=== PATIENT | male | born 1950 | race American Indian/Alaskan Native ===

== ENCOUNTER 2017-06-01 10:25 | Inpatient (IN) | payer MEDICARE ==
[2017-06-01 10:36] VITALS: BMI 24.3
--- NOTE | 2017-06-01 11:04 | ED PDOC ---
Arrival/HPI - General Chief Complaint: Abnormal Labs Time Seen by Provider: 06/01/17 10:57 Historian: Patient - History of Present Illness Narrative History of Present Illness (Text): 06/01/17 10:50 Shashank Michelle is a 67 year old male, whose past medical history includes CAD, stents, hypertension, and high cholesterol, who was sent in by Dr. Michelle, PMD, for evaluation of low WBC from routine blood work yesterday. Patient states that this has never happened to him before. Patient denies any urinary symptoms , hematuria, hematochezia. He does report dyspnea on exertion for 2 weeks. PMD: Dr. Michelle Time/Duration: 24 hours Symptom Onset: Gradual Symptom Course: Unchanged Activities at Onset: Rest Past Medical History - Provider Review Nursing Documentation Reviewed: Yes - Cardiac Hx Cardiac Disorders: Yes Hx Hypertension: Yes - Pulmonary Hx Respiratory Disorders: No - Neurological Hx Neurological Disorder: No - HEENT Hx HEENT Disorder: No - Renal Hx Renal Disorder: No - Endocrine/Metabolic Hx Endocrine Disorders: No - Hematological/Oncological Hx Blood Transfusions: No Hx Blood Transfusion Reaction: No - Integumentary Hx Dermatological Disorder: No - Musculoskeletal/Rheumatological Hx Falls: No - Gastrointestinal Hx Gastrointestinal Disorders: No - Genitourinary/Gynecological Hx Prostate Problems: Yes (enlarged) - Psychiatric Hx Psychophysiologic Disorder: No Hx Substance Use: No - Surgical History Hx Cardiac Catheterization: Yes Hx Coronary Stent: Yes (x2 04/2014, x2 2011) Hx Inguinal Hernia Repair: Yes (right) - Anesthesia Hx Anesthesia Reactions: No Hx Malignant Hyperthermia: No - Suicidal Assessment Feels Threatened In Home Enviroment: No Family/Social History - Physician Review Nursing Documentation Reviewed: Yes Family/Social History: No Known Family HX Smoking Status: Heavy Smoker > 10 Cigarettes Daily Hx Alcohol Use: No Hx Substance Use: No Hx Substance Use Treatment: No Allergies/Home Meds Allergies/Adverse Reactions: Allergies No Known Allergies Allergy (Verified 02/09/15 11:13) Home Medications: Home Meds Medication Instructions Recorded Confirmed Clopidogrel [Plavix] 75 mg PO DAILY 02/09/15 06/01/17 Enalapril Maleate [Enalapril] 10 mg PO DAILY 02/09/15 06/01/17 Simvastatin 40 mg PO DAILY 02/09/15 06/01/17 Tamsulosin [Flomax] 0.4 mg PO DAILY 02/09/15 06/01/17 amLODIPine [Norvasc] 10 mg PO DAILY 02/09/15 06/01/17 Review of Systems - Physician Review All systems were reviewed & negative as marked: Yes - Review of Systems Constitutional: Other (Low WBC). absent: Fevers, Night Sweats Eyes: absent: Vision Changes ENT: absent: Hearing Changes Respiratory: SOB (on exertion). absent: Cough Cardiovascular: absent: Chest Pain Gastrointestinal: absent: Abdominal Pain Genitourinary Male: absent: Dysuria Musculoskeletal: absent: Arthralgias Skin: absent: Rash, Pruritis Neurological: absent: Headache Endocrine: absent: Diaphoresis Hemo/Lymphatic: absent: Adenopathy Psychiatric: absent: Anxiety Physical Exam - Physical Exam Narrative Physical Exam (Text): Constitutional: No acute distress. Head: Normocephalic. Atraumatic. Eyes: PERRL. Conjunctival pallor. ENT: Moist mucous membranes. Neck: Supple. Cardiovascular: Regular rate. Cap refill < 2 seconds. Chest: No tenderness. Respiratory: Clear to auscultation bilaterally. GI: Soft. Nontender. Nondistended. Back: No CVA tenderness. Musculoskeletal: No tenderness or swelling of extremities. Skin: No rash. Neurologic: Alert, no focal deficit. Vital Signs Reviewed: Yes Vital Signs Temp Pulse Resp BP Pulse Ox 06/01/17 13:36 98.1 F 87 18 137/86 06/01/17 13:15 98.3 F 90 18 115/75 06/01/17 12:51 98.3 F 82 18 132/75 94 L 06/01/17 10:35 99 F 94 H 20 133/77 96 Temperature: Afebrile Blood Pressure: Normal Pulse: Regular Respiratory Rate: Tachypneic Appearance: Positive for: Well-Appearing, Non-Toxic, Comfortable Pain Distress: None Mental Status: Positive for: Alert and Oriented X 3 Medical Decision Making ED Course and Treatment: 06/01/17 10:57 Impression: 67 year old male complaining of low WBC, sent in by PMD after routine blood work yesterday. Plan: -- Type and Screen -- Labs -- Reassess and disposition Prior Visits: Notes and results from previous visits were reviewed. Patient last seen in the ED on 02/09/15 for RLQ abdominal pain for one day. Patient was admitted to hospitalist care for further evaluation. Progress Notes: 06/01/17 12:17 Chest X-ray: Dictator : Roland Harvey MD FINDINGS: LUNGS:No active pulmonary disease. PLEURA:No significant pleural effusion identified, no pneumothorax apparent. CARDIOVASCULAR:Mild cardiomegaly OSSEOUS STRUCTURES:No significant abnormalities. VISUALIZED UPPER ABDOMEN:Normal. OTHER FINDINGS:None. IMPRESSION: No active disease. Labs show pancytopenia, which confirms outpatient labs. Dr. Michelle recommends blood transfusion and will require further admission for evaluation of new pancytopenia and symptomatic anemia. - Lab Interpretations Lab Results: 06/01/17 11:18 06/01/17 11:18 Lab Results 06/01/17 11:18: Blood Type A POSITIVE, Antibody Screen Negative, Crossmatch See Detail, BBK History Checked Patient has bt 06/01/17 11:18: Sodium 141, Potassium 3.9, Chloride 107, Carbon Dioxide 25, Anion Gap 13, BUN 20, Creatinine 1.2, Est GFR ( Amer) > 60, Est GFR (Non- Af Amer) > 60, Random Glucose 106, Calcium 8.8, Total Bilirubin 0.6, AST 16, ALT 24, Alkaline Phosphatase 43, Total Protein 6.4, Albumin 4.0, Globulin 2.4, Albumin/Globulin Ratio 1.7 06/01/17 11:18: PT 16.8 H, INR 1.56 H, APTT 38.3 H 06/01/17 11:18: WBC 1.0 L* D, RBC 1.67 L, Hgb 5.4 L* D, Hct 17.3 L*, MCV 103.6, MCH 32.3, MCHC 31.2, RDW 17.4 H, Plt Count 124, MPV 9.3, Neutrophils % (Manual) 65, Band Neutrophils % 1, Lymphocytes % (Manual) 32, Monocytes % (Manual) 1, Eosinophils % (Manual) 1, Nucleated RBC % 1, Platelet Evaluation Low, Hypochromasia Slight, Poikilocytosis (manual Slight, Anisocytosis (manual) Slight, Ovalocytes Slight I have reviewed the lab results: Yes - RAD Interpretation Radiology Orders: 06/01/17 11:47 CHEST PORTABLE [RAD] Stat - Medication Orders Current Medication Orders: Amlodipine Besylate (Norvasc) 10 mg PO DAILY [facility] Atorvastatin Calcium (Lipitor) 40 mg PO DAILY [facility] Clopidogrel Bisulfate (Plavix) 75 mg PO DAILY [facility] Lisinopril (Zestril) 10 mg PO DAILY [facility] Nicotine (Nicoderm Cq) 1 patch TD DAILY [facility] Last Admin: 06/01/17 16:50 Dose: 1 patch Tamsulosin HCl (Flomax) 0.4 mg PO DAILY [facility] - Scribe Statement The provider has reviewed the documentation as recorded by the Michelle Westbrook Provider Scribe Attestation: All medical record entries made by the Michelle were at my direction and personally dictated by me. I have reviewed the chart and agree that the record accurately reflects my personal performance of the history, physical exam, medical decision making, and the department course for this patient. I have also personally directed, reviewed, and agree with the discharge instructions and disposition. Disposition/Present on Arrival - Present on Arrival Any Indicators Present on Arrival: No History of DVT/PE: No History of Uncontrolled Diabetes: No Urinary Catheter: No History of Decub. Ulcer: No History Surgical Site Infection Following: None - Disposition Have Diagnosis and Disposition been Completed?: Yes Diagnosis: Symptomatic anemia, Pancytopenia Disposition: HOSPITALIZED Disposition Time: 12:30 Patient Plan: Admission Condition: FAIR
[2017-06-01 11:30] LABS: MEAN CELL VOLUME 103.6 fL (80.0-105.0); MEAN CORPUSCULAR HEMOGLOBIN 32.3 pg (25.0-35.0); MEAN CORPUSCULAR HGB CONC 31.2 g/dl (31.0-37.0); MEAN PLATELET VOLUME 9.3 fl (7.0-11.0); PLATELET COUNT 124 10^3/uL (120.0-450.0); RBC 1.67 10^6/uL (3.5-6.1); RED CELL DISTRIBUTION WIDTH 17.4 % (11.5-14.5)
[2017-06-01 11:32] LABS: INR 1.56 (0.93-1.08); PARTIAL THROMBOPLASTIN TIME 38.3 Seconds (23.7-30.8); PROTHROMBIN TIME 16.8 Seconds (9.9-11.8)
[2017-06-01 11:33] LABS: ALB/GLOB RATIO 1.7 (1.1-1.8); ALT/SGPT 24 U/L (7-56); AST/SGOT 16 U/L (15-59); BLOOD UREA NITROGEN 20 mg/dL (7-21); CALCIUM 8.8 mg/dL (8.4-10.5); GFR AFRICAN-AMERICAN > 60; GFR NON-AFRICAN AMERICAN > 60
[2017-06-01 11:42] LABS: HEMOGLOBIN 5.4 gm/dL (14.0-18.0)
[2017-06-01 11:53] LABS: BAND 1 % (0-2); EOSINOPHIL 1 % (0.0-3.0); HYPOCHROMIA SLIGHT; LYMPHOCYTE 32 % (22.0-35.0); MONOCYTE 1 % (1.0-6.0); NEUTROPHIL 65 % (50.0-70.0); NUCLEATED RED BLOOD CELL 1 %; PLATELET ESTIMATE LOW (NORMAL); POIKILOCYTOSIS SLIGHT
[2017-06-01 11:54] LABS: ANISOCYTOSIS SLIGHT; OVALOCYTES SLIGHT
--- NOTE | 2017-06-01 12:08 | RAD ---
HISTORY: anemia COMPARISON: 02/09/2015 FINDINGS: LUNGS: No active pulmonary disease. PLEURA: No significant pleural effusion identified, no pneumothorax apparent. CARDIOVASCULAR: Mild cardiomegaly OSSEOUS STRUCTURES: No significant abnormalities. VISUALIZED UPPER ABDOMEN: Normal. OTHER FINDINGS: None. IMPRESSION: No active disease.
[2017-06-01] MEDS ORDERED: Barium Sulfate Susp 2.1% w/v, 2.0% w/w 450 mL Bottle PO ONE (19:22)
[2017-06-02 07:48] LABS: GRAN # 0.51 (1.4-6.5); LYMPH # 0.5 (1.2-3.4); LYMPH % 45.1 % (22.0-35.0); MEAN CORPUSCULAR HEMOGLOBIN 31.2 pg (25.0-35.0); MEAN CORPUSCULAR HGB CONC 32.1 g/dl (31.0-37.0); MEAN PLATELET VOLUME 9.9 fl (7.0-11.0); MONO % 2.9 % (1.0-6.0); PLATELET COUNT 119 10^3/uL (120.0-450.0); RBC 2.31 10^6/uL (3.5-6.1); RED CELL DISTRIBUTION WIDTH 19.9 % (11.5-14.5)
[2017-06-02 07:51] LABS: HEMOGLOBIN 7.2 gm/dL (14.0-18.0)
--- NOTE | 2017-06-02 09:27 | CARD ---
APPROVED REPORT EKG Measurement Heart [id number] <Conclusion> Sinus rhythm with occasional premature ventricular complexes and premature atrial complexes Possible Left atrial enlargement Borderline ECG
--- NOTE | 2017-06-02 10:19 | CP.PCM.CON ---
History of Present Illness - History of Present Illness History of Present Illness: this patient was seen and evaluated earlier . Discussed with nursing staff. This 67-year-old patient with a past medical history of coronary artery disease status post PCI on aspirin and Plavix hypertension dyslipidemia was found to have a very low blood count on routine examination was sent to the emergency room for further evaluation. Patient has been complaining of some shortness of breath on exertion. Denies any history of bleeding per rectum melena and abdominal pain. Past medical history Coronary artery disease Hypertension Status post appendicectomy Social history positive for smoking more than 10 per day denies alcohol Family history is noncontributory Allergies no known drug allergy Past Patient History - Past Social History Smoking Status: Heavy Smoker > 10 Cigarettes Daily - CARDIAC Hx Cardiac Disorders: Yes Hx Hypertension: Yes - PULMONARY Hx Respiratory Disorders: No - NEUROLOGICAL Hx Neurological Disorder: No - HEENT Hx HEENT Problems: No - RENAL Hx Chronic Kidney Disease: No - ENDOCRINE/METABOLIC Hx Endocrine Disorders: No - HEMATOLOGICAL/ONCOLOGICAL Hx Blood Transfusions: No Hx Blood Transfusion Reaction: No - INTEGUMENTARY Hx Dermatological Problems: No - MUSCULOSKELETAL/RHEUMATOLOGICAL Hx Falls: No - GASTROINTESTINAL Hx Gastrointestinal Disorders: No - GENITOURINARY/GYNECOLOGICAL Hx Prostate Problems: Yes (enlarged) - PSYCHIATRIC Hx Psychophysiologic Disorder: No Hx Substance Use: No - SURGICAL HISTORY Hx Cardiac Catheterization: Yes Hx Coronary Stent: Yes (x2 04/2014, x2 2011) - ANESTHESIA Hx Anesthesia Reactions: No Hx Malignant Hyperthermia: No Meds Allergies/Adverse Reactions: Allergies Allergy/AdvReac Type Severity Reaction Status Date / Time No Known Allergies Allergy Verified 02/09/15 11:13 - Medications Medications: Current Medications Amlodipine Besylate (Norvasc) 10 mg PO DAILY [facility] Atorvastatin Calcium (Lipitor) 40 mg PO DAILY [facility] Clopidogrel Bisulfate (Plavix) 75 mg PO DAILY [facility] Lisinopril (Zestril) 10 mg PO DAILY [facility] Nicotine (Nicoderm Cq) 1 patch TD DAILY [facility] Last Admin: 06/01/17 16:50 Dose: 1 patch Tamsulosin HCl (Flomax) 0.4 mg PO DAILY [facility] Physical Exam - Constitutional Appears: Well, No Acute Distress - Head Exam Head Exam: absent: ATRAUMATIC, NORMOCEPHALIC - Eye Exam Eye Exam: EOMI, PERRL - ENT Exam ENT Exam: Mucous Membranes Moist, Normal Exam - Neck Exam Neck exam: Negative for: Full Rom, Thyromegaly - Respiratory Exam Respiratory Exam: Clear to Auscultation Bilateral, NORMAL BREATHING PATTERN - Cardiovascular Exam Cardiovascular Exam: +S1, +S2. absent: JVD - GI/Abdominal Exam GI & Abdominal Exam: Normal Bowel Sounds. absent: Guarding, Mass, Tenderness - Extremities Exam Extremities exam: Negative for: pedal edema, tenderness - Neurological Exam Neurological exam: Alert, Oriented x3 - Psychiatric Exam Psychiatric exam: Normal Affect, Normal Mood Results - Vital Signs Recent Vital Signs: Last Vital Signs Temp 98.7 F 06/01/17 19:11 Pulse 87 06/01/17 19:11 Resp 16 06/01/17 19:11 BP 138/81 06/01/17 19:11 Pulse Ox 97 06/01/17 16:00 - Labs Result Diagrams: 06/02/17 07:00 06/01/17 11:18 Assessment & Plan - Assessment and Plan (Free Text) Assessment: 1. Pancytopenia rule out bone marrow etiology 2. Neutropenia ANC was 650 3. Coronary artery disease status post PCI on Plavix 4. Other comorbidities include dyslipidemia hypertension 5. Severe anemia hemoglobin 5.4. No obvious GI source of blood loss Plan: 1. Stool for occult blood 2. Iron studies serum B12 folate and close account 3. CT scan of the abdomen and pelvis with only by mouth contrast to rule out any mass lesion rule out retroperitoneal lymphadenopathy 4. Hematology evaluation 5. Neutropenic precautions Thank you very much for allowing us to participate in the care of the patient. [facility] will continue to closely follow up his care and suggest further recommendations based on the clinical course - Date & Time Date: 06/01/17 Time: 17:30
--- NOTE | 2017-06-02 10:32 | CP.PCM.HP ---
History of Present Illness - History of Present Illness History of Present Illness: 67 yo male with pancytopenia admitted for transfx and further eval Present on Admission - Present on Admission Any Indicators Present on Admission: No Past Patient History - Past Social History Smoking Status: Heavy Smoker > 10 Cigarettes Daily - CARDIAC Hx Cardiac Disorders: Yes Hx Hypertension: Yes - PULMONARY Hx Respiratory Disorders: No - NEUROLOGICAL Hx Neurological Disorder: No - HEENT Hx HEENT Problems: No - RENAL Hx Chronic Kidney Disease: No - ENDOCRINE/METABOLIC Hx Endocrine Disorders: No - HEMATOLOGICAL/ONCOLOGICAL Hx Anemia: Yes Hx Blood Transfusions: No Hx Blood Transfusion Reaction: No - INTEGUMENTARY Hx Dermatological Problems: No - MUSCULOSKELETAL/RHEUMATOLOGICAL Hx Falls: No - GASTROINTESTINAL Hx Gastrointestinal Disorders: No - GENITOURINARY/GYNECOLOGICAL Hx Prostate Problems: Yes (enlarged) - PSYCHIATRIC Hx Psychophysiologic Disorder: No Hx Substance Use: No - SURGICAL HISTORY Hx Cardiac Catheterization: Yes Hx Coronary Stent: Yes (x2 04/2014, x2 2011) - ANESTHESIA Hx Anesthesia Reactions: No Hx Malignant Hyperthermia: No Meds Allergies/Adverse Reactions: Allergies Allergy/AdvReac Type Severity Reaction Status Date / Time No Known Allergies Allergy Verified 02/09/15 11:13 Physical Exam - Head Exam Head Exam: ATRAUMATIC, NORMAL INSPECTION, NORMOCEPHALIC - Eye Exam Eye Exam: EOMI, Normal appearance, PERRL Pupil Exam: PERRL - ENT Exam ENT Exam: Mucous Membranes Moist - Neck Exam Neck exam: Positive for: Normal Inspection - Respiratory Exam Respiratory Exam: Clear to Auscultation Bilateral, NORMAL BREATHING PATTERN - Cardiovascular Exam Cardiovascular Exam: REGULAR RHYTHM - GI/Abdominal Exam GI & Abdominal Exam: Normal Bowel Sounds, Soft - Extremities Exam Extremities exam: Positive for: normal inspection - Back Exam Back exam: NORMAL INSPECTION - Neurological Exam Neurological exam: Alert, CN II-XII Intact, Normal Gait, Oriented x3, Reflexes Normal - Psychiatric Exam Psychiatric exam: Normal Affect, Normal Mood - Skin Skin Exam: Normal Color, Warm Results - Vital Signs Recent Vital Signs: Last Vital Signs Temp 98.8 F 06/02/17 08:24 Pulse 79 06/02/17 08:24 Resp 18 06/02/17 08:24 BP 148/91 H 06/02/17 09:36 Pulse Ox 95 06/02/17 08:24 - Labs Result Diagrams: 06/02/17 07:00 06/01/17 11:18 Labs: Laboratory Results - last 24 hr 06/02/17 07:00 WBC 1.0 L* RBC 2.31 L Hgb 7.2 L D Hct 22.4 L MCV 97.0 MCH 31.2 MCHC 32.1 RDW 19.9 H Plt Count 119 L MPV 9.9 Gran % 50.0 Lymph % (Auto) 45.1 H Lyon % (Auto) 2.9 Eos % (Auto) 2.0 Baso % (Auto) 0.0 Gran # 0.51 L Lymph # 0.5 L Lyon # 0.0 L Eos # 0.0 Baso # 0.00 Assessment & Plan (1) Pancytopenia Status: Acute (2) Symptomatic anemia Status: Acute (3) Hypertension Status: Acute - Assessment and Plan (Free Text) Plan: monitor Hb/Hct, GI consult, heme-onc consult, transfuse prbcs - Date & Time Date: 06/02/17 Time: 09:30
[2017-06-02 10:56] LABS: % IRON SATURATION 59 % (20-55); IRON 163 ug/dL (45-180); TOTAL IRON BINDING CAPACITY 276 ug/dL (261-462)
--- NOTE | 2017-06-02 14:02 | CT ---
PROCEDURE: CT abdomen and pelvis dated Leo seen note made. HISTORY: Low hemoglobin and hematocrit COMPARISON: Comparison made with CT scan abdomen pelvis 02/09/2015 TECHNIQUE: Contiguous helical/transaxial images of the abdomen and pelvis performed following oral contrast administration. Intravenous contrast not injected per request. Additional 2 dimensional sagittal and coronal reformats provided. Radiation dose: Total exam DLP = 419.08 mGy-cm. This CT exam was performed using one or more of the following dose reduction techniques: Automated exposure control, adjustment of the mA and/or kV according to patient size, and/or use of iterative reconstruction technique. FINDINGS: LOWER THORAX: Heart is enlarged. In addition, the the cardiac chambers exhibit low attenuation suggesting anemia however clinical correlation recommended. No significant pericardial effusion. Mild atelectasis/scarring changes present within both lung bases including the lingular and middle lobe regions. No evidence of effusion or basilar pneumothorax. Small hiatal hernia. The go LIVER: The liver exhibits normal size measuring approximately 16.2 cm in CC in dimension. . There are several low-attenuation foci within the left left lobe liver under a cm in size in exhibiting Hounsfield units in the single digits likely representing cysts. Additionally, there is and 12.4 mm elliptical shaped low-attenuation focus inferior aspect right lobe liver also likely representing cyst. Followup interval could be performed to assess stability. Note that there appears to be additional very tiny foci scattered throughout the left and right lobes too small to characterize. GALLBLADDER AND BILE DUCTS: The gallbladder is physiologically distended. No evidence of intraluminal gallbladder calculi. PANCREAS: Visualized portions of the pancreas appear unremarkable without mass collection or calcification. No gross intrahepatic biliary ductal dilatation. Move to the SPLEEN: The spleen exhibits normal size and attenuation pattern without mass collection or calcification. ADRENALS: No adrenal lesions seen. KIDNEYS AND URETERS: There are multiple low-attenuation foci left kidney the largest of which are located in the upper and midpole region consistent with renal cysts. The largest in the anteromedial upper pole measures approximately 5.1 cm and the 2nd largest in the upper/ midpole posteriorly measures approximately 4.3 cm. There are also a few smaller low-attenuation foci lower pole right kidney. Mild infiltration changes seen in the perinephric fat bilaterally nonspecific. No evidence of nephrolithiasis or hydronephrosis BLADDER: Urinary bladder is incompletely distended which may in part account for thick-walled appearance. Muscular hypertrophy may contribute. Note that the possibility of an intrinsic/ invasive wall lesion not excluded. As there is markedly enlarged prostate gland which encroaches into the floor of the urinary bladder and as such may be indistinguishable from a bladder wall lesion arising from the floor. REPRODUCTIVE: As mentioned above, the prostate gland is enlarged. Prostate gland measures approximately 6.7 cm trans by 7.65 cm cc by 7.0 cm in AP. Findings likely due to BPH however correlation with PSA recommended to exclude prostate carcinoma. Prostatic calcification noted. APPENDIX: Normal-appearing appendix of best seen on coronal image number [id number]. No periappendiceal inflammatory changes. BOWEL: Evaluation of the bowel is limited due to incomplete opacification. Stomach is incompletely distended which may account for thick-walled appearance. Gastritis or other intrinsic/invasive wall lesion not excluded. Visualized. There is AP somewhat ill-defined soft tissue density in the right lower quadrant of the abdomen anteriorly abutting the anterolateral abdominal wall. This could represent a conglomeration of under opacified small bowel however an concomitant inflammatory process or other soft tissue lesion not completely excluded. Clinical correlation recommended. Repeat CT scan with oral and intravenous contrast material to assess small bowel in this area recommended. No evidence of acute mechanical small bowel obstruction. Oral contrast material has extended into the colon to the level of the rectum. PERITONEUM: No gross free intraperitoneal air. No definitive free or loculated fluid collections. LYMPH NODES: Ill-defined soft tissue in the right aspect of the retroperitoneum adjacent to the anterior aspect of the IVC. The possibility of adenopathy this location not excluded. Additionally, there also appears to be multiple smaller retroperitoneal and probably some mesenteric lymph nodes. VASCULATURE: Unremarkable. No aortic aneurysm. BONES: Mild multilevel degenerative spondylosis of the lower thoracic and lumbar spine. There are no acute compression fractures no retropulsed fragments. Small bone island within the right femoral neck. No other suspicious sclerotic or lytic lesions identified. OTHER FINDINGS: None. IMPRESSION: There is a soft tissue density within the right lower quadrant of the abdomen of bordering the anterolateral aspect of the abdominal wall which may represent under opacified loops of small bowel however the possibility of an inflammatory process or other soft tissue lesion cannot be completely excluded. Recommend repeat CT scan with oral and intravenous contrast material to assess small bowel in this area. Suspect adenopathy in the right aspect of the retroperitoneum anterior to the IVC. There also appear to be small nonspecific retroperitoneal lymph nodes and possibly some mesenteric lymph nodes nonspecific. Multiple low-attenuation foci scattered throughout the hepatic parenchyma likely representing cysts however followup at interval could be performed to assess stability. Multiple bilateral renal cysts are present. Nonspecific infiltration changes seen within the perinephric fat bilaterally right greater than left. Markedly enlarged prostate gland which encroaches into the floor of the urinary bladder. Findings may be secondary to BPH however correlation with PSA recommended to exclude prostatic carcinoma. Wall thickening of the urinary bladder in part due to incomplete distention and muscular hypertrophy however given the encroachment of prostate gland into the floor of the urinary bladder, the possibility of a intrinsic invasive/lesion of the of the wall of the urinary bladder along the floor cannot be excluded. Clinical correlation recommended. No evidence of acute appendicitis. Findings consistent with thumb anemia as detailed above
[2017-06-02 18:07] LABS: FOLATE 8.1 ng/mL
[2017-06-03 09:07] LABS: HEMOGLOBIN 8.5 gm/dL (14.0-18.0); MEAN CELL VOLUME 92.6 fL (80.0-105.0); MEAN CORPUSCULAR HEMOGLOBIN 29.8 pg (25.0-35.0); MEAN CORPUSCULAR HGB CONC 32.2 g/dl (31.0-37.0); MEAN PLATELET VOLUME 9.1 fl (7.0-11.0); RBC 2.85 10^6/uL (3.5-6.1); RED CELL DISTRIBUTION WIDTH 20.2 % (11.5-14.5)
[2017-06-03 09:11] LABS: WHITE BLOOD COUNT 1.5 10^3/ul (4.5-11.0)
--- NOTE | 2017-06-03 12:36 | CP.PCM.PN ---
Subjective - Date & Time of Evaluation Date of Evaluation: 06/03/17 Time of Evaluation: 11:00 - Subjective Subjective: nad, no melena, no brbpr Objective - Vital Signs/Intake and Output Vital Signs (last 24 hours): Temp Pulse Resp BP Pulse Ox 98.4 F 76 20 139/88 95 06/03/17 08:17 06/03/17 08:17 06/03/17 08:17 06/03/17 10:39 06/03/17 08:17 Intake and Output: 06/03/17 06/03/17 06:59 18:59 Intake Total 825 240 Balance 825 240 - Medications Medications: Current Medications Amlodipine Besylate (Norvasc) 10 mg PO DAILY [facility] Last Admin: 06/03/17 10:39 Dose: 10 mg Atorvastatin Calcium (Lipitor) 40 mg PO DAILY [facility] Last Admin: 06/03/17 10:39 Dose: 40 mg Clopidogrel Bisulfate (Plavix) 75 mg PO DAILY [facility] Last Admin: 06/03/17 10:39 Dose: 75 mg Lisinopril (Zestril) 10 mg PO DAILY [facility] Last Admin: 06/03/17 10:39 Dose: 10 mg Nicotine (Nicoderm Cq) 1 patch TD DAILY [facility] Last Admin: 06/03/17 10:39 Dose: 1 patch Tamsulosin HCl (Flomax) 0.4 mg PO DAILY [facility] Last Admin: 06/03/17 10:39 Dose: 0.4 mg - Labs Labs: 06/03/17 08:30 PT 16.8 Seconds (9.9-11.8) H 06/01/17 11:18 INR 1.56 (0.93-1.08) H 06/01/17 11:18 APTT 38.3 Seconds (23.7-30.8) H 06/01/17 11:18 - Neck Exam Neck Exam: Full ROM - Respiratory Exam Respiratory Exam: Clear to Ausculation Bilateral, NORMAL BREATHING PATTERN - GI/Abdominal Exam GI & Abdominal Exam: Soft, Normal Bowel Sounds - Extremities Exam Extremities Exam: Full ROM, Normal Inspection - Neurological Exam Neurological Exam: Alert, Oriented x3 - Skin Skin Exam: Dry, Warm Assessment and Plan (1) Pancytopenia Status: Acute (2) Symptomatic anemia Status: Acute (3) Hypertension Status: Acute - Assessment and Plan (Free Text) Plan: monitor wbc, hb/hct, heme-on and GI w/u pending
[2017-06-03 16:31] VITALS: BP 126/84; PULSE 70; RESP 18; TEMP 98; O2SAT 96
[2017-06-03] MEDS ORDERED: Phytonadione 10 mg/ml Inj (Adult) SC ONE (22:35)
--- NOTE | 2017-06-03 22:45 | CP.PCM.CON ---
History of Present Illness - History of Present Illness History of Present Illness: 67 yo man sent to the ER by PMD because of low blood counts for transfusion and work up. 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 Patient denies night sweats, weight loss, bleeding, easy bruising, melena, BRBPR. PMHx- HTN, hyperlipidemia, ? history of pancytopenia with peripheral smear review done at for pancytopenia showing no increase in blasts or spherocytes. SocHX- H/O smoking 10 cigarettes daily for several years, lives alone, no ETOH use. Past Patient History - Past Social History Smoking Status: Heavy Smoker > 10 Cigarettes Daily - CARDIAC Hx Cardiac Disorders: Yes Hx Hypertension: Yes - PULMONARY Hx Respiratory Disorders: No - NEUROLOGICAL Hx Neurological Disorder: No - HEENT Hx HEENT Problems: No - RENAL Hx Chronic Kidney Disease: No - ENDOCRINE/METABOLIC Hx Endocrine Disorders: No - HEMATOLOGICAL/ONCOLOGICAL Hx Anemia: Yes Hx Blood Transfusions: No Hx Blood Transfusion Reaction: No - INTEGUMENTARY Hx Dermatological Problems: No - MUSCULOSKELETAL/RHEUMATOLOGICAL Hx Falls: No - GASTROINTESTINAL Hx Gastrointestinal Disorders: No - GENITOURINARY/GYNECOLOGICAL Hx Prostate Problems: Yes (enlarged) - PSYCHIATRIC Hx Psychophysiologic Disorder: No Hx Substance Use: No - SURGICAL HISTORY Hx Cardiac Catheterization: Yes Hx Coronary Stent: Yes (x2 04/2014, x2 2011) - ANESTHESIA Hx Anesthesia Reactions: No Hx Malignant Hyperthermia: No Meds Allergies/Adverse Reactions: Allergies Allergy/AdvReac Type Severity Reaction Status Date / Time No Known Allergies Allergy Verified 02/09/15 11:13 - Medications Medications: Current Medications Amlodipine Besylate (Norvasc) 10 mg PO DAILY [facility] Last Admin: 06/03/17 10:39 Dose: 10 mg Atorvastatin Calcium (Lipitor) 40 mg PO DAILY [facility] Last Admin: 06/03/17 10:39 Dose: 40 mg Clopidogrel Bisulfate (Plavix) 75 mg PO DAILY [facility] Last Admin: 06/03/17 10:39 Dose: 75 mg Cyanocobalamin (Vitamin B12 1000 Mcg/Ml Inj) 1,000 mcg SC DAILY [facility] Folic Acid (Folic Acid) 1 mg PO DAILY [facility] Lisinopril (Zestril) 10 mg PO DAILY [facility] Last Admin: 06/03/17 10:39 Dose: 10 mg Nicotine (Nicoderm Cq) 1 patch TD DAILY [facility] Last Admin: 06/03/17 10:39 Dose: 1 patch Phytonadione (Vitamin K Inj) 10 mg SC ONCE ONE Stop: 06/03/17 22:36 Tamsulosin HCl (Flomax) 0.4 mg PO DAILY [facility] Last Admin: 06/03/17 10:39 Dose: 0.4 mg Results - Vital Signs Recent Vital Signs: Last Vital Signs Temp 98.0 F 06/03/17 16:31 Pulse 70 06/03/17 16:31 Resp 18 06/03/17 16:31 BP 126/84 06/03/17 16:31 Pulse Ox 96 06/03/17 16:31 - Labs Result Diagrams: 06/03/17 08:30 06/01/17 11:18 Labs: Laboratory Results - last 24 hr 06/03/17 06/03/17 08:30 10:04 WBC 1.5 L* D RBC 2.85 L Hgb 8.5 L Hct 26.4 L MCV 92.6 MCH 29.8 MCHC 32.2 RDW 20.2 H Plt Count 114 L MPV 9.1 Stool Occult Blood Negative Assessment & Plan (1) Pancytopenia Assessment and Plan: Pancytopenia , neutropenia, progressive, ( for at least one year) with macrocytosis, without any history of liver disease, hypersplenism, evidence of hemolysis or immature cells in peripheral blood. DD- .Myelodysplastic syndrome .Megaloblastic anemia. Will replace B12, folic acid. Will need bone marrow exam, have discussed with patient about this and he is agreeable. Have discussed neutropenia and risks with patient( he has done fairly well despite this, as an outpatient). Status: Acute
[2017-06-04] MEDS ORDERED: Phytonadione 10 mg/ml Inj (Adult) SC ONE (05:00)
--- NOTE | 2017-06-04 14:05 | CP.PCM.DIS ---
Provider - Provider Date of Admission: 06/01/17 12:30 Attending physician: Ruben Michelle JD, MD Primary care physician: Ruben Michelle JD, MD Time Spent in preparation of Discharge (in minutes): 30 Diagnosis - Discharge Diagnosis (1) Pancytopenia Status: Acute (2) Symptomatic anemia Status: Acute (3) Hypertension Status: Acute Hospital Course - Lab Results Lab Results: Most Recent Lab Values WBC 1.5 10^3/ul (4.5-11.0) L* D 06/03/17 08:30 RBC 2.85 10^6/uL (3.5-6.1) L 06/03/17 08:30 Hgb 8.5 gm/dL (14.0-18.0) L 06/03/17 08:30 Hct 26.4 % (42.0-52.0) L 06/03/17 08:30 MCV 92.6 fL (80.0-105.0) 06/03/17 08:30 MCH 29.8 pg (25.0-35.0) 06/03/17 08:30 MCHC 32.2 g/dl (31.0-37.0) 06/03/17 08:30 RDW 20.2 % (11.5-14.5) H 06/03/17 08:30 Plt Count 114 10^3/uL (120.0-450.0) L 06/03/17 08:30 MPV 9.1 fl (7.0-11.0) 06/03/17 08:30 Gran % 50.0 % (50.0-68.0) 06/02/17 07:00 Lymph % (Auto) 45.1 % (22.0-35.0) H 06/02/17 07:00 Maury % (Auto) 2.9 % (1.0-6.0) 06/02/17 07:00 Eos % (Auto) 2.0 % (1.5-5.0) 06/02/17 07:00 Baso % (Auto) 0.0 % (0.0-3.0) 06/02/17 07:00 Gran # 0.51 (1.4-6.5) L 06/02/17 07:00 Lymph # 0.5 (1.2-3.4) L 06/02/17 07:00 Maury # 0.0 (0.1-0.6) L 06/02/17 07:00 Eos # 0.0 (0.0-0.7) 06/02/17 07:00 Baso # 0.00 K/mm3 (0.0-2.0) 06/02/17 07:00 Neutrophils % (Manual) 65 % (50.0-70.0) 06/01/17 11:18 Band Neutrophils % 1 % (0-2) 06/01/17 11:18 Lymphocytes % (Manual) 32 % (22.0-35.0) 06/01/17 11:18 Monocytes % (Manual) 1 % (1.0-6.0) 06/01/17 11:18 Eosinophils % (Manual) 1 % (0.0-3.0) 06/01/17 11:18 Nucleated RBC % 1 % 06/01/17 11:18 Platelet Evaluation Low (NORMAL) 06/01/17 11:18 Hypochromasia Slight 06/01/17 11:18 Poikilocytosis (manual Slight 06/01/17 11:18 Anisocytosis (manual) Slight 06/01/17 11:18 Ovalocytes Slight 06/01/17 11:18 Retic Count 0.97 % (0.5-1.5) 06/02/17 10:30 PT 16.8 Seconds (9.9-11.8) H 06/01/17 11:18 INR 1.56 (0.93-1.08) H 06/01/17 11:18 APTT 38.3 Seconds (23.7-30.8) H 06/01/17 11:18 Sodium 141 mmol/L (132-148) 06/01/17 11:18 Potassium 3.9 mmol/L (3.6-5.0) 06/01/17 11:18 Chloride 107 mmol/L (98-107) 06/01/17 11:18 Carbon Dioxide 25 mmol/L (21-33) 06/01/17 11:18 Anion Gap 13 (10-20) 06/01/17 11:18 BUN 20 mg/dL (7-21) 06/01/17 11:18 Creatinine 1.2 mg/dL (0.5-1.4) 06/01/17 11:18 Est GFR ( Amer) > 60 06/01/17 11:18 Est GFR (Non-Af Amer) > 60 06/01/17 11:18 Random Glucose 106 mg/dL (70-110) 06/01/17 11:18 Calcium 8.8 mg/dL (8.4-10.5) 06/01/17 11:18 Iron 163 ug/dL (45-180) 06/02/17 10:30 TIBC 276 ug/dL (261-462) 06/02/17 10:30 % Saturation 59 % (20-55) H 06/02/17 10:30 Ferritin 109.0 ng/mL 06/02/17 10:30 Total Bilirubin 0.6 mg/dL (0.2-1.3) 06/01/17 11:18 AST 16 U/L (15-59) 06/01/17 11:18 ALT 24 U/L (7-56) 06/01/17 11:18 Alkaline Phosphatase 43 U/L (38-133) 06/01/17 11:18 Lactate Dehydrogenase 469 U/L (333-699) 06/04/17 06:00 Total Protein 6.4 g/dL (5.8-8.3) 06/01/17 11:18 Albumin 4.0 g/dL (3.0-4.8) 06/01/17 11:18 Globulin 2.4 gm/dL 06/01/17 11:18 Albumin/Globulin Ratio 1.7 (1.1-1.8) 06/01/17 11:18 Vitamin B12 246 pg/mL (239-931) 06/02/17 10:30 Folate 8.1 ng/mL 06/02/17 10:30 Stool Occult Blood Negative (NEGATIVE) 06/03/17 10:04 Blood Type A POSITIVE 06/01/17 11:18 Antibody Screen Negative 06/01/17 11:18 Crossmatch See Detail 06/01/17 11:18 BBK History Checked Patient has bt 06/01/17 11:18 - Hospital Course Hospital Course: recieved 4 units prbcs, seen in consult by june rousseau for GI, no complications, outpatient w/u including BMBx recommended Discharge Exam - Head Exam Head Exam: ATRAUMATIC, NORMAL INSPECTION, NORMOCEPHALIC - Respiratory Exam Respiratory Exam: Clear to PA & Lateral, NORMAL BREATHING PATTERN - Cardiovascular Exam Cardiovascular Exam: REGULAR RHYTHM - GI/Abdominal Exam GI & Abdominal Exam: Normal Bowel Sounds Discharge Plan - Follow Up Plan Condition: FAIR Disposition: HOME/ ROUTINE Instructions: Anemia (DC), Vitamin B12 Deficiency (GEN) Additional Instructions: PT instructed to follow up with Dr. Forbes this week. PT instructed to follow up with Dr. Michelle for repeat labs next week. Referrals: Pedro Forbes MD [Medical Doctor] - Kojo Martins MD [Medical Doctor] -
--- NOTE | 2017-06-05 00:28 | PN ---
DATE: 06/04/2017 SUBJECTIVE: Seen and examined at the bedside earlier today. The patient denies any nausea, vomiting, or abdominal pain. No reports of any overt GI bleed. The patient with no new complaints. PHYSICAL EXAMINATION: VITAL SIGNS: Temperature 98, blood pressure 126/84, respirations 18, pulse 72, 97% on room air. HEENT: Sclerae are anicteric. NECK: Supple. CARDIAC: S1 and S2. LUNGS: Sound clear. ABDOMEN: With bowel sounds, soft, nontender. EXTREMITIES: No edema. NEURO: Awake, alert, and oriented. LABORATORY DATA: No new labs are noted for today. He did have stool for guaiac that was negative. Labs from yesterday were reviewed. The WBC is 1.5, H and H is 8.5 and 26.4. His CMP was within normal limits. The percent saturation is 59, iron 163, TIBC 276. ASSESSMENT AND PLAN: This is a 67-year-old male with a history of hypertension came with symptomatic anemia and pancytopenia. The patient is status post 4 units of packed RBC, history of coronary artery disease status post percutaneous coronary intervention was on aspirin and Plavix was found to have low blood count, presented to Emergency Room for further evaluation. The patient did have CT scan of abdomen and pelvis. It showed some soft tissue density in the right lower quadrant of the abdomen, could be *------* loops of small bowel, however, the possibility of an inflammatory process or soft tissue lesion cannot be completely excluded. There was also some small nonspecific retroperitoneal lymph nodes and possibly some mesenteric lymph nodes, nonspecific. Recommend IV contrast, this was done with oral contrast. Spoke to the patient, he is getting discharged today. He would benefit from GI workup at some point when his leukopenia has improved. He is right now undergoing workup with Hematology. He is to see Dr. Forbes later on this week as outpatient and for repeat labs next week. The patient was seen and case discussed with Dr. Martins. GHAZALA Leal
== END 2017-06-04 11:40 | disposition home or self-care (01) | DRG 810 ==
LOC: ED 10:25 → ERH 12:30 → 3RSO 13:53
PROVIDERS: ADMIT Internal Medicine; ATTEND Internal Medicine
DX: D61.818 Other pancytopenia (principal); D70.9 Neutropenia, unspecified; I10 Essential (primary) hypertension; D53.1 Other megaloblastic anemias, not elsewhere classified; D46.9 Myelodysplastic syndrome, unspecified; D75.89 Other specified diseases of blood and blood-forming organs; E78.00 Pure hypercholesterolemia, unspecified; E78.5 Hyperlipidemia, unspecified; I25.10 Atherosclerotic heart disease of native coronary artery without angina pectoris; Z79.02 Long term (current) use of antithrombotics/antiplatelets; Z79.899 Other long term (current) drug therapy; F17.210 Nicotine dependence, cigarettes, uncomplicated; Z95.5 Presence of coronary angioplasty implant and graft

== ENCOUNTER 2018-01-04 13:49 | Inpatient (IN) | payer MEDICARE, SELFPAY ==
[2018-01-04 14:41] VITALS: BMI 29.0
[2018-01-04] MEDS ORDERED: Promethazine/Cod 6.25mg-10mg/5ml Syr UD PO STA (14:42)
[2018-01-04] MEDS ORDERED: Albuterol 0.083% Inhal Sol (2.5 mg/3 mL) UD INH STA ×2 (14:43→18:21)
[2018-01-04] MEDS ORDERED: Sodium Chloride 0.9% 1,000 ML IV STA (14:43)
[2018-01-04 15:28] LABS: GRAN # 0.78 (1.4-6.5); GRAN % 81.2 % (50.0-68.0); HEMOGLOBIN 8.3 g/dL (14.0-18.0); LYMPH # 0.2 (1.2-3.4); LYMPH % 18.8 % (22.0-35.0); MEAN CELL VOLUME 99.6 fl (80.0-105.0); MEAN CORPUSCULAR HEMOGLOBIN 32.3 pg (25.0-35.0); MEAN CORPUSCULAR HGB CONC 32.4 g/dl (31.0-37.0); MEAN PLATELET VOLUME 10.4 fl (7.0-11.0); RBC 2.57 10^6/uL (3.5-6.1); RED CELL DISTRIBUTION WIDTH 17.9 % (11.5-14.5)
[2018-01-04 15:42] LABS: INR 1.45 (0.93-1.08); PARTIAL THROMBOPLASTIN TIME 29.8 Seconds (25.1-36.5); PROTHROMBIN TIME 16.6 SECONDS (9.4-12.5)
[2018-01-04 15:44] LABS: ALB/GLOB RATIO 1.8 (1.1-1.8); ALBUMIN 3.9 g/dL (3.0-4.8); ALT/SGPT 23 U/L (7-56); AST/SGOT 20 U/L (17-59); BLOOD UREA NITROGEN 22 mg/dL (7-21); CALCIUM 8.6 mg/dL (8.4-10.5); GFR AFRICAN-AMERICAN > 60; GFR NON-AFRICAN AMERICAN > 60
--- NOTE | 2018-01-04 15:54 | RAD ---
HISTORY: cough COMPARISON: 06/01/2017 FINDINGS: LUNGS: The lungs are well inflated. There is mild pulmonary venous congestion and mild interstitial pulmonary edema. There is ill-defined haziness in the right lower lobe. PLEURA: No significant pleural effusion identified, no pneumothorax apparent. CARDIOVASCULAR: The heart remains enlarged. OSSEOUS STRUCTURES: No significant abnormalities. VISUALIZED UPPER ABDOMEN: Normal. OTHER FINDINGS: None. IMPRESSION: Ill-defined haziness in the right lower lobe may represent developing pneumonia or pulmonary edema. Persistent mild cardiomegaly and pulmonary venous congestion.
[2018-01-04 16:25] LABS: VENOUS BLOOD GAS BASE EXCESS 0.5 mmol/L (0.0-2.0); VENOUS BLOOD GAS PO2 81 mm/Hg (30-55); VENOUS BLOOD PH 7.43 (7.32-7.43)
[2018-01-04] MEDS ORDERED: Amoxicillin-Clav 875-125 mg Tab PO STA (16:50)
--- NOTE | 2018-01-04 18:21 | ED PDOC ---
Arrival/HPI - General Chief Complaint: Weakness/Neurological Deficit Time Seen by Provider: 01/04/18 14:37 Historian: Patient - History of Present Illness Narrative History of Present Illness (Text): 01/04/18 18:18 67yo male with PMhx of myelodysplastic syndrome and on Chemotherapy referred to ED by his PMD for complaint of generalized weakness, fever, yellow productive cough, SOB with the cough, decreased appetite x 2days. He did not take any medication for the symptoms. Denies sick contact, travel, chest pain, diaphoresis, LE edema, calf pain, dizziness, nausea, abdominal pain, any other complaint. Past Medical History - Provider Review Nursing Documentation Reviewed: Yes - Cardiac Hx Cardiac Disorders: Yes Hx Hypertension: Yes - Pulmonary Hx Respiratory Disorders: No - Neurological Hx Neurological Disorder: No - HEENT Hx HEENT Disorder: No - Renal Hx Renal Disorder: No - Endocrine/Metabolic Hx Endocrine Disorders: No - Hematological/Oncological Hx Blood Disorders: Yes Hx Anemia: Yes Hx Blood Transfusions: No Hx Blood Transfusion Reaction: No - Integumentary Hx Dermatological Disorder: No - Musculoskeletal/Rheumatological Hx Musculoskeletal Disorders: No Hx Falls: No - Gastrointestinal Hx Gastrointestinal Disorders: No - Genitourinary/Gynecological Hx Genitourinary Disorders: No Hx Prostate Problems: Yes (enlarged) - Psychiatric Hx Psychophysiologic Disorder: No Hx Substance Use: No - Surgical History Hx Cardiac Catheterization: Yes Hx Coronary Stent: Yes (x2 04/2014, x2 2011) Other/Comment: fatty tissue removed from left shoulder/ back - Anesthesia Hx Anesthesia: Yes Hx Anesthesia Reactions: No Hx Malignant Hyperthermia: No - Suicidal Assessment Feels Threatened In Home Enviroment: No Family/Social History - Physician Review Nursing Documentation Reviewed: Yes Family/Social History: Unknown Family HX Smoking Status: Heavy Smoker > 10 Cigarettes Daily Hx Alcohol Use: No Hx Substance Use: No Hx Substance Use Treatment: No Allergies/Home Meds Allergies/Adverse Reactions: Allergies No Known Allergies Allergy (Verified 02/09/15 11:13) Home Medications: Home Meds Medication Instructions Recorded Confirmed Enalapril Maleate 10 mg PO DAILY 02/09/15 01/04/18 Simvastatin 40 mg PO DAILY 02/09/15 01/04/18 Omeprazole [Omeprazole] 20 mg PO DAILY 09/06/17 01/04/18 Review of Systems - Physician Review All systems were reviewed & negative as marked: Yes - Review of Systems Constitutional: Fatigue, Fevers Eyes: Normal ENT: Normal Respiratory: SOB, Cough, Sputum. absent: Wheezing Cardiovascular: Normal Gastrointestinal: Normal Genitourinary Male: Normal Musculoskeletal: Normal Skin: Normal Neurological: Normal Endocrine: Normal Hemo/Lymphatic: Normal Psychiatric: Normal Physical Exam Vital Signs Reviewed: Yes Vital Signs Temp Pulse Resp BP Pulse Ox 01/04/18 18:58 84 18 125/73 93 L 01/04/18 17:06 18 133/78 93 L 01/04/18 15:57 88 18 115/69 97 01/04/18 14:55 100.3 F H 86 18 129/60 96 Temperature: Febrile Blood Pressure: Normal Pulse: Regular Respiratory Rate: Normal Appearance: Positive for: Well-Appearing, Non-Toxic, Comfortable Pain Distress: None Mental Status: Positive for: Alert and Oriented X 3 - Systems Exam Head: Present: Atraumatic, Normocephalic Pupils: Present: PERRL Extroacular Muscles: Present: EOMI Conjunctiva: Present: Normal Mouth: Present: Moist Mucous Membranes Pharnyx: Present: Normal Neck: Present: Normal Range of Motion Respiratory/Chest: Present: Clear to Auscultation, Good Air Exchange. No: Respiratory Distress, Accessory Muscle Use, Wheezes, Decreased Breath Sounds, Rales, Retracting, Rhonchi Cardiovascular: Present: Regular Rate and Rhythm, Normal S1, S2. No: Murmurs Abdomen: Present: Normal Bowel Sounds. No: Tenderness, Distention, Peritoneal Signs Back: Present: Normal Inspection Upper Extremity: Present: Normal Inspection. No: Cyanosis, Edema Lower Extremity: Present: Normal Inspection. No: Edema Neurological: Present: GCS=15, CN II-XII Intact, Speech Normal Skin: Present: Warm, Dry, Normal Color. No: Rashes Psychiatric: Present: Alert, Oriented x 3, Normal Insight, Normal Concentration Medical Decision Making ED Course and Treatment: 01/04/18 20:01 PT in ED for stated history. He was febrile on presentation. Rapid flu was positive and pt have RLL infiltrate. Blood culture is pending. Levaquin ordered Case was MARGIE Michelle and he requested that pt be admitted to Dr. Nichols's service, hence he will be away this weekend Case was MARGIE Nichols and pt was admitted. 01/04/18 20:13 Pt was hypoxic 93% and 3L of NC oxygen was placed. EKG Sinus rhythm with PAC @95bpm. - Lab Interpretations Lab Results: 01/04/18 14:55 01/04/18 14:55 Lab Results 01/04/18 14:55: Influenza Typ A,B (EIA) Pos for influenza b H 01/04/18 14:55: Sodium 141, Chloride 106, Potassium 3.9, Carbon Dioxide 24, Anion Gap 16, BUN 22 H, Creatinine 1.2, Est GFR ( Amer) > 60, Est GFR ( Non-Af Amer) > 60, Random Glucose 103, Calcium 8.6, Total Bilirubin 1.2, AST 20 , ALT 23, Alkaline Phosphatase 67, Total Protein 6.0, Albumin 3.9, Globulin 2.2 , Albumin/Globulin Ratio 1.8 01/04/18 14:55: pO2 81 H, VBG pH 7.43, VBG pCO2 37.0 L, VBG HCO3 24.6, VBG Total CO2 25.7, VBG O2 Sat (Calc) 98.5 H, VBG Base Excess 0.5, VBG Potassium 4.1 , Sodium 138.0, Chloride 107.0, Glucose 109, Lactate 1.3, FiO2 21.0, Venous Blood Potassium 4.1 01/04/18 14:55: PT 16.6 H, INR 1.45 H, APTT 29.8 01/04/18 14:55: WBC 1.0 L*, RBC 2.57 L, Hgb 8.3 L, Hct 25.6 L, MCV 99.6, MCH 32.3, MCHC 32.4, RDW 17.9 H, Plt Count 77 L, MPV 10.4, Gran % 81.2 H, Lymph % ( Auto) 18.8 L, Dillon % (Auto) 0.0 L, Eos % (Auto) 0.0 L, Baso % (Auto) 0.0, Gran # 0.78 L, Lymph # (Auto) 0.2 L, Dillon # (Auto) 0.0 L, Eos # (Auto) 0.0, Baso # ( Auto) 0.00 - RAD Interpretation Radiology Orders: 01/04/18 14:42 CHEST PORTABLE [RAD] Stat - Medication Orders Current Medication Orders: Discontinued Medications Albuterol Sulfate (Albuterol 0.083% Inhal Karma (2.5 Mg/3 Ml) Ud) 2.5 mg INH STAT STA Stop: 01/04/18 14:44 Last Admin: 01/04/18 14:56 Dose: 2.5 mg Albuterol Sulfate (Albuterol 0.083% Inhal Karma (2.5 Mg/3 Ml) Ud) 2.5 mg INH STAT STA Stop: 01/04/18 18:22 Last Admin: 01/04/18 19:26 Dose: 2.5 mg Amoxicillin/Clavulanate Potassium (Augmentin 875 Mg-125 Mg Tab) 1 tab PO STAT STA PRN Reason: Protocol Stop: 01/04/18 16:51 Last Admin: 01/04/18 17:16 Dose: 1 tab Sodium Chloride (Sodium Chloride 0.9%) 1,000 mls @ 999 mls/hr IV .Q1H1M STA Stop: 01/04/18 15:43 Last Admin: 01/04/18 14:56 Dose: 999 mls/hr eMAR Start Stop Document 01/04/18 14:56 SF (Rec: 01/04/18 14:56 SF [id number]) Intravenous Solution Start Date 01/04/18 Start Time 14:56 End Date 01/04/18 End time 15:57 Total Infusion Time 61 Levofloxacin/Dextrose (Levaquin 500mg) 500 mg in 100 mls @ 100 mls/hr IVPB STAT STA PRN Reason: Protocol Stop: 01/04/18 19:33 Last Admin: 01/04/18 19:26 Dose: 100 mls/hr eMAR Start Stop Document 01/04/18 19:26 AB (Rec: 01/04/18 19:26 AB [id number]) Intravenous Solution Start Date 01/04/18 Start Time 19:26 End Date 01/04/18 End time 20:26 Total Infusion Time 60 Oseltamivir Phosphate (Tamiflu Cap) 75 mg PO ONCE STA PRN Reason: Protocol Stop: 01/04/18 16:51 Last Admin: 01/04/18 17:16 Dose: 75 mg Promethazine HCl/Codeine (Phenergan/Codeine Oral Syrup) 5 ml PO STAT STA Stop: 01/04/18 14:43 Last Admin: 01/04/18 14:56 Dose: 5 ml Disposition/Present on Arrival - Present on Arrival Any Indicators Present on Arrival: No History of DVT/PE: No History of Uncontrolled Diabetes: No Urinary Catheter: No History of Decub. Ulcer: No History Surgical Site Infection Following: None - Disposition Have Diagnosis and Disposition been Completed?: Yes Diagnosis: Pancytopenia, Pneumonia, Influenza Disposition: HOSPITALIZED Disposition Time: 18:30 Patient Plan: Admission Patient Problems: Current Active Problems Problem Status Onset Influenza Acute Pancytopenia Acute Pneumonia Acute Condition: FAIR Referrals: Ruben Michelle JD, MD [Primary Care Provider] - Follow up with primary Forms: [employer] (Amharic)
[2018-01-04] MEDS ORDERED: levoFLOXacin 500 mg in D5W 500 MG/100 ML BAG IVPB STA (18:34)
[2018-01-05] MEDS: Pantoprazole 40 mg EC Tab PO SCH (06:21)
[2018-01-05] MEDS ORDERED: Non Formulary Medication (Simvastatin [Simvastatin] 40 MG) PO SCH (10:00)
[2018-01-05] MEDS ORDERED: ENALAPRIL MALEATE 10 MG PO SCH (10:00)
[2018-01-05] MEDS ORDERED: Promethazine/Cod 6.25mg-10mg/5ml Syr UD PO STA (21:02)
[2018-01-05] MEDS: Albuterol-Ipratrop 3 mg / 0.5 (3 ml) UD IH SCH (21:20)
[2018-01-05] MEDS ORDERED: Vancomycin 1gm in NS 250ml 1 GM/250 ML BAG IVPB STA (22:41)
[2018-01-05] MEDS: MethylPREDNISolone 40 mg Vial IVP SCH (22:49)
[2018-01-05 22:56] LABS: IRON 19 ug/dL (45-180)
[2018-01-05 22:57] LABS: HDL CHOLESTEROL 35 mg/dL (29-60)
[2018-01-05 23:11] LABS: % IRON SATURATION 8 % (20-55); TOTAL IRON BINDING CAPACITY 248 ug/dL (261-462)
[2018-01-05 23:26] LABS: LDL CHOLESTEROL < 30 mg/dL (0-129)
[2018-01-05] MEDS ORDERED: Pneumococcal 23-Valent Vaccine IM ONE (23:56)
[2018-01-05] MEDS ORDERED: Influenza Vaccine 60 mcg/0.5 mL SYR (4YR UP) IM ONE (23:56)
--- NOTE | 2018-01-06 02:42 | CON ---
DATE: 01/04/2018 PULMONARY CONSULT REFERRING PHYSICIAN: Dr. Michelle/Dr. Nichols. REASON FOR CONSULT: COPD, cough and shortness of breath. HISTORY OF PRESENT ILLNESS: This is a 67-year gentleman with past medical history significant for myelodysplastic syndrome, chronic obstructive lung disease, been on chemotherapy, having cough, shortness of breath, low-grade fever. No nausea. No vomiting. No headache. No dysuria. No leg pain. No leg swelling. Admits to have snoring at nighttime. Received IV and inhaled bronchodilator with some benefit, persistent symptoms, had been admitted. PAST MEDICAL HISTORY: Hypertension, myelodysplastic syndrome, chronic obstructive lung disease, history of coronary artery disease with coronary stents, history of lipoma had been removed on the upper back. FAMILY HISTORY: No significant cardiopulmonary diseases are reported. SOCIAL HISTORY: He is active smoker. Denies any alcohol use. ALLERGIES: NONE KNOWN. MEDICATIONS: He is on Flomax 0.4 mg daily, Lipitor 40 mg daily, Norvasc 10 mg daily, Plavix 75 mg daily, Protonix 40 mg daily, Tylenol p.r.n., Zestril 10 mg daily. REVIEW OF SYSTEMS: No headache. Has rhinitis, cough, discolored sputum production, pleuritic-like pain. No nausea. No vomiting. No dysuria, leg pain or leg swelling. Admits to have snoring, daytime sleepy and tired. PHYSICAL EXAMINATION: GENERAL: Sitting up in a chair, T max 100.2, temperature 99, heart rate 80, respiratory rate is 18, blood pressure 114/65, pulse ox of 100% on nasal cannula. HEENT: Moist mucous membrane. Crowded airway. NECK: Supple. No JVD. No facial tenderness. LUNGS: Have bilateral diffuse expiratory wheezing with rhonchi. HEART: S1, S2. ABDOMEN: Soft, nontender. No organomegaly. EXTREMITIES: No edema. NEUROLOGIC: Awake, alert. Follows simple command. LABORATORY DATA: Shows hemoglobin 8.3, hematocrit 25.6, WBC 1.0, platelet count is 77. INR 1.45. PTT is 30. VBG showed pH 7.43, pCO2 of 37, O2 of 81. Sodium 141, potassium 3.9, chloride 106, bicarbonate is 24, BUN 22, creatinine is 1.0, glucose 103, calcium 8.6, AST 20, ALT 23, alk phos is 67, albumin is 3.9. Influenza A is positive for influenza B infection. Microbiology: Blood culture has been negative. IMPRESSION AND PLAN: Influenza B infection, trigger is chronic obstructive lung disease; history of coronary artery disease; also has a myelodysplastic syndrome. Agree with the present treatment. I spoke to Dr. Nichols. We will place on Tamiflu 75 mg twice a day, also add Solu-Medrol 20 mg q. 8 hours, inhaled bronchodilator. Placed on isolation. Gastric prophylaxis, deep venous thrombosis prophylaxis. Sequential compression device to lower extremity. We will place him on Nicoderm patch. Thank you and we will follow with you. Sindhu Paiz MD
[2018-01-06] MEDS: Albuterol-Ipratrop 3 mg / 0.5 (3 ml) UD IH SCH (03:15)
[2018-01-06] MEDS: Meropenem 1g/NS 100mL IVPB 1 GM/100 ML PIGGYBACK IVPB SCH ×4 (05:28→22:27)
[2018-01-06 08:30] LABS: HEMOGLOBIN 8.1 g/dL (14.0-18.0); MEAN CELL VOLUME 98.8 fl (80.0-105.0); MEAN CORPUSCULAR HGB CONC 32.4 g/dl (31.0-37.0); MEAN PLATELET VOLUME 11.2 fl (7.0-11.0); RBC 2.53 10^6/uL (3.5-6.1); RED CELL DISTRIBUTION WIDTH 17.3 % (11.5-14.5)
[2018-01-06 08:35] LABS: WHITE BLOOD COUNT 1.2 10^3/ul (4.5-11.0)
[2018-01-06 08:49] LABS: ALB/GLOB RATIO 1.7 (1.1-1.8); ALBUMIN 3.7 g/dL (3.0-4.8); ALT/SGPT 30 U/L (7-56); AST/SGOT 24 U/L (17-59); BLOOD UREA NITROGEN 22 mg/dL (7-21); CALCIUM 8.5 mg/dL (8.4-10.5); GFR AFRICAN-AMERICAN > 60; GFR NON-AFRICAN AMERICAN > 60
[2018-01-06] MEDS: Pantoprazole 40 mg EC Tab PO SCH (08:52)
--- NOTE | 2018-01-06 09:48 | HP ---
CHIEF COMPLAINT: Weakness, fever, coughing, shortness of breath. HISTORY OF PRESENT ILLNESS: Mr. Shashank Michelle is a 67-year-old male with history of myelodysplastic syndrome, on chemotherapy, was referred to ED by his primary care physician complaining of generalized weakness, fever, cough, shortness of breath with cough and decreased appetite for two days, he did not take any medication for these symptoms. Denies sick contacts, travel, chest pain or diaphoresis. No hematuria. No hematochezia. No pain. No dizziness. PAST MEDICAL HISTORY: Hypertension, anemia, coronary stents, had lipoma removed from the back, had big lipoma on the left shoulder. FAMILY HISTORY: Father and mother, noncontributory. HABITS: Smoking more than 10 cigarettes a day. Alcohol, no. Substance abuse, no. ALLERGIES: PATIENT IS NOT ALLERGIC TO ANY MEDICATIONS. HOME MEDICATIONS: Enalapril, simvastatin, omeprazole. REVIEW OF SYSTEMS: Patient seen and examined at bedside, looking comfortable, but still having fatigue, fever, coughing, shortness of breath, having sputum production. No chest pain. No palpitation. No hematuria. No hematochezia. No dysuria. PHYSICAL EXAMINATION VITAL SIGNS: Temperature 100.3, pulse 86, respiratory rate 18, blood pressure 129/60, pulse oximetry 96%. HEENT: Head: Normocephalic, atraumatic. Eyes: PERRLA. Extraocular muscles are intact. Conjunctivae clear. Nose patent. NECK: Supple. No carotid bruit. No JVD or thyromegaly. CHEST: Bilaterally symmetrical. HEART: S1, S2 positive. LUNGS: Clear to auscultation. ABDOMEN: Soft. Bowel sounds are present. No organomegaly. EXTREMITIES: No edema. No cyanosis. NEUROLOGIC: Patient is awake, alert, moving all four extremities. No focal deficit. LABORATORY DATA: White blood cell is 1.0, hemoglobin 8.3, hematocrit 25.6, platelets 77,000. Sodium 141, potassium 3.9, BUN 22, creatinine 1.2, glucose 103. ASSESSMENT AND PLAN: Mr. Shashank Michelle is a 67-year-old male with leukopenia, anemia, thrombocytopenia, pancytopenia, has increased BUN and looks like dehydrated, came in with influenza and has pneumonia. Patient has history of myelodysplastic syndrome, getting chemotherapy; history of hypertension; benign prostatic hypertrophy; coronary artery disease with cardiac stent x2 in 2013 and 2011; history of removal of lipoma from the back, now has big lipoma on the left shoulder; history of heavy smoking, urged to quit smoking. Chest x-ray done, has ill-defined haziness in the right lower lobe, may represent developing pneumonia or pulmonary edema, mild cardiomegaly and pulmonary venous congestion. I put consult with Dr. Lamb, Infectious Disease and Dr. Paiz, mold hoister; started on albuterol, doxycycline, Flomax. In emergency room, the patient got levofloxacin. Nicotine patch started by Dr. Paiz. Restart the Plavix. Small dose of Solu-Medrol, Tamiflu. Repeat labs. Gastrointestinal and deep venous thrombosis prophylaxis. Ria Nichols MD MTDD
[2018-01-06] MEDS: MethylPREDNISolone 40 mg Vial IVP SCH (10:53)
[2018-01-06 12:58] LABS: FOLATE 14.6 ng/mL
[2018-01-06] MEDS ORDERED: Albuterol-Ipratrop 3 mg / 0.5 (3 ml) UD IH PRN (20:44)
--- NOTE | 2018-01-06 22:07 | PN ---
DATE: 01/06/2018 PULMONARY PROGRESS NOTE REFERRING PHYSICIAN: Ria Nichols MD SUBJECTIVE: He is lying in the bed at a 45 degrees. Feels little better, still has rhinitis, cough, shortness of breath. No nausea, no diarrhea, leg pain, or leg swelling. OBJECTIVE: GENERAL: No acute distress. VITAL SIGNS: Temp 98, heart rate 83, respiratory rate is 20, blood pressure 112/60, pulse ox 97% on 3 liters nasal cannula. HEENT: Moist mucous membrane. Crowded airway. Mallampati score is 4. NECK: Supple. No JVD. LUNGS: Has prolonged expiratory phase with some wheezing. HEART: S1 and S2. ABDOMEN: Soft, nontender. No organomegaly. EXTREMITIES: There is no edema. NEUROLOGIC: Awake, alert, follows simple command. MEDICATIONS: He is on doxycycline 100 mg twice a day, Flomax 0.4 mg daily, Lipitor 40 mg daily, meropenem 1 g IV q.8h., Nicoderm patch daily, Norvasc 10 mg daily, Plavix 75 mg daily, Protonix 40 mg daily, Solu-Medrol 20 mg q.12h., Tylenol p.r.n., Zestril 10 mg daily. LABORATORY DATA: Shows hemoglobin 8.1, hematocrit 25.0, WBC 1.2, platelet count is 102. Sodium 140, potassium 4.2, chloride 106, bicarbonate 21, BUN 22, creatinine 1.1, glucose 153, calcium is 8.5, AST 24, ALT 30, alk phos is 53. Albumin is 3.7, procalcitonin 0.26. Influenza A serology is positive. Microbiology, blood cultures are negative. IMPRESSION AND PLAN: Influenza B infection triggered chronic obstructive lung disease, coronary artery disease, history of myelodysplastic syndrome, been on chemo. Pulmonary point of view, continue IV and inhaled bronchodilator. Continue antibiotics, Tamiflu, gastric prophylaxis, SCDs to lower extremity, Nicoderm patch. Thank you and we will follow with you. Sindhu Paiz MD
[2018-01-06] MEDS: guaiFENesin-DM 600-30 mg ER Tab PO SCH (22:29)
--- NOTE | 2018-01-07 01:01 | CON ---
DATE: 01/06/2018 LOCATION: Patient is seen in 576, bed 2. CHIEF COMPLAINT: Fever times several days. HISTORY OF PRESENT ILLNESS: This is a 67-year-old male with a history of myelodysplastic syndrome, has had chemotherapy, history of coronary artery disease, hypertension, BPH, smoking, anemia. Patient has had cardiac cath with stent placement in the past and inguinal hernia repair in the past, who is admitted on this admission with pneumonia and influenza. Patient is having some cough, mild shortness of breath, fevers, flu-like symptoms, seen in the emergency room. No abdominal pain, no diarrhea. No headaches or blurred vision. He is having weakness and fevers and the cough is productive, yellowish sputum. PAST MEDICAL HISTORY: Significant for myelodysplastic syndrome, has had chemotherapy, coronary artery disease, hypertension, BPH, smoker, anemia. PAST SURGICAL HISTORY: Significant for cardiac catheterization and stent placement. Patient has also had inguinal hernia repair. ALLERGIES: PATIENT HAS NO KNOWN ALLERGIES. MEDICATIONS AT HOME: Noted include amlodipine, Flomax, simvastatin, omeprazole, lisinopril, and enalapril. PHYSICAL EXAMINATION: GENERAL: On exam, patient is in bed, in no acute distress, nontoxic. VITAL SIGNS: Temperature of 100.3, T-max is 100.4; heart rate of 91; respiratory rate of 20; blood pressure is 114/60. HEENT: Examination of HEENT is unremarkable. NECK: Supple. LUNGS: Have decreased breath sounds. HEART: Normal S1, S2. ABDOMEN: Soft, nontender. LABORATORY DATA: Reveals a white count of 1.0 with an absolute granulocyte count of 780. Chemistries reveal a BUN of 22, creatinine of 1.2. Patient's influenza B is positive. Blood cultures are no growth. Chest x-ray shows an infiltrate, right lower lobe. ASSESSMENT AND PLAN: This is a 67-year-old male with myelodysplastic syndrome, status post chemotherapy, coronary artery disease, hypertension, benign prostatic hypertrophy, smoker with anemia; admitted with fever, tachycardia, leukopenia, neutropenia, influenza, infiltrate, hypoxia. 1. Severe sepsis in a neutropenic, febrile patient with right lower lobe healthcare associated possible gram-positive cocci, possible gram-negative heladio pneumonia in phase of positive influenza B. We will check on the final blood cultures, urine cultures, and sputum cultures. We will check on urine for Legionella antigen. We will also check on procalcitonin and treat the patient with vancomycin, meropenem, and Tamiflu. Patient is also on p.o. doxycycline and Solu-Medrol. We will make further recommendations upon availability of initial response and initial workup results. Benson Lamb MD
--- NOTE | 2018-01-07 01:34 | PN ---
DATE: SUBJECTIVE: The patient is 67-year-old male. The patient is seen and examined on the bedside, looking comfortable. Coughing is better, shortness of breath is better. No chest pain, no hematuria, no hematochezia, no fever, no chills, no headache, no dizziness. PHYSICAL EXAMINATION: VITAL SIGNS: Temperature 97.7, pulse 75, blood pressure 117/68, respiratory rate 20. HEENT: Head normocephalic, atraumatic. Eyes PERRLA. Extraocular muscles intact. Conjunctivae clear. Nose patent. NECK: Supple. No carotid bruit. No JVD or thyromegaly. CHEST: Bilaterally symmetrical. HEART: S1 and S2 positive. LUNGS: Clear to auscultation. ABDOMEN: Soft. Bowel sounds present. No organomegaly. EXTREMITIES: No edema. No cyanosis. NEUROLOGICAL: The patient is awake and alert. Moving all 4 extremities. No focal deficits. MEDICATIONS: Doxycycline, Flomax, Lipitor, meropenem, Nicoderm, Norvasc, Plavix, Protonix, Solu-Medrol tapering dose, Tamiflu, Tylenol, Zestril. LABORATORY DATA: White blood cells 1.2, on admission it was 1, hemoglobin 8.1, hematocrit 25.0, platelets 102. Sodium 140, potassium 4.2, BUN 22, creatinine 1.1, glucose of 153. ASSESSMENT AND PLAN: Mr. 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 Continue present treatment. Tamiflu is started by Dr. Paiz. Solu-Medrol tapering doses started. The patient is on isolation. Today I have discussion done with the Infectious Disease, Dr. Lamb. Placed on isolation. Gastric and deep venous thrombosis prophylaxes. Sequential compression devices to lower extremity. Dr. Paiz put him on Nicoderm patch. Patient's ocular care technician is Dr. Forbes. Put consult with Dr. Forbes for leukopenia. The patient is getting chemotherapy. Started doxycycline. Hypercholesterolemia, getting atorvastatin. Repeat labs. We will follow up. Ria Nichols MD
[2018-01-07] MEDS: Meropenem 1g/NS 100mL IVPB 1 GM/100 ML PIGGYBACK IVPB SCH ×3 (06:18→23:10)
[2018-01-07] MEDS: Pantoprazole 40 mg EC Tab PO SCH (06:18)
[2018-01-07 08:00] LABS: HEMOGLOBIN 8.6 g/dL (14.0-18.0); MEAN CELL VOLUME 99.3 fl (80.0-105.0); MEAN CORPUSCULAR HEMOGLOBIN 32.2 pg (25.0-35.0); MEAN CORPUSCULAR HGB CONC 32.5 g/dl (31.0-37.0); MEAN PLATELET VOLUME 10.5 fl (7.0-11.0); RBC 2.67 10^6/uL (3.5-6.1); RED CELL DISTRIBUTION WIDTH 17.5 % (11.5-14.5)
[2018-01-07 08:11] LABS: WHITE BLOOD COUNT 1.8 10^3/ul (4.5-11.0)
[2018-01-07] MEDS: MethylPREDNISolone 40 mg Vial IVP SCH ×3 (08:30→23:10)
[2018-01-07 08:40] LABS: BLOOD UREA NITROGEN 30 mg/dL (7-21); CALCIUM 8.9 mg/dL (8.4-10.5); GFR AFRICAN-AMERICAN > 60; GFR NON-AFRICAN AMERICAN > 60
--- NOTE | 2018-01-07 09:31 | CARD ---
APPROVED REPORT EKG Measurement Heart [id number] <Conclusion> Sinus rhythm with premature atrial complexes NSSTW changes
[2018-01-07] MEDS: guaiFENesin-DM 600-30 mg ER Tab PO SCH ×2 (10:36→17:45)
[2018-01-07 14:24] LABS: PH,URINE 5.5 (4.7-8.0); URINE BILIRUBIN NEGATIVE (NEGATIVE); URINE BLOOD SMALL (NEGATIVE); URINE GLUCOSE (UA) NEGATIVE (NEGATIVE); URINE LEUKOCYTE ESTERASE NEGATIVE Leu/uL (NEGATIVE); URINE NITRATE NEGATIVE (NEGATIVE); URINE PROTEIN 30 mg/dL (<30 mg/dL); URINE UROBILINOGEN 0.2 E.U./dL (<1 E.U./dL)
[2018-01-07 14:53] LABS: URINE COLOR YELLOW (YELLOW)
[2018-01-07 14:54] LABS: URINE APPEARANCE SL CLOUDY (CLEAR)
[2018-01-07 15:02] LABS: URINE BACTERIA NEG (NEG); URINE EPITHELIAL CELLS 0 - 2 /hpf (0-5); URINE RBC 0 - 2 /hpf (0-2); URINE WBC 0 - 2 /hpf (0-6)
--- NOTE | 2018-01-07 15:16 | CP.PCM.PN ---
Subjective - Date & Time of Evaluation Date of Evaluation: 01/07/18 Time of Evaluation: 12:50 - Subjective Subjective: Still with cough, no fevers overnight. Objective - Vital Signs/Intake and Output Vital Signs (last 24 hours): Temp Pulse Resp BP Pulse Ox 98.2 F 82 18 119/75 100 01/07/18 07:00 01/07/18 07:00 01/07/18 07:00 01/07/18 07:00 01/07/18 07:00 Intake and Output: 01/07/18 01/07/18 06:59 18:59 Intake Total 920 Balance 920 - Medications Medications: Current Medications Acetaminophen (Tylenol 325mg Tab) 650 mg PO Q6H PRN PRN Reason: Fever >100.4 F Last Admin: 01/05/18 12:15 Dose: 650 mg Albuterol/Ipratropium (Duoneb 3 Mg/0.5 Mg (3 Ml) Ud) 3 ml IH [id number] PRN PRN Reason: Shortness of Breath Last Admin: 01/06/18 21:38 Dose: 3 ml Amlodipine Besylate (Norvasc) 10 mg PO DAILY [facility] Last Admin: 01/06/18 10:53 Dose: 10 mg Atorvastatin Calcium (Lipitor) 40 mg PO DAILY [facility] Last Admin: 01/06/18 10:53 Dose: 40 mg Clopidogrel Bisulfate (Plavix) 75 mg PO DAILY [facility] Last Admin: 01/06/18 10:53 Dose: 75 mg Doxycycline Hyclate (Doryx) 100 mg PO Q12 [facility] PRN Reason: Protocol Last Admin: 01/06/18 22:28 Dose: 100 mg Guaifenesin/Dextromethorphan (Mucinex-Dm 600-30 Mg) 1 tab PO BID [facility] Last Admin: 01/06/18 22:29 Dose: 1 tab Meropenem/Sodium Chloride (Meropenem 1g/Ns 100ml Ivpb) 1 gm in 100 mls @ 100 mls/hr IVPB Q8 [facility] PRN Reason: Protocol Stop: 01/14/18 22:43 Last Admin: 01/07/18 06:18 Dose: 100 mls/hr Lisinopril (Zestril) 10 mg PO DAILY [facility] Last Admin: 01/06/18 10:53 Dose: 10 mg Methylprednisolone (Solu-Medrol) 20 mg IVP Q12 [facility] Last Admin: 01/07/18 08:30 Dose: 20 mg Nicotine (Nicoderm Cq) 1 patch TD DAILY [facility] Last Admin: 01/06/18 10:55 Dose: 1 patch Oseltamivir Phosphate (Tamiflu Cap) 75 mg PO BID [facility] PRN Reason: Protocol Stop: 01/10/18 17:03 Last Admin: 01/06/18 18:43 Dose: 75 mg Pantoprazole Sodium (Protonix Ec Tab) 40 mg PO 0600 [facility] Last Admin: 01/07/18 06:18 Dose: 40 mg Tamsulosin HCl (Flomax) 0.4 mg PO 1800 [facility] Last Admin: 01/06/18 18:43 Dose: 0.4 mg - Labs Labs: 01/07/18 07:30 01/07/18 07:30 PT 16.6 SECONDS (9.4-12.5) H 01/04/18 14:55 INR 1.45 (0.93-1.08) H 01/04/18 14:55 APTT 29.8 Seconds (25.1-36.5) 01/04/18 14:55 - Constitutional Appears: Chronically Ill - Head Exam Head Exam: NORMAL INSPECTION - Neck Exam Neck Exam: absent: Meningismus - Respiratory Exam Respiratory Exam: Decreased Breath Sounds - Cardiovascular Exam Cardiovascular Exam: +S1, +S2 - GI/Abdominal Exam GI & Abdominal Exam: Soft. absent: Tenderness Assessment and Plan - Assessment and Plan (Free Text) Plan: Assessment Severe sepsis due to right lower lobe pneumonia on top of Influenza B infection and febrile neutropenia S/P inguinal hernia repair myelodysplastic syndrome S/P chemotherapy COPD CAD S/P PCI HTN BPH Plan continue Merrem and Doxycycline day 2 and has been given a dose of IV vancomycin ; continue Tamiflu day 2 to complete 5 days follow up final culture results (blood cx negative x 2 days)
[2018-01-07] MEDS: Albuterol-Ipratrop 3 mg / 0.5 (3 ml) UD IH SCH (22:26)
[2018-01-07] MEDS: guaiFENesin-Codeine 100-10mg/5ml Syrup (5 ml) UD PO PRN (23:10)
--- NOTE | 2018-01-08 00:27 | PN ---
DATE: 01/07/2018 PULMONARY PROGRESS NOTE REFERRING PHYSICIAN: Ria Nichols MD. SUBJECTIVE: He is lying in the bed, head at 45 degrees. Still complaining of cough and sputum production. No hemoptysis. No hematemesis, no hematuria, no diarrhea. No leg pain or leg swelling. OBJECTIVE: GENERAL: In no acute distress. VITAL SIGNS: Temp is 98, heart rate is 82, respiratory rate is 18, blood pressure 120/73, pulse ox 100% on room air. HEENT: Moist mucous membrane. Crowded airway. Mallampati score is 4. NECK: Supple. No JVD. LUNGS: Has prolonged expiratory phase with wheezing. Scattered rhonchi. HEART: S1 and S2. ABDOMEN: Soft, nontender. No organomegaly. EXTREMITIES: There is no edema. NEUROLOGIC: Awake, alert, follows simple command. MEDICATIONS: He is on doxycycline 100 mg twice a day, DuoNeb q. 6 hour p.r.n., also on Flomax 0.4 mg daily, Lipitor 40 mg daily, getting meropenem 1 g IV q.8h., Mucinex DM one tab twice a day, Nicoderm patch daily, Norvasc 10 mg daily, Plavix 75 mg daily, Protonix 40 mg daily, with codeine 5 mL q. 4 hours p.r.n., Solu-Medrol 20 mg IV q.12 hour, Tamiflu 75 mg daily, Tylenol p.r.n., Zestril 10 mg daily. LABORATORY DATA: Shows hemoglobin 8.6, hematocrit 26.5, WBC 1.8, platelet count is 110. Sodium 142, potassium 4.9, chloride 109, bicarbonate 22, BUN 30, creatinine 1.7, glucose 112, calcium is 8.9, TSH is 0.2. Microbiology, blood cultures have been negative. IMPRESSION AND PLAN: Influenza B infection, triggering chronic obstructive lung disease, coronary artery disease, history of myelodysplastic syndrome, has been on chemotherapy. From a Pulmonary point of view, he is doing okay. Nebulizer treatment changed to q. 6 hours [id number]. Continue Tamiflu. Continue antibiotics covering gram-positives and gram-negatives. Aspiration precaution. Added a cough suppressant. Thank you and we will follow with you. Sindhu Paiz MD [facility] # [id number]
[2018-01-08] MEDS: Albuterol-Ipratrop 3 mg / 0.5 (3 ml) UD IH SCH ×4 (05:09→19:51)
[2018-01-08] MEDS: Pantoprazole 40 mg EC Tab PO SCH (06:07)
[2018-01-08] MEDS: Meropenem 1g/NS 100mL IVPB 1 GM/100 ML PIGGYBACK IVPB SCH ×3 (06:07→21:29)
[2018-01-08] MEDS: guaiFENesin-Codeine 100-10mg/5ml Syrup (5 ml) UD PO PRN (09:36)
[2018-01-08] MEDS: MethylPREDNISolone 40 mg Vial IVP SCH ×2 (09:36→21:30)
[2018-01-08] MEDS: guaiFENesin-DM 600-30 mg ER Tab PO SCH ×2 (09:37→18:26)
--- NOTE | 2018-01-08 10:30 | PN ---
DATE: 01/07/2018 SUBJECTIVE: The patient was seen and examined on 01/07/2018, seen in his room and looking comfortable. Still complaining of cough and sputum production, but getting better. Having chest pain with coughing. No hemoptysis. No hematochezia. No hematuria. No nausea, vomiting, diarrhea. No swelling of the legs. PHYSICAL EXAMINATION: VITAL SIGNS: Temperature 98, heart rate 82, respiratory rate 18 and blood pressure 120/73, pulse oximetry 100% on room air. HEENT: Head normocephalic, atraumatic. Eyes PERRLA. Extraocular muscles intact. Conjunctivae clear. Nose patent. Mucous membrane moist. NECK: Supple. No carotid bruit. No JVD or thyromegaly. CHEST: Bilaterally symmetrical. HEART: S1 and S2 positive. LUNGS: Clear to auscultation. ABDOMEN: Soft. Bowel sounds positive. No organomegaly. EXTREMITIES: No edema. No cyanosis. NEUROLOGICAL: The patient is awake and alert. Follows simple commands. LABORATORY DATA: Hemoglobin 8.6, hematocrit 26.5, white blood cells 1.8, platelets 110. Sodium 142, potassium 4.1, BUN 30, creatinine 1.7, TSH 0.2. MEDICATIONS: Doxycycline, DuoNeb, Flomax, Lipitor, Meropenem, Mucinex, Nicoderm patch, Plavix, Solu-Medrol tapering doses, Zestril. ASSESSMENT AND PLAN: Mr. Shashank Michelle, a 67-year-old male with multiple medical problem, influenza B infection, triggering chronic obstructive lung disease, coronary artery disease, history of myelodysplastic syndrome, getting chemotherapy from Dr. Forbes's group, pancytopenia, getting nebulizer treatment, changed to q. 6 hours [id number] as per Dr. Paiz. Continue Tamiflu. Antibiotics covering gram-positives and gram-negatives. Aspiration precautions. Dr. Paiz added cough suppressant. Out of bed, physical therapy. We will follow up. Ria Nichols MD
--- NOTE | 2018-01-08 18:04 | CON ---
DATE: HEMATOLOGY CONSULTATION HISTORY OF PRESENT ILLNESS: This is a 67-year-old man with myelodysplastic syndrome. The patient was seen by my associate, Dr. Good, in the office. He gets Vidaza, which is a daily shot for 5 days once a month and he has already received this for about 4 to 5 months. He now comes in for shortness of breath and he was found to have a flu and infection. PHYSICAL EXAMINATION: SKIN: No petechiae. No bruises. HEENT: Anicteric. NODES: Nonpalpable in axillary, cervical, supraclavicular, or inguinal regions. LUNGS: Clear at present. Patient is able to lie flat in bed. He states that he is feeling much better. HEART: S1 and S2. ABDOMEN: Shows no liver, no spleen, no tenderness. EXTREMITIES: No edema. CENTRAL NERVOUS SYSTEM: No focal findings. LABORATORY DATA: White count is 1.8, it has come up from 1, hemoglobin is 8.6, MCV of 99 and platelets ; however, his iron saturation is 8 to 10. home within the next day or two. He knows to follow up in the office and at that time, we will follow up on those irons and reevaluate. Pedro Forbes MD
--- NOTE | 2018-01-08 18:10 | CP.PCM.PN ---
Subjective - Date & Time of Evaluation Date of Evaluation: 01/08/18 Time of Evaluation: 12:40 - Subjective Subjective: Comfortable on a chair, no fevers. Objective - Vital Signs/Intake and Output Vital Signs (last 24 hours): Temp Pulse Resp BP Pulse Ox 98.2 F 72 18 111/66 93 L 01/08/18 07:49 01/08/18 07:49 01/08/18 07:49 01/08/18 07:49 01/08/18 07:49 Intake and Output: 01/08/18 01/08/18 06:59 18:59 Intake Total 900 Balance 900 - Medications Medications: Current Medications Acetaminophen (Tylenol 325mg Tab) 650 mg PO Q6H PRN PRN Reason: Fever >100.4 F Last Admin: 01/05/18 12:15 Dose: 650 mg Albuterol/Ipratropium (Duoneb 3 Mg/0.5 Mg (3 Ml) Ud) 3 ml IH [id number] PRN PRN Reason: Shortness of Breath Last Admin: 01/06/18 21:38 Dose: 3 ml Albuterol/Ipratropium (Duoneb 3 Mg/0.5 Mg (3 Ml) Ud) 3 ml IH [id number] [facility] Last Admin: 01/08/18 07:39 Dose: 3 ml Amlodipine Besylate (Norvasc) 10 mg PO DAILY [facility] Last Admin: 01/07/18 10:34 Dose: 10 mg Atorvastatin Calcium (Lipitor) 40 mg PO DAILY [facility] Last Admin: 01/07/18 10:33 Dose: 40 mg Clopidogrel Bisulfate (Plavix) 75 mg PO DAILY [facility] Last Admin: 01/07/18 10:34 Dose: 75 mg Doxycycline Hyclate (Doryx) 100 mg PO Q12 [facility] PRN Reason: Protocol Last Admin: 01/07/18 23:09 Dose: 100 mg Guaifenesin/Codeine Phosphate (Robitussin W/Codeine) 5 ml PO Q4H PRN PRN Reason: Cough and congestion Last Admin: 01/07/18 23:10 Dose: 5 ml Guaifenesin/Dextromethorphan (Mucinex-Dm 600-30 Mg) 1 tab PO BID [facility] Last Admin: 01/07/18 17:45 Dose: 1 tab Meropenem/Sodium Chloride (Meropenem 1g/Ns 100ml Ivpb) 1 gm in 100 mls @ 100 mls/hr IVPB Q8 [facility] PRN Reason: Protocol Stop: 01/14/18 22:43 Last Admin: 01/08/18 06:07 Dose: 100 mls/hr Lisinopril (Zestril) 10 mg PO DAILY [facility] Last Admin: 01/07/18 10:33 Dose: 10 mg Methylprednisolone (Solu-Medrol) 20 mg IVP Q12 [facility] Last Admin: 01/07/18 23:10 Dose: 20 mg Nicotine (Nicoderm Cq) 1 patch TD DAILY [facility] Last Admin: 01/07/18 10:31 Dose: 1 patch Oseltamivir Phosphate (Tamiflu Cap) 75 mg PO BID [facility] PRN Reason: Protocol Stop: 01/10/18 17:03 Last Admin: 01/07/18 17:44 Dose: 75 mg Pantoprazole Sodium (Protonix Ec Tab) 40 mg PO 0600 [facility] Last Admin: 01/08/18 06:07 Dose: 40 mg Tamsulosin HCl (Flomax) 0.4 mg PO 1800 [facility] Last Admin: 01/07/18 19:17 Dose: 0.4 mg - Labs Labs: 01/07/18 07:30 01/07/18 07:30 PT 16.6 SECONDS (9.4-12.5) H 01/04/18 14:55 INR 1.45 (0.93-1.08) H 01/04/18 14:55 APTT 29.8 Seconds (25.1-36.5) 01/04/18 14:55 - Constitutional Appears: Non-toxic - Head Exam Head Exam: NORMAL INSPECTION - ENT Exam ENT Exam: Mucous Membranes Moist - Neck Exam Neck Exam: absent: Meningismus - Respiratory Exam Respiratory Exam: Decreased Breath Sounds - Cardiovascular Exam Cardiovascular Exam: +S1, +S2 - GI/Abdominal Exam GI & Abdominal Exam: Soft. absent: Tenderness Assessment and Plan - Assessment and Plan (Free Text) Plan: Assessment Severe sepsis due to right lower lobe pneumonia on top of Influenza B infection and febrile neutropenia S/P inguinal hernia repair myelodysplastic syndrome S/P chemotherapy COPD CAD S/P PCI HTN BPH Plan continue Merrem and Doxycycline day 3 and has been given a dose of IV vancomycin ; continue Tamiflu day 3 to complete 5 days blood cx negative x 2 days
[2018-01-09] MEDS: Albuterol-Ipratrop 3 mg / 0.5 (3 ml) UD IH SCH ×4 (01:16→20:00)
--- NOTE | 2018-01-09 01:28 | PN ---
DATE: PULMONARY PROGRESS NOTE REFERRING PHYSICIAN: Ria Nichols MD SUBJECTIVE: He is lying in the bed, head at 45 degrees, feels a little better today, decreased cough. No nausea. No vomiting or diarrhea. No leg pain or leg swelling. OBJECTIVE: GENERAL: In no acute distress. VITAL SIGNS: Temperature is 98, heart rate 72, respiratory rate is 18, blood pressure 112/66, pulse ox 93% on 2 liters nasal cannula. HEENT: Moist mucous membrane. Crowded airway. Mallampati score is 4. NECK: Supple. No JVD. LUNGS: Has a prolonged expiratory phase, with some wheezing. HEART: S1 and S2. ABDOMEN: Soft and nontender. No organomegaly. EXTREMITIES: There is no edema. NEUROLOGIC: Awake and alert, follows simple commands. MEDICATIONS: He is on doxycycline 100 mg twice a day, DuoNeb q. 6 hours p.r.n., Flomax 0.4 mg daily, Lipitor 40 mg daily, meropenem 1 g IV q. 8 hours, Mucinex DM 600/30 one tab twice a day, Nicoderm patch daily, Norvasc 10 mg daily, Plavix 75 mg daily, daily, Robitussin with codeine 5 mL at bedtime p.r.n., Solu-Medrol 20 mg q. 12 hours, Tamiflu 75 mg twice a day, Tylenol p.r.n., and Zestril 10 mg daily. LABORATORY DATA: Shows hemoglobin 8.6, hematocrit 26.5, WBC 1.8, platelets 110. Microbiology; blood cultures and sputum cultures, there is no growth. IMPRESSION AND PLAN: Influenza B infection, triggering chronic obstructive lung disease, coronary artery disease, history of myelodysplastic syndrome, seen by Hematology and Oncology today. Pulmonary point of view, continue Tamiflu, continue antibiotics, Solu-Medrol, cough suppressant. Gastric and deep venous thrombosis prophylaxis. Out of bed to chair. Thank you and we will follow with you. Sindhu Paiz MD
--- NOTE | 2018-01-09 02:31 | PN ---
DATE: SUBJECTIVE: Patient is a 67-year-old male. Patient is seen and examined on the bedside, looking comfortable. No nausea, vomiting, or diarrhea. No hematuria or hematochezia. Cough is better. Shortness of breath is better. No chest pain. No headache. No dizziness. PHYSICAL EXAMINATION: VITAL SIGNS: Temperature 98.2, pulse 72, respiratory rate 18, blood pressure 111/66, pulse oximetry 93. HEENT: Head: Normocephalic, atraumatic. Eyes: PERRLA. Extraocular muscles are intact. Conjunctivae clear. Nose patent. Mucous membranes moist. NECK: Supple. No carotid bruit, JVD, or thyromegaly. CHEST: Bilaterally symmetrical. HEART: S1 and S2 positive. LUNGS: Clear to auscultation. ABDOMEN: Soft. Bowel sounds positive. No organomegaly. EXTREMITIES: No edema. No cyanosis. NEUROLOGIC: Patient is awake, alert. Moving all 4 extremities. No focal deficit. MEDICATIONS: Tylenol, DuoNeb, amlodipine, atorvastatin, Plavix, doxycycline, Robitussin, Mucinex, meropenem, Zestril, Solu-Medrol, Nicoderm, Tamiflu, and Protonix. LABORATORY DATA: White blood cells 1.8, hemoglobin 8.6, hematocrit 26.5, platelets 110. Sodium 142, potassium 4.9, BUN 30, creatinine 1.0, glucose 112. ASSESSMENT AND PLAN: Mr. Shashank Michelle is a 67-year-old male with leukopenia, anemia, thrombocytopenia - practically pancytopenia, hyperglycemia, coronary artery disease, severe sepsis due to right lower lobe pneumonia on top of influenza B infection, febrile neutropenia, status post inguinal hernia repair, myelodysplastic syndrome, status post chemotherapy, chronic obstructive pulmonary disease, hypertension, benign prostatic hypertrophy. Continue meropenem, doxycycline day 3, and has been given a dose of vancomycin. Continue Tamiflu, day 3, to complete the 5 days. Blood cultures negative for 2 days. Appreciated Infectious Disease input. Seen by Dr. Forbes, patient's oncologist/fishing manager, also. Patient was seen by Dr. Good as a private patient. He gets Vidaza, which is a daily shot for 5 days once a month, and he has already received this for about 4 to 5 months. He now comes in for shortness of breath and was found to have flu and pneumonia. We will continue present treatment. Repeat labs. We will follow up. Ria Nichols MD
[2018-01-09] MEDS: Pantoprazole 40 mg EC Tab PO SCH (05:52)
[2018-01-09] MEDS: Meropenem 1g/NS 100mL IVPB 1 GM/100 ML PIGGYBACK IVPB SCH ×3 (05:52→22:27)
[2018-01-09] MEDS: guaiFENesin-DM 600-30 mg ER Tab PO SCH ×2 (09:48→18:21)
[2018-01-09] MEDS: MethylPREDNISolone 40 mg Vial IVP SCH (09:50)
--- NOTE | 2018-01-09 12:45 | CP.PCM.PN ---
Subjective - Date & Time of Evaluation Date of Evaluation: 01/09/18 Time of Evaluation: 12:20 - Subjective Subjective: Comfortable, no fevers. Objective - Vital Signs/Intake and Output Vital Signs (last 24 hours): Temp Pulse Resp BP Pulse Ox 97.6 F 76 18 108/62 92 L 01/08/18 16:00 01/08/18 16:00 01/08/18 16:00 01/08/18 16:00 01/08/18 16:00 Intake and Output: 01/09/18 01/09/18 06:59 18:59 Intake Total 1320 Balance 1320 - Medications Medications: Current Medications Acetaminophen (Tylenol 325mg Tab) 650 mg PO Q6H PRN PRN Reason: Fever >100.4 F Last Admin: 01/05/18 12:15 Dose: 650 mg Albuterol/Ipratropium (Duoneb 3 Mg/0.5 Mg (3 Ml) Ud) 3 ml IH [id number] PRN PRN Reason: Shortness of Breath Last Admin: 01/06/18 21:38 Dose: 3 ml Albuterol/Ipratropium (Duoneb 3 Mg/0.5 Mg (3 Ml) Ud) 3 ml IH [id number] [facility] Last Admin: 01/09/18 07:40 Dose: 3 ml Amlodipine Besylate (Norvasc) 10 mg PO DAILY [facility] Last Admin: 01/08/18 09:38 Dose: 10 mg Atorvastatin Calcium (Lipitor) 40 mg PO DAILY [facility] Last Admin: 01/08/18 09:37 Dose: 40 mg Clopidogrel Bisulfate (Plavix) 75 mg PO DAILY [facility] Last Admin: 01/08/18 09:37 Dose: 75 mg Doxycycline Hyclate (Doryx) 100 mg PO Q12 [facility] PRN Reason: Protocol Last Admin: 01/08/18 21:28 Dose: 100 mg Guaifenesin/Codeine Phosphate (Robitussin W/Codeine) 5 ml PO Q4H PRN PRN Reason: Cough and congestion Last Admin: 01/08/18 09:36 Dose: 5 ml Guaifenesin/Dextromethorphan (Mucinex-Dm 600-30 Mg) 1 tab PO BID [facility] Last Admin: 01/08/18 18:26 Dose: 1 tab Meropenem/Sodium Chloride (Meropenem 1g/Ns 100ml Ivpb) 1 gm in 100 mls @ 100 mls/hr IVPB Q8 [facility] PRN Reason: Protocol Stop: 01/14/18 22:43 Last Admin: 01/09/18 05:52 Dose: 100 mls/hr Lisinopril (Zestril) 10 mg PO DAILY [facility] Last Admin: 01/08/18 09:38 Dose: 10 mg Methylprednisolone (Solu-Medrol) 20 mg IVP Q12 [facility] Last Admin: 01/08/18 21:30 Dose: 20 mg Nicotine (Nicoderm Cq) 1 patch TD DAILY [facility] Last Admin: 01/08/18 09:34 Dose: 1 patch Oseltamivir Phosphate (Tamiflu Cap) 75 mg PO BID [facility] PRN Reason: Protocol Stop: 01/10/18 17:03 Last Admin: 01/08/18 18:27 Dose: 75 mg Pantoprazole Sodium (Protonix Ec Tab) 40 mg PO 0600 [facility] Last Admin: 01/09/18 05:52 Dose: 40 mg Tamsulosin HCl (Flomax) 0.4 mg PO 1800 [facility] Last Admin: 01/08/18 18:26 Dose: 0.4 mg - Labs Labs: 01/07/18 07:30 01/07/18 07:30 PT 16.6 SECONDS (9.4-12.5) H 01/04/18 14:55 INR 1.45 (0.93-1.08) H 01/04/18 14:55 APTT 29.8 Seconds (25.1-36.5) 01/04/18 14:55 - Constitutional Appears: Chronically Ill - Head Exam Head Exam: NORMAL INSPECTION - Respiratory Exam Respiratory Exam: Decreased Breath Sounds - Cardiovascular Exam Cardiovascular Exam: +S1, +S2 - GI/Abdominal Exam GI & Abdominal Exam: Soft. absent: Tenderness Assessment and Plan - Assessment and Plan (Free Text) Plan: Assessment Severe sepsis due to right lower lobe pneumonia on top of Influenza B infection and S/P febrile neutropenia S/P inguinal hernia repair myelodysplastic syndrome S/P chemotherapy COPD CAD S/P PCI HTN BPH Plan continue Merrem and Doxycycline day 4 (to complete 4-7 days) and has been given a dose of IV vancomycin; continue Tamiflu day 4 to complete 5 days blood cx negative continue to monitor neutrophil and WBC counts
--- NOTE | 2018-01-09 16:25 | PN ---
DATE: 01/09/2018 PULMONARY PROGRESS NOTE REFERRING PHYSICIAN: Ria Nichols MD. SUBJECTIVE: He is lying in the bed, head at 45 degrees. Feels better. Decreased cough. Decreased shortness of breath. No nausea. No vomiting, diarrhea, leg pain, leg swelling. OBJECTIVE: GENERAL: In no acute distress. VITAL SIGNS: Temp is 98, heart rate is 64, respiratory rate is 18, blood pressure 112/66, pulse ox 95% on nasal cannula. HEENT: Moist mucous membrane. Crowded airway. Mallampati score is 4. NECK: Supple. No JVD. LUNGS: Have a fair airflow with few scattered rhonchi. HEART: S1 and S2. ABDOMEN: Soft and nontender. No organomegaly. EXTREMITIES: No edema. NEUROLOGICAL: Awake and alert. Follows simple command. LABORATORY DATA: Reviewed and noted. No new changes in laboratory data reported since yesterday. Microbiology: Blood culture reviewed and culture is unremarkable. Sputum culture has normal haydee. MEDICATIONS: He is on doxycycline 100 mg twice a day, albuterol/Atrovent nebulizer q. 6 hours [id number], Flomax 0.4 mg daily, Lipitor 40 mg daily, meropenem 1 g IV q. 8 hours, Mucinex DM one tab twice a day, Nicoderm patch daily, Norvasc 10 mg daily, Plavix 75 mg daily, Protonix 40 mg daily, Robitussin with codeine 5 mL q. 4 hours p.r.n., Solu-Medrol 20 mg q. 12 hours, Tamiflu 75 mg twice a day, Tylenol p.r.n., Zestril 10 mg daily. IMPRESSION AND PLAN: Influenza B infection, triggered chronic obstructive lung disease, coronary artery disease, history of myelodysplastic syndrome. He is being followed by Hematology and Oncology. Pulmonary point of view, doing okay. Discontinue Solu-Medrol. Placed on prednisone 20 mg daily. Continue antibiotics. Gastric prophylaxis, deep venous thrombosis prophylaxis. Thank you and we will follow with you. Sindhu Paiz MD
--- NOTE | 2018-01-09 17:56 | CP.PCM.PN ---
<Meme Santana - Last Filed: 01/09/18 17:53> Subjective - Date & Time of Evaluation Date of Evaluation: 01/09/18 Time of Evaluation: 10:45 - Subjective Subjective: Chief complaint: Weakness 67 yr male w/ history of myelodysplastic syndrome (on chemotherapy), HTN, anemia, BPH, CADx2 (2013 & 2011), lipoma removal of L shoulder, and everyday smoker. Today, pt seen at bedside. Patient denies any shortness of breath, chest pain, headache, fever, chills, diarrhea, constipation , paraesthesias, or urinary changes. Objective - Vital Signs/Intake and Output Vital Signs (last 24 hours): Temp Pulse Resp BP Pulse Ox 97.8 F 64 18 112/66 95 01/09/18 07:00 01/09/18 09:48 01/09/18 07:00 01/09/18 09:53 01/09/18 07:00 Intake and Output: 01/09/18 01/09/18 06:59 18:59 Intake Total 1320 100 Output Total 450 Balance 1320 -350 - Medications Medications: Current Medications Acetaminophen (Tylenol 325mg Tab) 650 mg PO Q6H PRN PRN Reason: Fever >100.4 F Last Admin: 01/05/18 12:15 Dose: 650 mg Albuterol/Ipratropium (Duoneb 3 Mg/0.5 Mg (3 Ml) Ud) 3 ml IH [id number] PRN PRN Reason: Shortness of Breath Last Admin: 01/06/18 21:38 Dose: 3 ml Albuterol/Ipratropium (Duoneb 3 Mg/0.5 Mg (3 Ml) Ud) 3 ml IH [id number] [facility] Last Admin: 01/09/18 13:28 Dose: 3 ml Amlodipine Besylate (Norvasc) 10 mg PO DAILY [facility] Last Admin: 01/09/18 09:53 Dose: 10 mg Atorvastatin Calcium (Lipitor) 40 mg PO DAILY [facility] Last Admin: 01/09/18 09:50 Dose: 40 mg Clopidogrel Bisulfate (Plavix) 75 mg PO DAILY [facility] Last Admin: 01/09/18 09:49 Dose: 75 mg Doxycycline Hyclate (Doryx) 100 mg PO Q12 [facility] PRN Reason: Protocol Last Admin: 01/09/18 09:48 Dose: 100 mg Guaifenesin/Codeine Phosphate (Robitussin W/Codeine) 5 ml PO Q4H PRN PRN Reason: Cough and congestion Last Admin: 01/08/18 09:36 Dose: 5 ml Guaifenesin/Dextromethorphan (Mucinex-Dm 600-30 Mg) 1 tab PO BID [facility] Last Admin: 01/09/18 09:48 Dose: 1 tab Meropenem/Sodium Chloride (Meropenem 1g/Ns 100ml Ivpb) 1 gm in 100 mls @ 100 mls/hr IVPB Q8 [facility] PRN Reason: Protocol Stop: 01/14/18 22:43 Last Admin: 01/09/18 15:38 Dose: 100 mls/hr Lisinopril (Zestril) 10 mg PO DAILY [facility] Last Admin: 01/09/18 09:48 Dose: 10 mg Nicotine (Nicoderm Cq) 1 patch TD DAILY [facility] Last Admin: 01/09/18 09:50 Dose: 1 patch Oseltamivir Phosphate (Tamiflu Cap) 75 mg PO BID [facility] PRN Reason: Protocol Stop: 01/10/18 17:03 Last Admin: 01/09/18 09:49 Dose: 75 mg Pantoprazole Sodium (Protonix Ec Tab) 40 mg PO 0600 [facility] Last Admin: 01/09/18 05:52 Dose: 40 mg Prednisone (Prednisone Tab) 20 mg PO DAILY [facility] Tamsulosin HCl (Flomax) 0.4 mg PO 1800 [facility] Last Admin: 01/08/18 18:26 Dose: 0.4 mg - Labs Labs: 01/07/18 07:30 01/07/18 07:30 PT 16.6 SECONDS (9.4-12.5) H 01/04/18 14:55 INR 1.45 (0.93-1.08) H 01/04/18 14:55 APTT 29.8 Seconds (25.1-36.5) 01/04/18 14:55 - Constitutional Appears: Well - Head Exam Head Exam: ATRAUMATIC, NORMAL INSPECTION, NORMOCEPHALIC - Eye Exam Eye Exam: EOMI, Normal appearance, PERRL Pupil Exam: NORMAL ACCOMODATION, PERRL - ENT Exam ENT Exam: Mucous Membranes Moist, Normal Exam - Neck Exam Neck Exam: Full ROM, Normal Inspection. absent: Lymphadenopathy - Respiratory Exam Respiratory Exam: Clear to Ausculation Bilateral, NORMAL BREATHING PATTERN - Cardiovascular Exam Cardiovascular Exam: REGULAR RHYTHM, +S1, +S2. absent: Murmur - GI/Abdominal Exam GI & Abdominal Exam: Soft, Normal Bowel Sounds. absent: Tenderness - Extremities Exam Extremities Exam: Full ROM, Normal Capillary Refill, Normal Inspection. absent : Joint Swelling, Pedal Edema - Back Exam Back Exam: NORMAL INSPECTION - Neurological Exam Neurological Exam: Alert, Awake, CN II-XII Intact, Normal Gait, Oriented x3 - Psychiatric Exam Psychiatric exam: Normal Affect, Normal Mood - Skin Skin Exam: Dry, Intact, Normal Color, Warm Assessment and Plan (1) Iron deficiency anemia Status: Acute (2) Dehydration Status: Acute (3) Hyperglycemia Status: Acute (4) Hyperthyroidism Status: Acute (5) Hematuria Status: Acute (6) Proteinuria Status: Acute (7) Influenza Status: Acute (8) Pancytopenia Status: Acute (9) Pneumonia Status: Acute - Assessment and Plan (Free Text) Plan: Isolation precautions. IV meropenem. PO doxcycline & tamiflu. Nicotine patch. PO prednisone. IV venofer. GI/VTE prophlyaxis. Continue PT/OT. Consults: Pulmo - Dr. Paiz Neuro - [facility] - Dr. Forbes ID - Dr. Lamb Reviewed: CXR = ill defined haziness in R lober lobe, pneumonia vs. pulmonary edema, persistent mild cardiomegaly & pulmonary venous congestion ECG = SR w PAC, NSSTW changes <Ria Nichols - Last Filed: 01/10/18 09:47> Objective - Vital Signs/Intake and Output Vital Signs (last 24 hours): Temp Pulse Resp BP Pulse Ox 97.0 F L 77 20 128/88 99 01/10/18 06:00 01/10/18 06:00 01/10/18 06:00 01/10/18 06:00 01/10/18 06:00 Intake and Output: 01/10/18 01/10/18 06:59 18:59 Intake Total 660 Output Total 600 Balance 60 - Medications Medications: Current Medications Acetaminophen (Tylenol 325mg Tab) 650 mg PO Q6H PRN PRN Reason: Fever >100.4 F Last Admin: 01/05/18 12:15 Dose: 650 mg Albuterol/Ipratropium (Duoneb 3 Mg/0.5 Mg (3 Ml) Ud) 3 ml IH [id number] PRN PRN Reason: Shortness of Breath Last Admin: 01/06/18 21:38 Dose: 3 ml Albuterol/Ipratropium (Duoneb 3 Mg/0.5 Mg (3 Ml) Ud) 3 ml IH [id number] [facility] Last Admin: 01/10/18 07:34 Dose: 3 ml Amlodipine Besylate (Norvasc) 10 mg PO DAILY [facility] Last Admin: 01/09/18 09:53 Dose: 10 mg Atorvastatin Calcium (Lipitor) 40 mg PO DAILY [facility] Last Admin: 01/09/18 09:50 Dose: 40 mg Clopidogrel Bisulfate (Plavix) 75 mg PO DAILY [facility] Last Admin: 01/09/18 09:49 Dose: 75 mg Doxycycline Hyclate (Doryx) 100 mg PO Q12 [facility] PRN Reason: Protocol Last Admin: 01/09/18 22:27 Dose: 100 mg Guaifenesin/Codeine Phosphate (Robitussin W/Codeine) 5 ml PO Q4H PRN PRN Reason: Cough and congestion Last Admin: 01/09/18 23:49 Dose: 5 ml Guaifenesin/Dextromethorphan (Mucinex-Dm 600-30 Mg) 1 tab PO BID [facility] Last Admin: 01/09/18 18:21 Dose: 1 tab Meropenem/Sodium Chloride (Meropenem 1g/Ns 100ml Ivpb) 1 gm in 100 mls @ 100 mls/hr IVPB Q8 [facility] PRN Reason: Protocol Stop: 01/14/18 22:43 Last Admin: 01/10/18 06:17 Dose: 100 mls/hr Lisinopril (Zestril) 10 mg PO DAILY [facility] Last Admin: 01/09/18 09:48 Dose: 10 mg Nicotine (Nicoderm Cq) 1 patch TD DAILY [facility] Last Admin: 01/09/18 09:50 Dose: 1 patch Oseltamivir Phosphate (Tamiflu Cap) 75 mg PO BID [facility] PRN Reason: Protocol Stop: 01/10/18 17:03 Last Admin: 01/09/18 18:21 Dose: 75 mg Pantoprazole Sodium (Protonix Ec Tab) 40 mg PO 0600 [facility] Last Admin: 01/10/18 06:17 Dose: 40 mg Prednisone (Prednisone Tab) 20 mg PO DAILY [facility] Tamsulosin HCl (Flomax) 0.4 mg PO 1800 [facility] Last Admin: 01/09/18 18:21 Dose: 0.4 mg - Labs Labs: 01/07/18 07:30 01/07/18 07:30 PT 16.6 SECONDS (9.4-12.5) H 01/04/18 14:55 INR 1.45 (0.93-1.08) H 01/04/18 14:55 APTT 29.8 Seconds (25.1-36.5) 01/04/18 14:55 Assessment and Plan - Assessment and Plan (Free Text) Plan: 67 yr male w/ history of myelodysplastic syndrome (on chemotherapy), HTN, anemia, BPH, CADx2 (2013 & 2011), lipoma removal of L shoulder, and everyday smoker. Today, pt seen at bedside. Patient denies any shortness of breath, chest pain, headache, fever, chills, diarrhea, constipation , paraesthesias, or urinary changes. pt is seen and examined at bed side , looking comfortable , agreed all above , d/d with project management engineer and staff chart .meds and labs noted , will f/u
[2018-01-09] MEDS: guaiFENesin-Codeine 100-10mg/5ml Syrup (5 ml) UD PO PRN (23:49)
[2018-01-10] MEDS: Albuterol-Ipratrop 3 mg / 0.5 (3 ml) UD IH SCH ×4 (01:24→20:27)
[2018-01-10 04:19] VITALS: RESP 20
[2018-01-10] MEDS: Meropenem 1g/NS 100mL IVPB 1 GM/100 ML PIGGYBACK IVPB SCH ×3 (06:17→21:58)
[2018-01-10] MEDS: Pantoprazole 40 mg EC Tab PO SCH (06:17)
[2018-01-10] MEDS: guaiFENesin-DM 600-30 mg ER Tab PO SCH ×2 (09:56→17:09)
[2018-01-10 10:06] LABS: EOS % 0.8 % (1.5-5.0); GRAN # 0.74 (1.4-6.5); GRAN % 59.7 % (50.0-68.0); LYMPH # 0.5 (1.2-3.4); LYMPH % 37.9 % (22.0-35.0); MEAN CELL VOLUME 100.8 fl (80.0-105.0); MEAN CORPUSCULAR HEMOGLOBIN 31.7 pg (25.0-35.0); MEAN CORPUSCULAR HGB CONC 31.5 g/dl (31.0-37.0); MEAN PLATELET VOLUME 9.8 fl (7.0-11.0); MONO % 1.6 % (1.0-6.0); RBC 2.52 10^6/uL (3.5-6.1); RED CELL DISTRIBUTION WIDTH 17.7 % (11.5-14.5)
[2018-01-10 10:09] LABS: WHITE BLOOD COUNT 1.2 10^3/ul (4.5-11.0)
[2018-01-10 10:22] LABS: ALB/GLOB RATIO 1.6 (1.1-1.8); ALBUMIN 3.5 g/dL (3.0-4.8); ALT/SGPT 58 U/L (7-56); AST/SGOT 31 U/L (17-59); BLOOD UREA NITROGEN 22 mg/dL (7-21); GFR AFRICAN-AMERICAN > 60; GFR NON-AFRICAN AMERICAN > 60
--- NOTE | 2018-01-10 11:44 | CP.PCM.PN ---
Subjective - Date & Time of Evaluation Date of Evaluation: 01/10/18 Time of Evaluation: 08:20 - Subjective Subjective: No fevers, not in distress. Objective - Vital Signs/Intake and Output Vital Signs (last 24 hours): Temp Pulse Resp BP Pulse Ox 97.0 F L 77 20 128/88 99 01/10/18 06:00 01/10/18 06:00 01/10/18 06:00 01/10/18 06:00 01/10/18 06:00 Intake and Output: 01/10/18 01/10/18 06:59 18:59 Intake Total 660 Output Total 600 Balance 60 - Medications Medications: Current Medications Acetaminophen (Tylenol 325mg Tab) 650 mg PO Q6H PRN PRN Reason: Fever >100.4 F Last Admin: 01/05/18 12:15 Dose: 650 mg Albuterol/Ipratropium (Duoneb 3 Mg/0.5 Mg (3 Ml) Ud) 3 ml IH [id number] PRN PRN Reason: Shortness of Breath Last Admin: 01/06/18 21:38 Dose: 3 ml Albuterol/Ipratropium (Duoneb 3 Mg/0.5 Mg (3 Ml) Ud) 3 ml IH [id number] [facility] Last Admin: 01/10/18 07:34 Dose: 3 ml Amlodipine Besylate (Norvasc) 10 mg PO DAILY [facility] Last Admin: 01/09/18 09:53 Dose: 10 mg Atorvastatin Calcium (Lipitor) 40 mg PO DAILY [facility] Last Admin: 01/09/18 09:50 Dose: 40 mg Clopidogrel Bisulfate (Plavix) 75 mg PO DAILY [facility] Last Admin: 01/09/18 09:49 Dose: 75 mg Doxycycline Hyclate (Doryx) 100 mg PO Q12 [facility] PRN Reason: Protocol Last Admin: 01/09/18 22:27 Dose: 100 mg Guaifenesin/Codeine Phosphate (Robitussin W/Codeine) 5 ml PO Q4H PRN PRN Reason: Cough and congestion Last Admin: 01/09/18 23:49 Dose: 5 ml Guaifenesin/Dextromethorphan (Mucinex-Dm 600-30 Mg) 1 tab PO BID [facility] Last Admin: 01/09/18 18:21 Dose: 1 tab Meropenem/Sodium Chloride (Meropenem 1g/Ns 100ml Ivpb) 1 gm in 100 mls @ 100 mls/hr IVPB Q8 [facility] PRN Reason: Protocol Stop: 01/14/18 22:43 Last Admin: 01/10/18 06:17 Dose: 100 mls/hr Lisinopril (Zestril) 10 mg PO DAILY [facility] Last Admin: 01/09/18 09:48 Dose: 10 mg Nicotine (Nicoderm Cq) 1 patch TD DAILY [facility] Last Admin: 01/09/18 09:50 Dose: 1 patch Oseltamivir Phosphate (Tamiflu Cap) 75 mg PO BID [facility] PRN Reason: Protocol Stop: 01/10/18 17:03 Last Admin: 01/09/18 18:21 Dose: 75 mg Pantoprazole Sodium (Protonix Ec Tab) 40 mg PO 0600 [facility] Last Admin: 01/10/18 06:17 Dose: 40 mg Prednisone (Prednisone Tab) 20 mg PO DAILY [facility] Tamsulosin HCl (Flomax) 0.4 mg PO 1800 [facility] Last Admin: 01/09/18 18:21 Dose: 0.4 mg - Labs Labs: 01/07/18 07:30 01/07/18 07:30 PT 16.6 SECONDS (9.4-12.5) H 01/04/18 14:55 INR 1.45 (0.93-1.08) H 01/04/18 14:55 APTT 29.8 Seconds (25.1-36.5) 01/04/18 14:55 - Constitutional Appears: Chronically Ill - Head Exam Head Exam: NORMAL INSPECTION - ENT Exam ENT Exam: Mucous Membranes Moist - Neck Exam Neck Exam: absent: Meningismus - Respiratory Exam Respiratory Exam: Decreased Breath Sounds. absent: Rales - Cardiovascular Exam Cardiovascular Exam: +S1, +S2 - GI/Abdominal Exam GI & Abdominal Exam: Soft. absent: Tenderness Assessment and Plan - Assessment and Plan (Free Text) Plan: Assessment Severe sepsis due to right lower lobe pneumonia on top of Influenza B infection and S/P febrile neutropenia S/P inguinal hernia repair myelodysplastic syndrome S/P chemotherapy COPD CAD S/P PCI HTN BPH Plan continue Merrem and Doxycycline day 5 (to complete 4-7 days) and has been given a dose of IV vancomycin; continue Tamiflu day 5 to complete 5 days blood cx negative continue to monitor neutrophil and WBC counts
[2018-01-10] MEDS: guaiFENesin-Codeine 100-10mg/5ml Syrup (5 ml) UD PO PRN (22:03)
--- NOTE | 2018-01-11 03:01 | PN ---
DATE: 01/10/2018 PULMONARY PROGRESS NOTE REFERRING PHYSICIAN: Ria Nichols MD. SUBJECTIVE: He is lying in the bed, head at 45 degrees. Night was unremarkable. Feels much better. Decreased cough. Decreased shortness of breath. No nausea. No vomiting, diarrhea, leg pain, leg swelling. OBJECTIVE: GENERAL: In no acute distress. VITAL SIGNS: Temp is 98, heart rate is 80, respiratory rate is 20, blood pressure 116/75, pulse ox 98% on 2 liters nasal cannula. HEENT: Moist mucous membrane. Crowded airway. Mallampati score is 4. NECK: Supple. No JVD. LUNGS: Has a prolonged expiratory phase, some wheezing. HEART: S1 and S2. ABDOMEN: Soft and nontender. No organomegaly. EXTREMITIES: No edema. NEUROLOGICAL: Awake and alert. Follows simple command. MEDICATIONS: He is on doxycycline 100 mg twice a day, DuoNeb q. 6 hour p.r.n. and q. 6 hours [id number], Flomax 0.4 mg daily, Lipitor 40 mg daily, meropenem 1 g IV q. 8 hours, Mucinex inhaler twice a day, Nicoderm patch daily, Norvasc 10 mg daily, Plavix 75 mg daily, prednisone 20 mg daily, Robitussin with codeine 5 mL q. 4 hours p.r.n., Tylenol p.r.n., Zestril 10 mg daily. LABORATORY DATA: Shows hemoglobin 8.0, hematocrit 25.4, WBC 1.2, platelets 150. Sodium 144, potassium 3.8, chloride 109, bicarbonate 25, BUN 22, creatinine 0.9, glucose 112, calcium is 9.0, AST 31, ALT 58, alk phos is 49. Albumin is 3.5. Microbiology: Blood cultures and sputum cultures are negative. IMPRESSION AND PLAN: Influenza B infection, triggered chronic obstructive lung disease, coronary artery disease, history of myelodysplastic syndrome. From Pulmonary point of view, he is doing okay. He has leukopenia. We will decrease prednisone and discontinue in a few days. Antibiotics as per Infectious Diseases. Cough suppressants. Gastric and deep venous thrombosis prophylaxes. Thank you and we will follow with you. Sindhu Paiz MD [facility] # [id number]
[2018-01-11] MEDS: Albuterol-Ipratrop 3 mg / 0.5 (3 ml) UD IH SCH ×3 (03:11→13:46)
--- NOTE | 2018-01-11 03:30 | PN ---
DATE: PROGRESS NOTE SUBJECTIVE: Patient is a 67-year-old male. Patient is seen and examined on the bedside, looking comfortable. No nausea, vomiting, or diarrhea. No hematuria or hematochezia. No swelling of the leg. No chest pain. No palpitation. No headache. No dizziness. Still coughing with shortness of breath. PHYSICAL EXAMINATION: VITAL SIGNS: Temperature 97.0, pulse 77, respiratory rate 20, blood pressure 128/88, pulse oximetry 99. HEENT: Head: Normocephalic, atraumatic. Eyes: PERRLA. Extraocular muscles are intact. Conjunctivae clear. Nose patent. Mucous membranes moist. NECK: Supple. No carotid bruit, JVD, or thyromegaly. CHEST: Bilaterally symmetrical. HEART: S1 and S2 positive. LUNGS: Clear to auscultation. ABDOMEN: Soft. Bowel sounds positive. No organomegaly. EXTREMITIES: No edema. No cyanosis. NEUROLOGIC: Patient is awake, alert. Moving all 4 extremities. No focal deficit. MEDICATIONS: DuoNeb, Norvasc, Lipitor, Plavix, doxycycline, phosphate, Mucinex, Protonix, lisinopril, nicotine, prednisone, tamsulosin. LABORATORY DATA: White blood cells 1.8, hemoglobin 8.6, hematocrit 26.5, platelets 110. Sodium 142, potassium 4.9, BUN 30, creatinine 1.0, glucose 112. ASSESSMENT AND PLAN: Mr. Shashank Michelle is a 67-year-old male with leukopenia, anemia, thrombocytopenia - actually pancytopenia, hyperchloremia, hyperglycemia, severe sepsis due to right lower lobe pneumonia on top of influenza B infection, and status post febrile neutropenia, status post inguinal hernia repair, myelodysplastic syndrome status post chemotherapy, chronic obstructive pulmonary disease, coronary artery disease status post percutaneous coronary intervention, hypertension, benign prostatic hypertrophy. Continue Merrem and doxycycline, day 5 to complete the 4 to 7 days of antibiotics and has been given a dose of intravenous vancomycin. Continue Tamiflu, day 5 to be completed of day 5. Blood cultures are negative. Continue monitoring neutrophil and white blood cell counts. Seen by Dr. Forbes, patient's club waiter/waitress. Patient has myelodysplastic syndrome. Normally, patient has being followed up with his Dr. Good in the office, getting chemotherapy there. Gastrointestinal and deep venous thrombosis prophylaxes. Repeat labs. We will follow up. Ria Nichols MD
[2018-01-11] MEDS: Pantoprazole 40 mg EC Tab PO SCH (06:30)
[2018-01-11] MEDS: Meropenem 1g/NS 100mL IVPB 1 GM/100 ML PIGGYBACK IVPB SCH ×2 (06:30→13:36)
[2018-01-11 07:41] LABS: HEMOGLOBIN 7.9 g/dL (14.0-18.0); MEAN CELL VOLUME 101.6 fl (80.0-105.0); MEAN CORPUSCULAR HGB CONC 31.5 g/dl (31.0-37.0); MEAN PLATELET VOLUME 10.2 fl (7.0-11.0); RBC 2.47 10^6/uL (3.5-6.1); RED CELL DISTRIBUTION WIDTH 17.7 % (11.5-14.5)
[2018-01-11 07:44] LABS: WHITE BLOOD COUNT 1.1 10^3/ul (4.5-11.0)
[2018-01-11 07:57] LABS: ALB/GLOB RATIO 1.6 (1.1-1.8); ALBUMIN 3.3 g/dL (3.0-4.8); ALT/SGPT 56 U/L (7-56); AST/SGOT 35 U/L (17-59); BLOOD UREA NITROGEN 20 mg/dL (7-21); CALCIUM 8.8 mg/dL (8.4-10.5); GFR AFRICAN-AMERICAN > 60; GFR NON-AFRICAN AMERICAN > 60
[2018-01-11] MEDS: guaiFENesin-DM 600-30 mg ER Tab PO SCH ×2 (09:55→18:50)
--- NOTE | 2018-01-11 13:22 | CP.PCM.PN ---
Subjective - Date & Time of Evaluation Date of Evaluation: 01/11/18 Time of Evaluation: 11:55 - Subjective Subjective: Comfortable, no fevers. Objective - Vital Signs/Intake and Output Vital Signs (last 24 hours): Temp Pulse Resp BP Pulse Ox 98.2 F 72 20 128/74 94 L 01/11/18 07:00 01/11/18 07:00 01/11/18 07:00 01/11/18 07:00 01/11/18 07:00 Intake and Output: 01/11/18 01/11/18 06:59 18:59 Intake Total 180 Output Total 500 Balance -320 - Medications Medications: Current Medications Acetaminophen (Tylenol 325mg Tab) 650 mg PO Q6H PRN PRN Reason: Fever >100.4 F Last Admin: 01/05/18 12:15 Dose: 650 mg Albuterol/Ipratropium (Duoneb 3 Mg/0.5 Mg (3 Ml) Ud) 3 ml IH [id number] PRN PRN Reason: Shortness of Breath Last Admin: 01/06/18 21:38 Dose: 3 ml Albuterol/Ipratropium (Duoneb 3 Mg/0.5 Mg (3 Ml) Ud) [id number] [facility] Last Admin: 01/11/18 08:09 Dose: 3 ml Amlodipine Besylate (Norvasc) [address] [facility] Last Admin: 01/10/18 09:53 Dose: 10 mg Atorvastatin Calcium (Lipitor) [address] [facility] Last Admin: 01/10/18 09:53 Dose: 40 mg Clopidogrel Bisulfate (Plavix) [address] [facility] Last Admin: 01/10/18 09:53 Dose: 75 mg Doxycycline Hyclate (Doryx) 100 mg PO Q12 [facility] PRN Reason: Protocol Last Admin: 01/10/18 21:58 Dose: 100 mg Guaifenesin/Codeine Phosphate (Robitussin W/Codeine) 5 ml PO Q4H PRN PRN Reason: Cough and congestion Last Admin: 01/10/18 22:03 Dose: 5 ml Guaifenesin/Dextromethorphan (Mucinex-Dm 600-30 Mg) [address] [facility] Last Admin: 01/10/18 17:09 Dose: 1 tab Meropenem/Sodium Chloride (Meropenem 1g/Ns 100ml Ivpb) 1 gm in 100 mls @ 100 mls/hr IVPB Q8 [facility] PRN Reason: Protocol Stop: 01/14/18 22:43 Last Admin: 01/11/18 06:30 Dose: 100 mls/hr Lisinopril (Zestril) [address] [facility] Last Admin: 01/10/18 09:53 Dose: 10 mg Nicotine (Nicoderm Cq) [address] [facility] Last Admin: 01/10/18 09:53 Dose: 1 patch Pantoprazole Sodium (Protonix Ec Tab) [address] [facility] Last Admin: 01/11/18 06:30 Dose: 40 mg Prednisone (Prednisone Tab) [address] [facility] Tamsulosin HCl (Flomax) 0.[address] [facility] Last Admin: 01/10/18 17:09 Dose: 0.4 mg - Labs Labs: 01/11/18 07:20 01/11/18 07:20 PT 16.6 SECONDS (9.4-12.5) H 01/04/18 14:55 INR 1.45 (0.93-1.08) H 01/04/18 14:55 APTT 29.8 Seconds (25.1-36.5) 01/04/18 14:55 - Constitutional Appears: Chronically Ill - Head Exam Head Exam: NORMAL INSPECTION - Respiratory Exam Respiratory Exam: Decreased Breath Sounds - Cardiovascular Exam Cardiovascular Exam: +S1, +S2 - GI/Abdominal Exam GI & Abdominal Exam: Soft. absent: Tenderness Assessment and Plan - Assessment and Plan (Free Text) Plan: Assessment Severe sepsis due to right lower lobe pneumonia on top of Influenza B infection and S/P febrile neutropenia S/P inguinal hernia repair myelodysplastic syndrome S/P chemotherapy COPD CAD S/P PCI HTN BPH Plan continue Merrem and Doxycycline day 6 (to complete 4-7 days) and has been given a dose of IV vancomycin; completed 5 days of Tamiflu blood cx negative continue to monitor neutrophil and WBC counts
--- NOTE | 2018-01-11 13:42 | CP.PCM.DIS ---
<MaxMeme Jeanette - Last Filed: 01/11/18 13:39> Provider - Provider Date of Admission: 01/04/18 19:59 Attending physician: Ria Nichols MD Primary care physician: Ruben Michelle JD, MD Consults: Pulmo - Dr. Paiz Neuro - [facility] Oncology - Dr. Forbes ID - Dr. Lamb Time Spent in preparation of Discharge (in minutes): 45 Diagnosis - Discharge Diagnosis (1) Iron deficiency anemia Status: Acute (2) Dehydration Status: Acute (3) Hyperglycemia Status: Acute (4) Hyperthyroidism Status: Acute (5) Hematuria Status: Acute (6) Proteinuria Status: Acute (7) Influenza Status: Acute (8) Pancytopenia Status: Acute (9) Pneumonia Status: Acute Hospital Course - Lab Results Lab Results: Micro Results 01/07/18 14:10 Sputum Gram Stain - Final 01/07/18 14:10 Sputum Sputum Culture - Final NORMAL ORAL FATEMEH Most Recent Lab Values WBC 1.1 10^3/ul (4.5-11.0) L* 01/11/18 07:20 RBC 2.47 10^6/uL (3.5-6.1) L 01/11/18 07:20 Hgb 7.9 g/dL (14.0-18.0) L 01/11/18 07:20 Hct 25.1 % (42.0-52.0) L 01/11/18 07:20 MCV 101.6 fl (80.0-105.0) 01/11/18 07:20 MCH 32.0 pg (25.0-35.0) 01/11/18 07:20 MCHC 31.5 g/dl (31.0-37.0) 01/11/18 07:20 RDW 17.7 % (11.5-14.5) H 01/11/18 07:20 Plt Count 156 10^3/uL (120.0-450.0) 01/11/18 07:20 MPV 10.2 fl (7.0-11.0) 01/11/18 07:20 Gran % 59.7 % (50.0-68.0) 01/10/18 10:00 Lymph % (Auto) 37.9 % (22.0-35.0) H 01/10/18 10:00 [place] % (Auto) 1.6 % (1.0-6.0) 01/10/18 10:00 Eos % (Auto) 0.8 % (1.5-5.0) L 01/10/18 10:00 Baso % (Auto) 0.0 % (0.0-3.0) 01/10/18 10:00 Gran # 0.74 (1.4-6.5) L 01/10/18 10:00 Lymph # (Auto) 0.5 (1.2-3.4) L 01/10/18 10:00 [place] # (Auto) 0.0 (0.1-0.6) L 01/10/18 10:00 Eos # (Auto) 0.0 (0.0-0.7) 01/10/18 10:00 Baso # (Auto) 0.00 K/mm3 (0.0-2.0) 01/10/18 10:00 PT 16.6 SECONDS (9.4-12.5) H 01/04/18 14:55 INR 1.45 (0.93-1.08) H 01/04/18 14:55 APTT 29.8 Seconds (25.1-36.5) 01/04/18 14:55 pO2 81 mm/Hg (30-55) H 01/04/18 14:55 VBG pH 7.43 (7.32-7.43) 01/04/18 14:55 VBG pCO2 37.0 (40-60) L 01/04/18 14:55 VBG HCO3 24.6 mmol/l (21-28) 01/04/18 14:55 VBG Total CO2 25.7 mmol.L (22-28) 01/04/18 14:55 VBG O2 Sat (Calc) 98.5 % (40-65) H 01/04/18 14:55 VBG Base Excess 0.5 mmol/L (0.0-2.0) 01/04/18 14:55 VBG Potassium 4.1 mmol/L (3.6-5.2) 01/04/18 14:55 Sodium 138.0 mmol/L (132-148) 01/04/18 14:55 Chloride 107.0 mmol/L (98-107) 01/04/18 14:55 Glucose 109 mg/dl (75-110) 01/04/18 14:55 Lactate 1.3 mmol/L (0.7-2.1) 01/04/18 14:55 FiO2 21.0 % 01/04/18 14:55 Sodium 145 mmol/L (132-148) 01/11/18 07:20 Potassium 4.3 mmol/L (3.6-5.0) 01/11/18 07:20 Chloride 109 mmol/L (98-107) H 01/11/18 07:20 Carbon Dioxide 27 mmol/L (21-33) 01/11/18 07:20 Anion Gap 14 (10-20) 01/11/18 07:20 BUN 20 mg/dL (7-21) 01/11/18 07:20 Creatinine 0.9 mg/dl (0.8-1.5) 01/11/18 07:20 Est GFR ( Amer) > 60 01/11/18 07:20 Est GFR (Non-Af Amer) > 60 01/11/18 07:20 Random Glucose 82 mg/dL (70-110) 01/11/18 07:20 Hemoglobin A1c 5.2 % (4.2-6.5) 01/05/18 22:30 Calcium 8.8 mg/dL (8.4-10.5) 01/11/18 07:20 Iron 19 ug/dL (45-180) L 01/05/18 22:30 TIBC 248 ug/dL (261-462) L 01/05/18 22:30 % Saturation 8 % (20-55) L 01/05/18 22:30 Total Bilirubin 0.4 mg/dL (0.2-1.3) 01/11/18 07:20 AST 35 U/L (17-59) 01/11/18 07:20 ALT 56 U/L (7-56) 01/11/18 07:20 Alkaline Phosphatase 52 U/L (38-126) 01/11/18 07:20 Total Protein 5.3 g/dL (5.8-8.3) L 01/11/18 07:20 Albumin 3.3 g/dL (3.0-4.8) 01/11/18 07:20 Globulin 2.0 gm/dL 01/11/18 07:20 Albumin/Globulin Ratio 1.6 (1.1-1.8) 01/11/18 07:20 Triglycerides 60 mg/dL (35-160) 01/05/18 22:30 Cholesterol 66 mg/dL (130-200) L 01/05/18 22:30 LDL Cholesterol Direct < 30 mg/dL (0-129) 01/05/18 22:30 HDL Cholesterol 35 mg/dL (29-60) 01/05/18 22:30 Vitamin B12 396 pg/mL (239-931) 01/05/18 22:30 Folate 14.6 ng/mL 01/05/18 22:30 Procalcitonin 0.26 NG/ML (0.19-0.49) 01/05/18 22:50 TSH 3rd Generation 0.24 mIU/mL (0.46-4.68) L 01/06/18 08:00 Venous Blood Potassium 4.1 mmol/L (3.6-5.2) 01/04/18 14:55 Urine Color Yellow (YELLOW) 01/07/18 14:10 Urine Appearance Sl cloudy (CLEAR) 01/07/18 14:10 Urine pH 5.5 (4.7-8.0) 01/07/18 14:10 Ur Specific [place] 1.025 (1.005-1.035) 01/07/18 14:10 Urine Protein 30 mg/dL (<30 mg/dL) H 01/07/18 14:10 Urine Glucose (UA) Negative mg/dL (NEGATIVE) 01/07/18 14:10 Urine Ketones Negative mg/dL (NEGATIVE) 01/07/18 14:10 Urine Blood Small (NEGATIVE) H 01/07/18 14:10 Urine Nitrate Negative (NEGATIVE) 01/07/18 14:10 Urine Bilirubin Negative (NEGATIVE) 01/07/18 14:10 Urine Urobilinogen 0.2 E.U./dL (<1 E.U./dL) 01/07/18 14:10 Ur Leukocyte Esterase Negative Sonido/uL (NEGATIVE) 01/07/18 14:10 Urine RBC 0 - 2 /hpf (0-2) 01/07/18 14:10 Urine WBC 0 - 2 /hpf (0-6) 01/07/18 14:10 Ur Epithelial Cells 0 - 2 /hpf (0-5) 01/07/18 14:10 Urine Bacteria Neg (NEG) 01/07/18 14:10 Influenza Typ A,B (EIA) Pos for influenza b (NEGATIVE) H 01/04/18 14:55 Ur L.pneumophila Ag Negative (NEGATIVE) 01/07/18 14:10 - Hospital Course Hospital Course: 67 yr male w/ history of myelodysplastic syndrome (on chemotherapy), HTN, anemia, BPH, CADx2 (2013 & 2011), lipoma removal of L shoulder, and everyday smoker. Patient successfully treated for Pneumonia with IV meropenem & PO doxcycline and for Influenza B with tamiflu. Pt continues to have neutropenia and follow up recommended with his oncologist. Cleared for discharge with follow up at our office. - Date & Time of H&P Date of H&P: 01/11/18 Time of H&P: 09:30 Discharge Exam - Head Exam Head Exam: NORMAL INSPECTION - Eye Exam Eye Exam: EOMI, Normal appearance, PERRL Pupil Exam: NORMAL ACCOMODATION, PERRL - ENT Exam ENT Exam: Mucous Membranes Moist - Neck Exam Neck exam: Full Rom - Respiratory Exam Respiratory Exam: Clear to PA & Lateral, NORMAL BREATHING PATTERN, UNREMARKABLE - Cardiovascular Exam Cardiovascular Exam: +S1, +S2 - GI/Abdominal Exam GI & Abdominal Exam: Normal Bowel Sounds - Extremities Exam Extremities exam: full ROM - Back Exam Back exam: NORMAL INSPECTION - Neurological Exam Neurological exam: Alert, CN II-XII Intact, Normal Gait, Oriented x3, Reflexes Normal - Psychiatric Exam Psychiatric exam: Normal Affect, Normal Mood - Skin Skin Exam: Dry, Intact, Normal Color, Warm Discharge Plan - Follow Up Plan Condition: FAIR Disposition: HOME/ ROUTINE Instructions: Chemotherapy, Neutropenia, Flu, Adult (DC), Community-Acquired Pneumonia in Adults, Dehydration (DC) Additional Instructions: Take medications as directed. Return to Local ER if symptoms worsen. Follow up with primary care provider. Follow up with oncologist. Referrals: Ria Nichols MD [Staff Provider] - Benson Lamb MD [Staff Provider] - Pedro Forbes MD [Medical Doctor] - Sindhu Paiz MD [Staff Provider] - <Ria Nichols - Last Filed: 01/11/18 22:04> Provider - Provider Date of Admission: 01/04/18 19:59 Attending physician: Ria Nichols MD Primary care physician: Ruben Michelle JD, MD Hospital Course - Lab Results Lab Results: Micro Results 01/07/18 14:10 Sputum Gram Stain - Final 01/07/18 14:10 Sputum Sputum Culture - Final NORMAL ORAL FATEMEH Most Recent Lab Values WBC 1.1 10^3/ul (4.5-11.0) L* 01/11/18 07:20 RBC 2.47 10^6/uL (3.5-6.1) L 01/11/18 07:20 Hgb 7.9 g/dL (14.0-18.0) L 01/11/18 07:20 Hct 25.1 % (42.0-52.0) L 01/11/18 07:20 MCV 101.6 fl (80.0-105.0) 01/11/18 07:20 MCH 32.0 pg (25.0-35.0) 01/11/18 07:20 MCHC 31.5 g/dl (31.0-37.0) 01/11/18 07:20 RDW 17.7 % (11.5-14.5) H 01/11/18 07:20 Plt Count 156 10^3/uL (120.0-450.0) 01/11/18 07:20 MPV 10.2 fl (7.0-11.0) 01/11/18 07:20 Gran % 59.7 % (50.0-68.0) 01/10/18 10:00 Lymph % (Auto) 37.9 % (22.0-35.0) H 01/10/18 10:00 [place] % (Auto) 1.6 % (1.0-6.0) 01/10/18 10:00 Eos % (Auto) 0.8 % (1.5-5.0) L 01/10/18 10:00 Baso % (Auto) 0.0 % (0.0-3.0) 01/10/18 10:00 Gran # 0.74 (1.4-6.5) L 01/10/18 10:00 Lymph # (Auto) 0.5 (1.2-3.4) L 01/10/18 10:00 [place] # (Auto) 0.0 (0.1-0.6) L 01/10/18 10:00 Eos # (Auto) 0.0 (0.0-0.7) 01/10/18 10:00 Baso # (Auto) 0.00 K/mm3 (0.0-2.0) 01/10/18 10:00 PT 16.6 SECONDS (9.4-12.5) H 01/04/18 14:55 INR 1.45 (0.93-1.08) H 01/04/18 14:55 APTT 29.8 Seconds (25.1-36.5) 01/04/18 14:55 pO2 81 mm/Hg (30-55) H 01/04/18 14:55 VBG pH 7.43 (7.32-7.43) 01/04/18 14:55 VBG pCO2 37.0 (40-60) L 01/04/18 14:55 VBG HCO3 24.6 mmol/l (21-28) 01/04/18 14:55 VBG Total CO2 25.7 mmol.L (22-28) 01/04/18 14:55 VBG O2 Sat (Calc) 98.5 % (40-65) H 01/04/18 14:55 VBG Base Excess 0.5 mmol/L (0.0-2.0) 01/04/18 14:55 VBG Potassium 4.1 mmol/L (3.6-5.2) 01/04/18 14:55 Sodium 138.0 mmol/L (132-148) 01/04/18 14:55 Chloride 107.0 mmol/L (98-107) 01/04/18 14:55 Glucose 109 mg/dl (75-110) 01/04/18 14:55 Lactate 1.3 mmol/L (0.7-2.1) 01/04/18 14:55 FiO2 21.0 % 01/04/18 14:55 Sodium 145 mmol/L (132-148) 01/11/18 07:20 Potassium 4.3 mmol/L (3.6-5.0) 01/11/18 07:20 Chloride 109 mmol/L (98-107) H 01/11/18 07:20 Carbon Dioxide 27 mmol/L (21-33) 01/11/18 07:20 Anion Gap 14 (10-20) 01/11/18 07:20 BUN 20 mg/dL (7-21) 01/11/18 07:20 Creatinine 0.9 mg/dl (0.8-1.5) 01/11/18 07:20 Est GFR ( Amer) > 60 01/11/18 07:20 Est GFR (Non-Af Amer) > 60 01/11/18 07:20 Random Glucose 82 mg/dL (70-110) 01/11/18 07:20 Hemoglobin A1c 5.2 % (4.2-6.5) 01/05/18 22:30 Calcium 8.8 mg/dL (8.4-10.5) 01/11/18 07:20 Iron 19 ug/dL (45-180) L 01/05/18 22:30 TIBC 248 ug/dL (261-462) L 01/05/18 22:30 % Saturation 8 % (20-55) L 01/05/18 22:30 Total Bilirubin 0.4 mg/dL (0.2-1.3) 01/11/18 07:20 AST 35 U/L (17-59) 01/11/18 07:20 ALT 56 U/L (7-56) 01/11/18 07:20 Alkaline Phosphatase 52 U/L (38-126) 01/11/18 07:20 Total Protein 5.3 g/dL (5.8-8.3) L 01/11/18 07:20 Albumin 3.3 g/dL (3.0-4.8) 01/11/18 07:20 Globulin 2.0 gm/dL 01/11/18 07:20 Albumin/Globulin Ratio 1.6 (1.1-1.8) 01/11/18 07:20 Triglycerides 60 mg/dL (35-160) 01/05/18 22:30 Cholesterol 66 mg/dL (130-200) L 01/05/18 22:30 LDL Cholesterol Direct < 30 mg/dL (0-129) 01/05/18 22:30 HDL Cholesterol 35 mg/dL (29-60) 01/05/18 22:30 Vitamin B12 396 pg/mL (239-931) 01/05/18 22:30 Folate 14.6 ng/mL 01/05/18 22:30 Procalcitonin 0.26 NG/ML (0.19-0.49) 01/05/18 22:50 TSH 3rd Generation 0.24 mIU/mL (0.46-4.68) L 01/06/18 08:00 Venous Blood Potassium 4.1 mmol/L (3.6-5.2) 01/04/18 14:55 Urine Color Yellow (YELLOW) 01/07/18 14:10 Urine Appearance Sl cloudy (CLEAR) 01/07/18 14:10 Urine pH 5.5 (4.7-8.0) 01/07/18 14:10 Ur Specific [place] 1.025 (1.005-1.035) 01/07/18 14:10 Urine Protein 30 mg/dL (<30 mg/dL) H 01/07/18 14:10 Urine Glucose (UA) Negative mg/dL (NEGATIVE) 01/07/18 14:10 Urine Ketones Negative mg/dL (NEGATIVE) 01/07/18 14:10 Urine Blood Small (NEGATIVE) H 01/07/18 14:10 Urine Nitrate Negative (NEGATIVE) 01/07/18 14:10 Urine Bilirubin Negative (NEGATIVE) 01/07/18 14:10 Urine Urobilinogen 0.2 E.U./dL (<1 E.U./dL) 01/07/18 14:10 Ur Leukocyte Esterase Negative [place]/uL (NEGATIVE) 01/07/18 14:10 Urine RBC 0 - 2 /hpf (0-2) 01/07/18 14:10 Urine WBC 0 - 2 /hpf (0-6) 01/07/18 14:10 Ur Epithelial Cells 0 - 2 /hpf (0-5) 01/07/18 14:10 Urine Bacteria Neg (NEG) 01/07/18 14:10 Influenza Typ A,B (EIA) Pos for influenza b (NEGATIVE) H 01/04/18 14:55 Ur L.pneumophila Ag Negative (NEGATIVE) 01/07/18 14:10 - Hospital Course Hospital Course: pt is seen and examined at bed side , looking comfortable . agreed all above , chart , meds and labs noted , will f/u
[2018-01-11 17:19] VITALS: BP 113/73; PULSE 85; TEMP 97.9; O2SAT 92
--- NOTE | 2018-01-11 23:17 | PN ---
DATE: 01/11/2018 REFERRING PHYSICIAN: Ria Nichols MD. SUBJECTIVE: He is lying in the bed, head at 45 degree. Night was unremarkable. Feels better. No more headache. No rhinitis. Cough is better. No nausea, no vomiting, no diarrhea. No leg pain or leg swelling. PHYSICAL EXAMINATION: GENERAL: In no acute distress. VITAL SIGNS: Temperature is 98, heart rate is 85, respiratory rate is 20, blood pressure 113/73, pulse ox 92% on nasal cannula. HEENT: Moist mucous membrane. Crowded airway. Mallampati score is 4. NECK: Supple. No JVD. LUNGS: Fair airflow with few rhonchi. HEART: S1 and S2. ABDOMEN: Soft, nontender. No organomegaly. EXTREMITIES: There is no edema. NEUROLOGIC: Awake, alert, follows simple command. MEDICATIONS: He is on doxycycline 100 mg twice a day, DuoNeb q. 6 hours p.r.n., Flomax 0.4 mg daily, Lipitor 40 mg daily, meropenem 1 g IV q.8h., Mucinex DM 1 tab twice a day, Nicoderm patch daily, Norvasc 10 mg daily, Plavix 75 daily, prednisone 10 mg daily, Protonix 40 mg daily, Robitussin 5 mL q. 4 hours p.r.n., Tylenol on p.r.n. basis, Zestril 10 mg daily. LABORATORY DATA: Hemoglobin 7.9, hematocrit 25.1, WBC 1.1, platelets 156. Sodium 145, potassium 4.3, chloride 109, bicarbonate 27, BUN 20, creatinine 0.9, glucose 82, calcium 8.8. AST 35, ALT 56, alkaline phosphatase 52, albumin 3.3. TSH is 0.24. Microbiology: Blood culture, sputum culture, there is no growth. IMPRESSION AND PLAN: Influenza B infection, treated, triggered chronic obstructive lung disease which has improved, coronary artery disease, history of myelodysplastic syndrome. From a Pulmonary point of view, he is doing well. His prednisone could be discontinued. He could be discharged home if okay with Infectious Disease with few antibiotics if need. Upon discharge, as outpatient, he needs pulmonary function test. Also needs attended sleep study, fall precaution. Thank you and we will follow with you. Sindhu Paiz MD [facility] # [id number]
== END 2018-01-11 19:28 | disposition home or self-care (01) | DRG 871 ==
LOC: ED 13:49 → ERH 19:59 → 5RSO 01-05 17:29
PROVIDERS: ADMIT Internal Medicine; ATTEND Internal Medicine
DX: A41.89 Other specified sepsis (principal); J11.00 Influenza due to unidentified influenza virus with unspecified type of pneumonia; D61.818 Other pancytopenia; R65.20 Severe sepsis without septic shock; E86.0 Dehydration; D70.9 Neutropenia, unspecified; R50.81 Fever presenting with conditions classified elsewhere; D46.9 Myelodysplastic syndrome, unspecified; J44.9 Chronic obstructive pulmonary disease, unspecified; D50.9 Iron deficiency anemia, unspecified; F17.210 Nicotine dependence, cigarettes, uncomplicated; R31.9 Hematuria, unspecified; R73.9 Hyperglycemia, unspecified; N40.0 Benign prostatic hyperplasia without lower urinary tract symptoms; E05.90 Thyrotoxicosis, unspecified without thyrotoxic crisis or storm; I10 Essential (primary) hypertension; I25.10 Atherosclerotic heart disease of native coronary artery without angina pectoris; E78.00 Pure hypercholesterolemia, unspecified; Z95.5 Presence of coronary angioplasty implant and graft

== ENCOUNTER 2018-05-02 07:50 | Emergency (ER) | payer MEDICARE, OTHER ==
[2018-05-02 08:03] VITALS: BMI 27.3
[2018-05-02] MEDS ORDERED: Morphine 4 mg/ml ISec IVP STA (08:21)
--- NOTE | 2018-05-02 08:26 | ED PDOC ---
Arrival/HPI - General Chief Complaint: Chest Pain Time Seen by Provider: 05/02/18 08:06 Historian: Patient - History of Present Illness Narrative History of Present Illness (Text): 05/02/18 08:00 68 year old male, with past medical history of CAD, stents, hypertension, high cholesterol, and myelodysplastic syndrome on chemotherapy (last chemotherapy was 1 week ago), presents to the Emergency department complaining of right sided chest and lower back discomfort since yesterday. Patient informs he was moving boxes yesterday when the symptoms began and the pain has been persistent since then. Patient informs worsening pain with movement, touch and breathing. Patient denies any trauma or radiation of pain. Patient denies any fever, chills , nausea, vomiting, diarrhea, abdominal pain, shortness of breath or any other complaints. Patient presents to the Emergency department for medical evaluation of ongoing symptoms since 24 hours. Time/Duration: 24 hours Symptom Onset: Gradual Symptom Course: Unchanged Quality: Aching Activities at Onset: Other (Moving furniture) Context: Home Past Medical History - Provider Review Nursing Documentation Reviewed: Yes - Cardiac Hx Cardiac Disorders: Yes Hx Hypertension: Yes - Pulmonary Hx Respiratory Disorders: No - Neurological Hx Neurological Disorder: No - HEENT Hx HEENT Disorder: No - Renal Hx Renal Disorder: No - Endocrine/Metabolic Hx Endocrine Disorders: No - Hematological/Oncological Hx Blood Disorders: Yes Hx Anemia: Yes Hx Leukemia: Yes - Integumentary Hx Dermatological Disorder: No - Musculoskeletal/Rheumatological Hx Musculoskeletal Disorders: No Hx Falls: No - Gastrointestinal Hx Gastrointestinal Disorders: No - Genitourinary/Gynecological Hx Genitourinary Disorders: No Hx Prostate Problems: Yes (enlarged) - Psychiatric Hx Psychophysiologic Disorder: No Hx Substance Use: No - Surgical History Hx Cardiac Catheterization: Yes Hx Coronary Stent: Yes (x2 04/2014, x2 2011) Other/Comment: fatty tissue removed from left shoulder/ back - Anesthesia Hx Anesthesia: Yes Hx Anesthesia Reactions: No Hx Malignant Hyperthermia: No - Suicidal Assessment Feels Threatened In Home Enviroment: No Family/Social History - Physician Review Nursing Documentation Reviewed: Yes Family/Social History: No Known Family HX Smoking Status: Former Smoker Hx Alcohol Use: No Hx Substance Use: No Hx Substance Use Treatment: No Allergies/Home Meds Allergies/Adverse Reactions: Allergies No Known Allergies Allergy (Verified 05/02/18 08:05) Home Medications: Home Meds Medication Instructions Recorded Confirmed Enalapril Maleate 10 mg PO DAILY 02/09/15 01/30/18 Simvastatin 40 mg PO DAILY 02/09/15 01/30/18 Omeprazole [Omeprazole] 20 mg PO DAILY 09/06/17 01/30/18 Review of Systems - Physician Review All systems were reviewed & negative as marked: Yes - Review of Systems Constitutional: Normal. absent: Fevers Eyes: Normal ENT: Normal Respiratory: Normal. absent: SOB Cardiovascular: Chest Pain Gastrointestinal: Normal. absent: Abdominal Pain, Diarrhea, Nausea, Vomiting Genitourinary Male: Normal Musculoskeletal: Back Pain Skin: Normal Neurological: Normal Endocrine: Normal Hemo/Lymphatic: Normal Psychiatric: Normal Physical Exam Vital Signs Reviewed: Yes Vital Signs Temp Pulse Resp BP Pulse Ox 05/02/18 13:00 99.2 F 86 18 112/61 96 05/02/18 11:42 95 H 19 97/59 L 96 05/02/18 08:01 100.7 F H 83 18 144/65 93 L Temperature: Febrile Blood Pressure: Normal Pulse: Regular Respiratory Rate: Normal Appearance: Positive for: Well-Appearing, Non-Toxic, Comfortable Pain Distress: None Mental Status: Positive for: Alert and Oriented X 3 - Systems Exam Head: Present: Atraumatic, Normocephalic Pupils: Present: PERRL Extroacular Muscles: Present: EOMI Conjunctiva: Present: Normal Mouth: Present: Moist Mucous Membranes Neck: Present: Normal Range of Motion Respiratory/Chest: Present: Clear to Auscultation, Good Air Exchange. No: Respiratory Distress, Accessory Muscle Use Cardiovascular: Present: Regular Rate and Rhythm, Normal S1, S2, Other (Right sided chest wall tenderness to palpation). No: Murmurs Abdomen: No: Tenderness, Distention, Peritoneal Signs Back: Present: Paraspinal Tenderness (lumbar paraspinal tenderness) Upper Extremity: Present: Normal Inspection. No: Cyanosis, Edema Lower Extremity: Present: Normal Inspection. No: Edema Neurological: Present: GCS=15, CN II-XII Intact, Speech Normal Skin: Present: Warm, Dry, Normal Color. No: Rashes Psychiatric: Present: Alert, Oriented x 3, Normal Insight, Normal Concentration Medical Decision Making ED Course and Treatment: 05/02/18 08:00 Impression: 68 year old male presents to the Emergency department for right sided chest discomfort and lower back pain since yesterday. Differential Diagnosis included but are not limited to: DC vs. musculoskeletal Plan: -- EKG -- VBG -- Labs -- Morphine -- Robaxin -- Zofran -- Blood Culture -- Urine Culture -- Urinalysis -- Reassess and disposition Prior Visits: Notes and results from previous visits were reviewed. Progress Notes: 05/02/18 07;56 EKG: Ordered, reviewed, and independently interpreted the EKG. Rate : 110 BPM Rhythm : Sinus Tachycardia Interpretation : Occasional premature ventricular complexes. - Lab Interpretations Lab Results: 05/02/18 09:18 05/02/18 09:18 Lab Results 05/02/18 09:18: Sodium 141, Chloride 104, Potassium 4.3, Carbon Dioxide 25, Anion Gap 16, BUN 33 H, Creatinine 1.8 H, Est GFR ( Amer) 46, Est GFR ( Non-Af Amer) 38, Random Glucose 156 H, Calcium 8.5, Total Bilirubin 1.6 H, AST 45, ALT 36, Alkaline Phosphatase 64, Lactate Dehydrogenase 582, Total Creatine Kinase 247 H, CK-MB (CK-2) 0.8, CK-MB (CK-2) % Cancelled, Troponin I 0.04, Total Protein 6.5, Albumin 3.9, Globulin 2.6, Albumin/Globulin Ratio 1.5 05/02/18 09:18: pO2 37, VBG pH 7.39, VBG pCO2 41.0, VBG HCO3 24.8, VBG Total CO2 26.1, VBG O2 Sat (Calc) 74.7 H, VBG Base Excess -0.2 L, VBG Potassium 4.2, Sodium 138.0, Chloride 109.0 H, Glucose 165 H, Lactate 1.2, FiO2 21.0, Venous Blood Potassium 4.2 05/02/18 09:18: PT 18.8 H, INR 1.62 H 05/02/18 09:18: WBC 3.2 L D, RBC 2.54 L, Hgb 8.0 L, Hct 24.8 L, MCV 97.6 D, MCH 31.5, MCHC 32.3, RDW 17.6 H, Plt Count 216, MPV 9.9, Gran % 94.8 H, Lymph % (Auto) 4.6 L, [place] % (Auto) 0.6 L, Eos % (Auto) 0.0 L, Baso % (Auto) 0.0, Gran # 3.07, Lymph # (Auto) 0.2 L, [place] # (Auto) 0.0 L, Eos # (Auto) 0.0, Baso # ( Auto) 0.00, Neutrophils % (Manual) 94 H, Band Neutrophils % 1, Lymphocytes % ( Manual) 4 L, Monocytes % (Manual) TEST NOT PERFORMED, Eosinophils % (Manual) 1, Platelet Evaluation Normal - RAD Interpretation Radiology Orders: 05/02/18 11:07 DORSAL (THORACIC) SPINE [RAD] Stat LS SPINE AP/LAT [RAD] Stat 05/02/18 11:09 CXR [CHEST TWO VIEWS (PA/LAT)] [RAD] Stat - Medication Orders Current Medication Orders: Methocarbamol (Robaxin) 500 mg PO QID BERNARDINO Last Admin: 05/02/18 14:03 Dose: Not Given Non-Admin Reason: Patient Refused Discontinued Medications Morphine Sulfate (Morphine) 4 mg IVP STAT STA Stop: 05/02/18 08:22 Last Admin: 05/02/18 09:31 Dose: 4 mg MAR Pain Assessment Document 05/02/18 09:31 [facility] (Rec: 05/02/18 09:32 [facility] [id number]) Pain Reassessment Is this a pain reassessment? No Sleep Is patient sleeping during reassessment? No Presence of Pain Presence of Pain Yes Pain Scale Used Pain Scale Used Numeric Location Left, Right or Bilateral Right Pain Location Body Site Chest Description Description Burning Intensity of Pain at present 7 Pain Behavior Facial Grimacing Aggravating Factors Changing Position Alleviating Factors/Management Medication Techniques Alleviating Factors Medication IVP Administration Document 05/02/18 09:31 [email or web address] (Rec: 05/02/18 09:32 [facility] [id number]) Charges for Administration # of IVP Administrations 1 Ondansetron HCl (Zofran Inj) 4 mg IVP STAT STA Stop: 05/02/18 08:22 Last Admin: 05/02/18 09:31 Dose: 4 mg IVP Administration Document 05/02/18 09:31 [email or web address] (Rec: 05/02/18 09:31 [facility] [id number]) Charges for Administration # of IVP Administrations 1 Ondansetron HCl (Zofran Odt) 8 mg PO STAT STA Stop: 05/02/18 14:07 Oxycodone/Acetaminophen (Percocet 5/325 Mg Tab) 1 tab PO STAT STA Stop: 05/02/18 14:07 - Scribe Statement The provider has reviewed the documentation as recorded by the Scribe Cortez Mcadams. All medical record entries made by the Scribe were at my direction and personally dictated by me. I have reviewed the chart and agree that the record accurately reflects my personal performance of the history, physical exam, medical decision making, and the department course for this patient. I have also personally directed, reviewed, and agree with the discharge instructions and disposition. Disposition/Present on Arrival - Present on Arrival Any Indicators Present on Arrival: No History of DVT/PE: No History of Uncontrolled Diabetes: No Urinary Catheter: No History of Decub. Ulcer: No History Surgical Site Infection Following: None - Disposition Have Diagnosis and Disposition been Completed?: Yes Diagnosis: Thoracic myofascial strain, Lumbar strain, Musculoskeletal chest pain, Leukemia Disposition: HOME/ ROUTINE Disposition Time: 14:28 Patient Plan: Discharge Condition: GOOD Discharge Instructions (ExitCare): Chest Pain (ED), Lumbar Muscle Strain (DC), Leukemia, Adult (DC), Costochondritis (DC), Muscle Strain (DC) Additional Instructions: Mr Micehlle.... please take a cou ple of days off of lifting boxes. Percocet is for really bad pain.l Zofran is for the upset stomach caused by the percocet. Return to us if worse. Follow up with your regular doctors. Best- Dr. Nader Rosas Forms: [employer] (Spanish)
[2018-05-02 09:33] LABS: VENOUS BLOOD GAS BASE EXCESS -0.2 mmol/L (0.0-2.0); VENOUS BLOOD GAS PO2 37 mm/Hg (30-55); VENOUS BLOOD PH 7.39 (7.32-7.43)
[2018-05-02 09:38] LABS: GRAN # 3.07 (1.4-6.5); GRAN % 94.8 % (50.0-68.0); LYMPH # 0.2 (1.2-3.4); LYMPH % 4.6 % (22.0-35.0); MEAN CELL VOLUME 97.6 fl (80.0-105.0); MEAN CORPUSCULAR HEMOGLOBIN 31.5 pg (25.0-35.0); MEAN CORPUSCULAR HGB CONC 32.3 g/dl (31.0-37.0); MEAN PLATELET VOLUME 9.9 fl (7.0-11.0); MONO % 0.6 % (1.0-6.0); PLATELET COUNT 216 10^3/uL (120.0-450.0); RBC 2.54 10^6/uL (3.5-6.1); RED CELL DISTRIBUTION WIDTH 17.6 % (11.5-14.5); WHITE BLOOD COUNT 3.2 10^3/ul (4.5-11.0)
[2018-05-02 09:43] LABS: INR 1.62 (0.93-1.08); PROTHROMBIN TIME 18.8 SECONDS (9.4-12.5)
[2018-05-02 09:45] LABS: ALB/GLOB RATIO 1.5 (1.1-1.8); ALBUMIN 3.9 g/dL (3.0-4.8); CALCIUM 8.5 mg/dL (8.4-10.5)
[2018-05-02 09:56] LABS: TROPONIN I 0.04 ng/mL
[2018-05-02 10:02] LABS: CK-MB 0.8 ng/mL (0.0-3.6)
[2018-05-02 10:16] LABS: BAND 1 % (0-2); EOSINOPHIL 1 % (0.0-3.0); LYMPHOCYTE 4 % (22.0-35.0); NEUTROPHIL 94 % (50.0-70.0); PLATELET ESTIMATE NORMAL (NORMAL)
[2018-05-02 13:57] VITALS: BP 112/61; RESP 18; TEMP 99.2
[2018-05-02] MEDS: Methocarbamol 500 MG Tab PO SCH (14:03)
[2018-05-02] MEDS ORDERED: Oxycodone/Acetaminophen 5/325 mg Tab PO STA (14:06)
[2018-05-02] MEDS ORDERED: Oxycodone/Acetaminophen 5/325 mg Tab ONE (14:06)
--- NOTE | 2018-05-02 14:33 | RAD ---
HISTORY: chest pain, right sided COMPARISON: 01/04/2018 TECHNIQUE: Chest PA and lateral FINDINGS: LUNGS: There is a dense alveolar infiltrate in the periphery of the right upper lobe PLEURA: No significant pleural effusion identified. No pneumothorax apparent. CARDIOVASCULAR: Normal. OSSEOUS STRUCTURES: No significant abnormalities. VISUALIZED UPPER ABDOMEN: Normal. OTHER FINDINGS: None. IMPRESSION: Right upper lobe pneumonia
--- NOTE | 2018-05-02 14:39 | RAD ---
PROCEDURE: Radiographs of the Lumbar Spine. HISTORY: pain after lifting boxes COMPARISON: No prior. FINDINGS: BONES: Normal alignment. No listhesis. No fracture. DISC SPACES: Unremarkable. OTHER FINDINGS: None. IMPRESSION: Unremarkable radiographs of the lumbar spine.
--- NOTE | 2018-05-02 14:39 | RAD ---
HISTORY: Pain after moving boxes COMPARISON: No prior. FINDINGS: BONES: Alignment maintained. No fracture. DISC SPACES: Normal. SOFT TISSUES: Normal. OTHER FINDINGS: Right upper lobe infiltrate IMPRESSION: Normal radiographs of the thoracic spine.
[2018-05-02 15:07] VITALS: PULSE 75; O2SAT 98
--- NOTE | 2018-05-02 23:42 | CARD ---
APPROVED REPORT EKG Measurement Heart [id number] <Conclusion> Sinus tachycardia with APCs, some are aberrantly conducted Possible Left atrial enlargement Borderline ECG
== END 2018-05-02 15:07 | disposition home or self-care (01) ==
LOC: ED 07:50
DX: S29.012A Strain of muscle and tendon of back wall of thorax, initial encounter (principal); S39.012A Strain of muscle, fascia and tendon of lower back, initial encounter; X50.0XXA Overexertion from strenuous movement or load, initial encounter; Y92.9 Unspecified place or not applicable; C94.6 Myelodysplastic disease, not elsewhere classified; R07.89 Other chest pain; I25.10 Atherosclerotic heart disease of native coronary artery without angina pectoris; I10 Essential (primary) hypertension; Z95.5 Presence of coronary angioplasty implant and graft; E78.00 Pure hypercholesterolemia, unspecified; Z87.891 Personal history of nicotine dependence
CPT/HCPCS: 71046; 72070; 72100; 80053; 82550; 82553; 82803; 83615; 84484; 85025; 85610; 87040; 93005; 96374; 96375; 99283; J2270; J2405

== ENCOUNTER 2018-05-03 18:39 | Inpatient (IN) | payer MEDICARE, OTHER ==
[2018-05-03] MEDS ORDERED: Piperacill/Tazo 4.5gm in NS 4.5 GM/100 ML BAG IVPB STA (19:20)
[2018-05-03] MEDS ORDERED: Sodium Chloride 0.9% 1,000 ML IV STA (19:21)
--- NOTE | 2018-05-03 19:25 | ED PDOC ---
Arrival/HPI - General Chief Complaint: Shortness Of Breath Time Seen by Provider: 05/03/18 18:56 Historian: Patient - History of Present Illness Narrative History of Present Illness (Text): 68yoM, CAD, Hypertension, long standing left upper extremity/shoulder masss, was seen yesterday, with normal thoracic spine and unremarkable lumbar spine xray and right upper lobe pneumonia on chest xray and having dry cough and fever but otherwise without n/v/headache/dizziness/shortness of breath/chest pain/abdomen pain/numbness/tingling/loss of limb function/pain with urination. 05/03/18 19:22 Time/Duration: 24 hours Symptom Onset: Gradual Symptom Course: Unchanged Quality: Other (no pain) Activities at Onset: Rest Context: Sitting Past Medical History - Provider Review Nursing Documentation Reviewed: Yes - Travel History Have you recently traveled outside [place] w/in the past 3 mons?: No - Infectious Disease Hx of Infectious Diseases: None - Cardiac Hx Cardiac Disorders: Yes Hx Hypertension: Yes - Pulmonary Hx Respiratory Disorders: No - Neurological Hx Neurological Disorder: No - HEENT Hx HEENT Disorder: No - Renal Hx Renal Disorder: No - Endocrine/Metabolic Hx Endocrine Disorders: No - Hematological/Oncological Hx Blood Disorders: Yes Hx Anemia: Yes Hx Chemotherapy: Yes Hx Leukemia: Yes - Integumentary Hx Dermatological Disorder: No - Musculoskeletal/Rheumatological Hx Musculoskeletal Disorders: No Hx Falls: No - Gastrointestinal Hx Gastrointestinal Disorders: No - Genitourinary/Gynecological Hx Genitourinary Disorders: No Hx Prostate Problems: Yes (enlarged) - Psychiatric Hx Psychophysiologic Disorder: No Hx Substance Use: No - Surgical History Hx Cardiac Catheterization: Yes Hx Coronary Stent: Yes (x2 04/2014, x2 2011) Other/Comment: fatty tissue removed from left shoulder/ back - Anesthesia Hx Anesthesia: Yes Hx Anesthesia Reactions: No Hx Malignant Hyperthermia: No - Suicidal Assessment Feels Threatened In Home Enviroment: No Family/Social History - Physician Review Nursing Documentation Reviewed: Yes Family/Social History: No Known Family HX Smoking Status: Former Smoker Hx Alcohol Use: No Hx Substance Use: No Hx Substance Use Treatment: No Allergies/Home Meds Allergies/Adverse Reactions: Allergies No Known Allergies Allergy (Verified 05/03/18 18:51) Home Medications: Home Meds Medication Instructions Recorded Confirmed Enalapril Maleate 10 mg PO DAILY 02/09/15 05/03/18 Simvastatin 40 mg PO DAILY 02/09/15 05/03/18 Omeprazole [Omeprazole] 20 mg PO DAILY 09/06/17 05/03/18 Review of Systems - Review of Systems Constitutional: Fevers Eyes: Normal ENT: Normal Respiratory: Cough Cardiovascular: Normal Gastrointestinal: Normal Genitourinary Male: Normal Musculoskeletal: Normal Skin: Normal Neurological: Normal Endocrine: Normal Hemo/Lymphatic: Normal Psychiatric: Normal Physical Exam Vital Signs Reviewed: Yes Vital Signs Temp Pulse Resp BP Pulse Ox 05/03/18 18:39 103 F H 112 H 22 138/75 85 L Temperature: Febrile Blood Pressure: Hypertensive Pulse: Tachycardic Respiratory Rate: Normal Appearance: Positive for: Ill-Appearing Pain Distress: None Mental Status: Positive for: Alert and Oriented X 3 - Systems Exam Head: Present: Atraumatic, Normocephalic Pupils: Present: PERRL Extroacular Muscles: Present: EOMI Conjunctiva: Present: Normal Ears: Present: Normal Mouth: Present: Moist Mucous Membranes Pharnyx: Present: Normal Nose (External): Present: Atraumatic Nose (Internal): Present: Normal Inspection Neck: Present: Normal Range of Motion Respiratory/Chest: Present: Decreased Breath Sounds Cardiovascular: Present: Regular Rate and Rhythm Abdomen: No: Tenderness, Distention, Normal Bowel Sounds, Peritoneal Signs, Rebound, Guarding, McBurney's Point Tender, Rovsing's Sign Present, Hernias, Feeding Tubes, Ostomy Tubes, Mass/Organomegaly, Scars, Other Back: Present: Normal Inspection Upper Extremity: Present: Other (LUE mobile mass w/o erythema/fluctuance/ crepitus and non-tender and otherwise b/l ue/le from/warm/sensation/cap refill+ . non-tender.) Lower Extremity: Present: Normal Inspection Neurological: Present: GCS=15, CN II-XII Intact, Speech Normal, Motor Func Grossly Intact Skin: Present: Warm, Normal Color Psychiatric: Present: Alert, Oriented x 3, Normal Insight, Normal Concentration Medical Decision Making ED Course and Treatment: 68yoM, CAD, Hypertension, long standing left upper extremity/shoulder mass, was seen yesterday, with normal thoracic spine and unremarkable lumbar spine xray and right upper lobe pneumonia on chest xray and having dry cough and fever but otherwise without n/v/headache/dizziness/shortness of breath/chest pain/abdomen pain/numbness/tingling/loss of limb function/pain with urination. ECG: sinus tachycardia ivf/zosyn abx bundle. tylenol Chest X-Ray right lung opacification and left lung vascular markings 05/03/18 21:03 wbc 1.9 - from 3.2 and 1.1 hb 7.4 from 8.0/7.9 05/03/18 21:04 Trop 0.07 BNP 1989 lactic acid 1.0 Cr 5.6 -- 1.8 05/03/18 21:[address] Michelle 68yoM, with fever 103, tachycardia 119 - 103 now with ivf/tylenol/zosyn for sespis related pneumonia, bnp 1989 thus gentle hydration, acute renal insufficiency thus he accepted for admission and asked for consult with heme/on and nephrology. 05/03/18 21:37 Reassessment Condition: Re-examined, Improved - Lab Interpretations Lab Results: 05/03/18 20:25 05/03/18 20:25 Lab Results 05/03/18 20:25: pO2 42, VBG pH 7.39, VBG pCO2 40.0, VBG HCO3 24.2, VBG Total CO2 25.4, VBG O2 Sat (Calc) 78.7 H, VBG Base Excess -0.7 L, VBG Potassium 4.3, Sodium 136.0, Chloride 106.0, Glucose 133 H, Lactate 1.0, FiO2 21.0, Venous Blood Potassium 4.3 05/03/18 20:25: Sodium 139, Chloride 103, Potassium 4.4, Carbon Dioxide 23, Anion Gap 18, BUN 54 H, Creatinine 5.6 H, Est GFR ( Amer) 12, Est GFR ( Non-Af Amer) 10, Random Glucose 128 H, Calcium 8.2 L, Magnesium 2.5 H, Total Bilirubin 2.0 H, AST 58, ALT 43, Alkaline Phosphatase 64, Lactate Dehydrogenase 593, Total Creatine Kinase 370 H, CK-MB (CK-2) 1.1, CK-MB (CK-2) % Cancelled, Troponin I 0.07 D, NT-Pro-B Natriuret Pep 1989 H, Total Protein 6.3, Albumin 3.4, Globulin 2.9, Albumin/Globulin Ratio 1.2 05/03/18 20:25: PT 18.1 H, INR 1.57 H, APTT 31.5 05/03/18 20:25: WBC 1.9 L* D, RBC 2.40 L, Hgb 7.4 L, Hct 23.4 L, MCV 97.5, MCH 30.8, MCHC 31.6, RDW 17.8 H, Plt Count 239, MPV 9.6, Gran % 91.9 H, Lymph % ( Auto) 6.5 L, [place] % (Auto) 1.1, Eos % (Auto) 0.5 L, Baso % (Auto) 0.0, Gran # 1.70, Lymph # (Auto) 0.1 L, [place] # (Auto) 0.0 L, Eos # (Auto) 0.0, Baso # (Auto ) 0.00 I have reviewed the lab results: Yes - RAD Interpretation Radiology Orders: 05/03/18 19:19 CHEST PORTABLE [RAD] Stat Pipe Smoking Machine Operator: ED Physician (Chest X-Ray right lung opacification and left lung vascular markings) - EKG Interpretation Interpreted by ED Physician: Yes (sinus tachycardia with fusion complexes) Type: 12 lead EKG - Medication Orders Current Medication Orders: Sodium Chloride (Sodium Chloride 0.9%) 1,000 mls @ 100 mls/hr IV .Q10H BERNARDINO Discontinued Medications Acetaminophen (Tylenol 325mg Tab) 975 mg PO STAT STA Stop: 05/03/18 19:21 Last Admin: 05/03/18 20:42 Dose: 975 mg Sodium Chloride (Sodium Chloride 0.9%) 1,000 mls @ 999 mls/hr IV .Q1H1M STA Stop: 05/03/18 20:21 Last Admin: 05/03/18 20:33 Dose: 999 mls/hr eMAR Start Stop Document 05/03/18 20:33 PRECIOUS (Rec: 05/03/18 20:34 PRECIOUS [id number]) Intravenous Solution Start Date 05/03/18 Start Time 20:33 End Date 05/03/18 End time 21:33 Total Infusion Time 60 Piperacillin Sod/Tazobactam Sod (Zosyn 4.5 Gm In Ns 100ml) 4.5 gm in 100 mls @ 200 mls/hr IVPB STAT STA PRN Reason: Protocol Stop: 05/03/18 19:49 Last Admin: 05/03/18 20:33 Dose: 200 mls/hr eMAR Start Stop Document 05/03/18 20:33 PRECIOUS (Rec: 05/03/18 20:33 PRECIOUS [id number]) Intravenous Solution Start Date 05/03/18 Start Time 20:33 End Date 05/03/18 End time 21:03 Total Infusion Time 30 Disposition/Present on Arrival - Present on Arrival Any Indicators Present on Arrival: No History of DVT/PE: No History of Uncontrolled Diabetes: No Urinary Catheter: No History of Decub. Ulcer: No History Surgical Site Infection Following: None - Disposition Have Diagnosis and Disposition been Completed?: Yes Diagnosis: Pneumonia, Dehydration, Pancytopenia, Sepsis, Acute renal insufficiency Disposition: HOSPITALIZED Disposition Time: 21:37 Patient Plan: Admission, Telemetry Condition: IMPROVED Discharge Instructions (ExitCare): Sepsis (ED) Referrals: Ruben Michelle JD, MD [Primary Care Provider] - Follow up with primary Forms: [employer] (Yakut)
[2018-05-03 20:36] LABS: VENOUS BLOOD GAS BASE EXCESS -0.7 mmol/L (0.0-2.0); VENOUS BLOOD GAS PO2 42 mm/Hg (30-55); VENOUS BLOOD PH 7.39 (7.32-7.43)
[2018-05-03 20:41] LABS: EOS % 0.5 % (1.5-5.0); GRAN # 1.7 (1.4-6.5); GRAN % 91.9 % (50.0-68.0); HEMOGLOBIN 7.4 g/dL (14.0-18.0); LYMPH # 0.1 (1.2-3.4); LYMPH % 6.5 % (22.0-35.0); MEAN CELL VOLUME 97.5 fl (80.0-105.0); MEAN CORPUSCULAR HEMOGLOBIN 30.8 pg (25.0-35.0); MEAN CORPUSCULAR HGB CONC 31.6 g/dl (31.0-37.0); MEAN PLATELET VOLUME 9.6 fl (7.0-11.0); MONO % 1.1 % (1.0-6.0); RBC 2.4 10^6/uL (3.5-6.1); RED CELL DISTRIBUTION WIDTH 17.8 % (11.5-14.5)
[2018-05-03 20:44] LABS: WHITE BLOOD COUNT 1.9 10^3/ul (4.5-11.0)
[2018-05-03 20:45] LABS: INR 1.57 (0.93-1.08); PARTIAL THROMBOPLASTIN TIME 31.5 Seconds (25.1-36.5); PROTHROMBIN TIME 18.1 SECONDS (9.4-12.5)
[2018-05-03] MEDS ORDERED: Sodium Chloride 0.9% 1,000 ML IV SCH ×2 (20:45→21:39)
[2018-05-03 20:49] LABS: ALB/GLOB RATIO 1.2 (1.1-1.8); ALBUMIN 3.4 g/dL (3.0-4.8); CALCIUM 8.2 mg/dL (8.4-10.5)
[2018-05-03 21:00] LABS: TROPONIN I 0.07 ng/mL
[2018-05-03 21:09] LABS: CK-MB 1.1 ng/mL (0.0-3.6)
[2018-05-04 02:35] VITALS: BMI 28.1
--- NOTE | 2018-05-04 06:44 | CP.PCM.PN ---
Subjective - Date & Time of Evaluation Date of Evaluation: 05/04/18 Time of Evaluation: 06:43 - Subjective Subjective: Nurse calls and tells that his temperature is 103*f. Has received Zosyn in the ER. Patient was seen at bedside. Complains of cough with yellow sputum. No urinary symptoms. No skin infection. Medical record was reviewed. This 68 year old male was admitted with fever, RML PNA. Has PMH of HTN,CAD,COPD, myelodysplastic syndrome. Objective - Vital Signs/Intake and Output Vital Signs (last 24 hours): Temp Pulse Resp BP Pulse Ox 99.1 F 100 H 18 116/70 91 L 05/04/18 01:49 05/04/18 02:00 05/04/18 01:49 05/04/18 01:49 05/04/18 01:38 - Medications Medications: Current Medications Acetaminophen (Tylenol 325mg Tab) 650 mg PO Q4H PRN PRN Reason: Fever >100.4 F Sodium Chloride (Sodium Chloride 0.9%) 1,000 mls @ 75 mls/hr IV .[id number] BERNARDINO - Labs Labs: PT 18.1 SECONDS (9.4-12.5) H 05/03/18 20:25 INR 1.57 (0.93-1.08) H 05/03/18 20:25 APTT 31.5 Seconds (25.1-36.5) 05/03/18 20:25 Micro Results 05/03/18 20:30 Blood-Venous Blood Culture - Preliminary NO GROWTH AFTER 24 HOURS 05/03/18 20:15 Blood-Venous Blood Culture - Preliminary NO GROWTH AFTER 24 HOURS Most Recent Lab Values WBC 1.2 10^3/ul (4.5-11.0) L* D 05/04/18 11:00 RBC 2.38 10^6/uL (3.5-6.1) L 05/04/18 11:00 Hgb 7.6 g/dL (14.0-18.0) L 05/04/18 11:00 Hct 23.3 % (42.0-52.0) L 05/04/18 11:00 MCV 97.9 fl (80.0-105.0) 05/04/18 11:00 MCH 31.9 pg (25.0-35.0) 05/04/18 11:00 MCHC 32.6 g/dl (31.0-37.0) 05/04/18 11:00 RDW 18.2 % (11.5-14.5) H 05/04/18 11:00 Plt Count 230 10^3/uL (120.0-450.0) 05/04/18 11:00 MPV 9.9 fl (7.0-11.0) 05/04/18 11:00 Gran % 90.8 % (50.0-68.0) H 05/04/18 11:00 Lymph % (Auto) 5.9 % (22.0-35.0) L 05/04/18 11:00 [place] % (Auto) 2.5 % (1.0-6.0) 05/04/18 11:00 Eos % (Auto) 0.8 % (1.5-5.0) L 05/04/18 11:00 Baso % (Auto) 0.0 % (0.0-3.0) 05/04/18 11:00 Gran # 1.08 (1.4-6.5) L 05/04/18 11:00 Lymph # (Auto) 0.1 (1.2-3.4) L 05/04/18 11:00 [place] # (Auto) 0.0 (0.1-0.6) L 05/04/18 11:00 Eos # (Auto) 0.0 (0.0-0.7) 05/04/18 11:00 Baso # (Auto) 0.00 K/mm3 (0.0-2.0) 05/04/18 11:00 PT 18.1 SECONDS (9.4-12.5) H 05/03/18 20:25 INR 1.57 (0.93-1.08) H 05/03/18 20:25 APTT 31.5 Seconds (25.1-36.5) 05/03/18 20:25 pO2 42 mm/Hg (30-55) 05/03/18 20:25 VBG pH 7.39 (7.32-7.43) 05/03/18 20:25 VBG pCO2 40.0 (40-60) 05/03/18 20:25 VBG HCO3 24.2 mmol/l (21-28) 05/03/18 20:25 VBG Total CO2 25.4 mmol.L (22-28) 05/03/18 20:25 VBG O2 Sat (Calc) 78.7 % (40-65) H 05/03/18 20:25 VBG Base Excess -0.7 mmol/L (0.0-2.0) L 05/03/18 20:25 VBG Potassium 4.3 mmol/L (3.6-5.2) 05/03/18 20:25 Sodium 136.0 mmol/L (132-148) 05/03/18 20:25 Chloride 106.0 mmol/L (98-107) 05/03/18 20:25 Glucose 133 mg/dl (75-110) H 05/03/18 20:25 Lactate 1.0 mmol/L (0.7-2.1) 05/03/18 20:25 FiO2 21.0 % 05/03/18 20:25 Sodium 140 mmol/L (132-148) 05/04/18 11:00 Potassium 4.9 mmol/L (3.6-5.0) 05/04/18 11:00 Chloride 106 mmol/L (98-107) 05/04/18 11:00 Carbon Dioxide 18 mmol/L (21-33) L 05/04/18 11:00 Anion Gap 21 (10-20) H 05/04/18 11:00 BUN 60 mg/dL (7-21) H 05/04/18 11:00 Creatinine 6.8 mg/dl (0.8-1.5) H 05/04/18 11:00 Est GFR ( Amer) 10 05/04/18 11:00 Est GFR (Non-Af Amer) 8 05/04/18 11:00 Random Glucose 110 mg/dL (70-110) 05/04/18 11:00 Calcium 8.0 mg/dL (8.4-10.5) L 05/04/18 11:00 Magnesium 2.5 mg/dL (1.7-2.2) H 05/03/18 20:25 Total Bilirubin 2.4 mg/dL (0.2-1.3) H 05/04/18 11:00 AST 41 U/L (17-59) 05/04/18 11:00 ALT 46 U/L (7-56) 05/04/18 11:00 Alkaline Phosphatase 62 U/L (38-126) 05/04/18 11:00 Lactate Dehydrogenase 593 U/L (333-699) 05/03/18 20:25 Total Creatine Kinase 370 U/L (35-230) H 05/03/18 20:25 CK-MB (CK-2) 1.1 ng/mL (0.0-3.6) 05/03/18 20:25 CK-MB (CK-2) % Cancelled 05/03/18 20:25 Troponin I 0.07 ng/mL D 05/03/18 20:25 NT-Pro-B Natriuret Pep 1990 pg/mL (0-450) H 05/03/18 20:25 Total Protein 6.1 g/dL (5.8-8.3) 05/04/18 11:00 Albumin 3.5 g/dL (3.0-4.8) 05/04/18 11:00 Globulin 2.7 gm/dL 05/04/18 11:00 Albumin/Globulin Ratio 1.3 (1.1-1.8) 05/04/18 11:00 Venous Blood Potassium 4.3 mmol/L (3.6-5.2) 05/03/18 20:25 Urine Color Yellow (YELLOW) 05/04/18 13:38 Urine Appearance Sl cloudy (CLEAR) 05/04/18 13:38 Urine pH 5.5 (4.7-8.0) 05/04/18 13:38 Ur Specific [place] 1.025 (1.005-1.035) 05/04/18 13:38 Urine Protein 100 mg/dL (<30 mg/dL) H 05/04/18 13:38 Urine Glucose (UA) Negative mg/dL (NEGATIVE) 05/04/18 13:38 Urine Ketones Negative mg/dL (NEGATIVE) 05/04/18 13:38 Urine Blood Small (NEGATIVE) H 05/04/18 13:38 Urine Nitrate Negative (NEGATIVE) 05/04/18 13:38 Urine Bilirubin Negative (NEGATIVE) 05/04/18 13:38 Urine Urobilinogen 2.0 E.U./dL (<1 E.U./dL) H 05/04/18 13:38 Ur Leukocyte Esterase Negative [place]/uL (NEGATIVE) 05/04/18 13:38 Urine RBC 0 - 2 /hpf (0-2) 05/04/18 13:38 Urine WBC 0 - 2 /hpf (0-6) 05/04/18 13:38 Ur Epithelial Cells 0 - 2 /hpf (0-5) 05/04/18 13:38 Urine Bacteria Mod (NEG) 05/04/18 13:38 Urine Eosinophils Negative 05/04/18 13:38 Ur Random Creatinine 220 mg/dL 05/04/18 13:38 Ur Random Sodium 20 meq/L 05/04/18 13:38 Blood Type A POSITIVE 05/04/18 12:40 Antibody Screen Negative 05/04/18 12:40 Crossmatch See Detail 05/04/18 12:40 BBK History Checked Patient has bt 05/04/18 12:40 - Constitutional Appears: Well, No Acute Distress - Head Exam Head Exam: ATRAUMATIC, NORMAL INSPECTION, NORMOCEPHALIC - Eye Exam Eye Exam: Normal appearance - ENT Exam ENT Exam: Normal External Ear Exam - Neck Exam Neck Exam: Normal Inspection - Respiratory Exam Respiratory Exam: NORMAL BREATHING PATTERN. absent: Accessory Muscle Use, Rales , Rhonchi, Wheezes - Cardiovascular Exam Cardiovascular Exam: absent: JVD - GI/Abdominal Exam GI & Abdominal Exam: absent: Distended - Rectal Exam Rectal Exam: Deferred - Exam Additional comments: Deferred. - Extremities Exam Extremities Exam: Normal Inspection - Back Exam Back Exam: NORMAL INSPECTION - Neurological Exam Neurological Exam: Alert, Awake, Oriented x3 - Psychiatric Exam Psychiatric exam: Normal Affect, Normal Mood - Skin Skin Exam: Normal Color Assessment and Plan - Assessment and Plan (Free Text) Assessment: Elevated temperature. RML. Renal insufficiency. HTN. CAD. Myelodysplastic syndrome. Plan: Tylenol as ordered. Continue present management.
--- NOTE | 2018-05-04 10:37 | RAD ---
HISTORY: 68yoM, cough/fever COMPARISON: Comparison chest dated 2017 FINDINGS: LUNGS: There has been progression of previously noted patchy infiltrate right mid to lower lung field which now appears more coalescent. Zero area of atelectasis of and/or developing infiltrate left lung base. PLEURA: No significant pleural effusion identified, no pneumothorax apparent. CARDIOVASCULAR: Cardiomegaly. OSSEOUS STRUCTURES: No significant abnormalities. VISUALIZED UPPER ABDOMEN: Normal. OTHER FINDINGS: None. IMPRESSION: More coalescent appearance infiltrate changes in the right mid to lower lung field progressed since prior study. New atelectasis and/or developing infiltrate left lung base
[2018-05-04 11:24] LABS: EOS % 0.8 % (1.5-5.0); GRAN # 1.08 (1.4-6.5); GRAN % 90.8 % (50.0-68.0); HEMOGLOBIN 7.6 g/dL (14.0-18.0); LYMPH # 0.1 (1.2-3.4); LYMPH % 5.9 % (22.0-35.0); MEAN CELL VOLUME 97.9 fl (80.0-105.0); MEAN CORPUSCULAR HEMOGLOBIN 31.9 pg (25.0-35.0); MEAN CORPUSCULAR HGB CONC 32.6 g/dl (31.0-37.0); MEAN PLATELET VOLUME 9.9 fl (7.0-11.0); MONO % 2.5 % (1.0-6.0); RBC 2.38 10^6/uL (3.5-6.1); RED CELL DISTRIBUTION WIDTH 18.2 % (11.5-14.5)
[2018-05-04 11:28] LABS: WHITE BLOOD COUNT 1.2 10^3/ul (4.5-11.0)
[2018-05-04 11:38] LABS: ALB/GLOB RATIO 1.3 (1.1-1.8); ALBUMIN 3.5 g/dL (3.0-4.8)
[2018-05-04] MEDS ORDERED: Dexamethasone 20 MG in Sodium Chloride 0.9% 50 ML IVPB ONE (11:41)
[2018-05-04] MEDS: Piperacillin/Tazobact 2.25gm 2.25 GM/100 ML BAG IVPB SCH ×2 (12:15→17:52)
[2018-05-04] MEDS ORDERED: Albuterol-Ipratrop 3 mg / 0.5 (3 ml) UD IH STA (13:58)
[2018-05-04] MEDS ORDERED: Albuterol-Ipratrop 3 mg / 0.5 (3 ml) UD ONE (14:04)
[2018-05-04 14:07] LABS: PH,URINE 5.5 (4.7-8.0); URINE BILIRUBIN NEGATIVE (NEGATIVE); URINE BLOOD SMALL (NEGATIVE); URINE GLUCOSE (UA) NEGATIVE (NEGATIVE); URINE LEUKOCYTE ESTERASE NEGATIVE Leu/uL (NEGATIVE); URINE PROTEIN 100 mg/dL (<30 mg/dL)
[2018-05-04 14:12] LABS: URINE APPEARANCE SL CLOUDY (CLEAR); URINE COLOR YELLOW (YELLOW)
[2018-05-04 14:16] LABS: URINE BACTERIA MOD (NEG); URINE EPITHELIAL CELLS 0 - 2 /hpf (0-5); URINE RBC 0 - 2 /hpf (0-2); URINE WBC 0 - 2 /hpf (0-6)
--- NOTE | 2018-05-04 14:32 | CARD ---
APPROVED REPORT EKG Measurement Heart [id number] <Conclusion> Sinus tachycardia with fusion complexes Nonspecific T wave abnormality Abnormal ECG
[2018-05-04] MEDS: Albuterol-Ipratrop 3 mg / 0.5 (3 ml) UD IH PRN (19:31)
--- NOTE | 2018-05-04 19:37 | HP ---
DATE OF EXAM: 05/04/2018 HISTORY OF PRESENT ILLNESS: The patient is a 68-year-old male admitted through the Emergency Department on 05/03/2018 with apparent right middle lobe and right lower lobe chest infiltrates. The patient had been complaining of chest pain. He denied any cough. No hemoptysis. He reports no fever, although yesterday, he had a fever of 103. He was started on IV antibiotics and admitted to the Telemetry Unit for further evaluation and management. PAST MEDICAL HISTORY: Includes myelodysplastic syndrome, currently followed by Dr. Good and is receiving Vidaza 5 days per month and has received this for the past 5 to 6 months. The patient was also noted to have an acutely elevated BUN and creatinine in the Emergency Department over the past 2 days and is currently on IV hydration. 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 PAST SURGICAL HISTORY The patient is status post excision of a large lipoma of the shoulder. CURRENT MEDICATIONS: Include enalapril 10 mg daily, Zocor 40 mg daily, and omeprazole 20 mg daily. ALLERGIES: THE PATIENT HAS NO KNOWN DRUG ALLERGIES. SOCIAL HISTORY: The patient has a history approximately 40 pack years of smoking. There is no alcohol or drug use. He is independent with ADLs and IADLs. REVIEW OF SYSTEMS: Essentially as above. There is no nausea, vomiting, or diarrhea. No melena. No bright red blood per rectum. No chest pain. No shortness of breath. No jaundice. PHYSICAL EXAMINATION: GENERAL: The patient is a well-developed male, in no acute distress. VITAL SIGNS: Blood pressure 116/70, temperature 99.1, pulse 87, respiratory rate 18. HEENT: Head is normocephalic, atraumatic. Pupils equal, round, and reactive to light. Extraocular movements intact. NECK: Supple with no thyromegaly. No carotid bruit. No adenopathy. LUNGS: Show a few crepitations and decreased breath sounds at the right base. HEART: Regular rate and rhythm. ABDOMEN: Soft, nontender. Bowel sounds are normoactive. EXTREMITIES: Without cyanosis, clubbing, or edema. NEUROLOGIC: The patient is awake and oriented x3 without focal sensory or motor deficits. SKIN: Warm and dry. LABORATORY DATA: WBC is 1.2, hemoglobin 7.6, hematocrit 23.3, platelets 230. Sodium 140, potassium 4.9, chloride 106, CO2 of 18, BUN 60, creatinine 6.8, calcium 8. Chest x-ray shows patchy infiltration in the right middle to right lower lobe. IMPRESSION: 1. Right middle and right lower lobe infiltrates, rule out pneumonia. 2. Acute renal failure. 3. History of coronary artery disease. 4. History of hypertension. 5. Hypercholesterolemia. 6. Chronic obstructive pulmonary disease. PLAN: The patient is admitted to the Telemetry Unit. The patient has been empirically started on Zosyn 2.275 g IV every 6 hours. We will obtain an Infectious Disease consult Dr. Lamb and Renal consult with Dr. Adamson. Cautious IV hydration. We will obtain a Hem/Onc consult with Dr. Good. Monitor electrolytes and renal function closely. Ruben Michelle JD/
--- NOTE | 2018-05-04 20:32 | CON ---
DATE: 05/04/2018 REASON FOR CONSULTATION: Acute kidney injury. HISTORY OF PRESENT ILLNESS: A 68-year-old male, previously unknown to me. The patient presented to the Emergency Room with complaints of cough, shortness of breath, dyspnea on exertion. The patient was in the Emergency Room on the 05/02/2018 also with similar complaints. Yesterday, the patient was found to have a temperature of 103. He was found to be somewhat hypotensive. He was also found to have a right lower lobe infiltrate. The patient was admitted for management of pneumonia. In addition, he was found to be in acute kidney injury. His creatinine was 1.8 on 05/02/2018 and yesterday his creatinine was 5.6. He was also found to be neutropenic and profoundly anemic. On questioning, the patient reports he had chemotherapy 2 weeks ago. He does not remember his chemotherapeutic agent. From the chart, it appears the patient has a history of multiple myeloma. He was getting Vidaza in December. Unclear what chemotherapeutic agent he is sitting now. The patient denies any nausea or vomiting. He denies any diarrhea. He reports his p.o. intake has been adequate. He denies any changes in his urine output. PAST MEDICAL AND SURGICAL HISTORY: Hypertension, CAD, PTCA and stents, chronic anemia, Multiple myeloma, history of pancytopenia, and history of anemia. FAMILY HISTORY: Noncontributory. SOCIAL HISTORY: Smoker, no alcohol use, no IV drug abuse. ALLERGIES: NO KNOWN DRUG ALLERGIES. MEDICATIONS AT HOME: Included Percocet, amlodipine 10, Flomax 0.4, simvastatin 40, Zofran, omeprazole, lisinopril 10, enalapril 10??, Plavix 75, and Lipitor 40. REVIEW OF SYSTEMS: All systems are reviewed, pertinent positives as mentioned in the history of presenting illness, rest unremarkable. PHYSICAL EXAMINATION: GENERAL: Elderly male sitting in bed, appears somewhat icteric. Somewhat confused. VITAL SIGNS: Blood pressure 116/70, heart rate 100, respiratory rate 18, temperature 99.1, T-max 103. HEENT: Normocephalic, atraumatic, positive pallor, positive icterus. NECK: Supple, no JVD. LUNGS: Bilateral equal air entry, crackles at right base, no rhonchi. CARDIAC: S1 and S2, regular rate and rhythm, no murmur, no rub. ABDOMEN: Distended, soft, nontender, bowel sounds present. EXTREMITIES: No lower extremity edema. INTAKE AND OUTPUT: Not charted. LABORATORY DATA: WBC 1.9, hemoglobin 7.4, hematocrit 23, platelets 239. Sodium 139, potassium 4.4, chloride 103, CO2 of 23, BUN 54, creatinine 5.6, glucose 128, calcium 8.2, magnesium 2.5. Total bilirubin 2, AST 58, ALT 43, albumin 3.4. Chest x-ray: Right lower lobe and mid lobe infiltrates, atelectasis of the left base. ASSESSMENT: 1. 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 According to the computer, his creatinine was 1.8 on the 05/02/2018 and yesterday, his creatinine was 5.6. His creatinine was 0.9 in 12/2017. 2. Neutropenia, severe anemia, likely secondary to recent chemotherapy. 3. Neutropenic sepsis. 4. Anion gap metabolic acidosis. 5. History of hypertension. 6. History of multiple myeloma syndrome, last chemotherapy 2 weeks ago. 7. History of coronary artery disease, percutaneous transluminal coronary angioplasty and stent. PLAN: 1. Check urinalysis, urine sodium, urine creatinine, and urine eosinophils. 2. Agree with fluid resuscitation. 3. Agree with empiric antibiotics, recommend dosing antibiotics for creatinine clearance of less than 10 mL/minute. 4. Avoid nephrotoxins. 5. Change IV fluids to D5W with 1 amp of sodium bicarbonate. 6. Monitor urine output closely. 7. check urine immunofixation Thank you for the courtesy of this consultation. We will follow this patient closely with you. Genevieve Adamson MD MIRANDA
[2018-05-05] MEDS: guaiFENesin DM 100 mg-10 mg/5 ml UD PO PRN (03:00)
[2018-05-05] MEDS: Albuterol-Ipratrop 3 mg / 0.5 (3 ml) UD IH PRN ×2 (07:13→11:19)
[2018-05-05] MEDS ORDERED: Vancomycin 1gm in NS 250ml 1 GM/250 ML BAG IVPB STA (07:23)
[2018-05-05] MEDS: Meropenem 500 MG in Sodium Chloride 0.9% 50 ML IVPB SCH ×2 (09:25→21:39)
--- NOTE | 2018-05-05 09:36 | CP.PCM.PN ---
Subjective - Date & Time of Evaluation Date of Evaluation: 05/05/18 Time of Evaluation: 09:25 - Subjective Subjective: denies chest pain, no SOB, slight cough, non-productive, nno hemoptysis Objective - Vital Signs/Intake and Output Vital Signs (last 24 hours): Temp Pulse Resp BP Pulse Ox 97.9 F 88 20 122/73 95 05/05/18 06:00 05/05/18 06:00 05/05/18 06:00 05/05/18 06:00 05/05/18 06:00 Intake and Output: 05/05/18 05/05/18 06:59 18:59 Intake Total 2515 Output Total 100 Balance 2415 - Medications Medications: Current Medications Acetaminophen (Tylenol 325mg Tab) 650 mg PO Q4H PRN PRN Reason: Fever >100.4 F Last Admin: 05/04/18 16:12 Dose: 650 mg Albuterol/Ipratropium (Duoneb 3 Mg/0.5 Mg (3 Ml) Ud) 3 ml IH [id number] PRN PRN Reason: Shortness of Breath Last Admin: 05/05/18 07:13 Dose: 3 ml Dexamethasone (Decadron Inj) 4 mg IVPB DAILY BERNARDINO Guaifenesin/Dextromethorphan (Robitussin Dm) 5 ml PO Q4H PRN PRN Reason: Cough Last Admin: 05/05/18 03:00 Dose: 5 ml Sodium Bicarbonate 50 meq/ (Sodium Chloride) 1,050 mls @ 75 mls/hr IV .Q14H BERNARDINO Last Admin: 05/05/18 08:24 Dose: 75 mls/hr Meropenem 500 mg/ Sodium (Chloride) 50 mls @ 100 mls/hr IVPB Q12 BERNARDINO PRN Reason: Protocol Stop: 05/14/18 10:01 Levofloxacin (Levaquin) 250 mg PO DAILY BERNARDINO PRN Reason: Protocol Stop: 05/12/18 10:01 - Labs Labs: 05/04/18 11:00 05/04/18 11:00 PT 18.1 SECONDS (9.4-12.5) H 05/03/18 20:25 INR 1.57 (0.93-1.08) H 05/03/18 20:25 APTT 31.5 Seconds (25.1-36.5) 05/03/18 20:25 - Respiratory Exam Respiratory Exam: Rhonchi - Cardiovascular Exam Cardiovascular Exam: REGULAR RHYTHM - GI/Abdominal Exam GI & Abdominal Exam: Soft, Normal Bowel Sounds - Extremities Exam Extremities Exam: Normal Inspection - Neurological Exam Neurological Exam: Alert, Awake - Skin Skin Exam: Dry, Warm Assessment and Plan (1) Acute renal insufficiency Status: Acute (2) Pneumonia Status: Acute (3) Myelodysplasia (myelodysplastic syndrome) Status: Chronic - Assessment and Plan (Free Text) Plan: continue IV Abx, renal US pending, monitor CBC/lytes
[2018-05-05] MEDS: Dexamethasone 4 mg/1 ml IVPB SCH (10:55)
--- NOTE | 2018-05-05 11:06 | US ---
PROCEDURE: Ultrasound of the Kidneys HISTORY: ARF COMPARISON: 05/24/2015. TECHNIQUE: Sonogram of the kidneys. FINDINGS: RIGHT KIDNEY: Measures: 12.4 x 5.9 cm. Normal in size, contour and echogenicity. No stone, solid mass lesion or hydronephrosis visualized. Lower pole simple cyst 1.9 x 2.9 cm. Upper pole cyst 1.1 x 1.7 cm. LEFT KIDNEY: Measures: Normal in size, contour and echogenicity. Normal in size contour and echogenicity No stone, solid mass lesion or hydronephrosis visualized. Upper pole cyst 4.9 x 4.2 cm. Midpole cyst 4.1 x 3.1 cm Cm. OTHER FINDINGS: None. IMPRESSION: No significant or acute findings to account for/ related to the clinical presentation. No significant interval change compared to the prior examination(s).
--- NOTE | 2018-05-05 12:10 | CP.PCM.CON ---
History of Present Illness - History of Present Illness History of Present Illness: 68 yp man with diagnosis of multiple myeloma, kappa light chain disease made in 06/04, on chemotherapy since, poor response to velcade, revlimid and more recently Kyprolis, admitted with pneumonia, fever and acute increase in serum creatinine. The patient was referred to [facility], for an autologous bone marrow transplant, but was sent back to the office for increasing light chains, for additional chemotherapy with Kyprolis. The patient currently feels weak, with VAUGHN, cough. He says he still has urine output, but the amount has declined. Past Patient History - Infectious Disease Hx of Infectious Diseases: None - Past Social History Smoking Status: Current Some Days Smoker - CARDIAC Hx Cardiac Disorders: Yes Hx Hypertension: Yes - PULMONARY Hx Respiratory Disorders: No - NEUROLOGICAL Hx Neurological Disorder: No - HEENT Hx HEENT Problems: No - RENAL Hx Chronic Kidney Disease: No - ENDOCRINE/METABOLIC Hx Endocrine Disorders: No - HEMATOLOGICAL/ONCOLOGICAL Hx Blood Disorders: Yes Hx Anemia: Yes Hx Chemotherapy: Yes Hx Leukemia: Yes - INTEGUMENTARY Hx Dermatological Problems: No - MUSCULOSKELETAL/RHEUMATOLOGICAL Hx Falls: No - GASTROINTESTINAL Hx Gastrointestinal Disorders: No - GENITOURINARY/GYNECOLOGICAL Hx Genitourinary Disorders: No Hx Prostate Problems: Yes (enlarged) - PSYCHIATRIC Hx Psychophysiologic Disorder: No Hx Substance Use: No - SURGICAL HISTORY Hx Cardiac Catheterization: Yes Hx Coronary Stent: Yes (x2 04/2014, x2 2011) Other/Comment: fatty tissue removed from left shoulder/ back - ANESTHESIA Hx Anesthesia: Yes Hx Anesthesia Reactions: No Hx Malignant Hyperthermia: No Meds Allergies/Adverse Reactions: Allergies Allergy/AdvReac Type Severity Reaction Status Date / Time No Known Allergies Allergy Verified 05/03/18 18:51 - Medications Medications: Current Medications Acetaminophen (Tylenol 325mg Tab) 650 mg PO Q4H PRN PRN Reason: Fever >100.4 F Last Admin: 05/04/18 16:12 Dose: 650 mg Albuterol/Ipratropium (Duoneb 3 Mg/0.5 Mg (3 Ml) Ud) 3 ml IH [id number] PRN PRN Reason: Shortness of Breath Last Admin: 05/05/18 11:19 Dose: 3 ml Dexamethasone (Decadron Inj) 4 mg IVPB DAILY BERNARDINO Guaifenesin/Dextromethorphan (Robitussin Dm) 5 ml PO Q4H PRN PRN Reason: Cough Last Admin: 05/05/18 03:00 Dose: 5 ml Sodium Bicarbonate 50 meq/ (Sodium Chloride) 1,050 mls @ 75 mls/hr IV .Q14H BERNARDINO Last Admin: 05/05/18 08:24 Dose: 75 mls/hr Meropenem 500 mg/ Sodium (Chloride) 50 mls @ 100 mls/hr IVPB Q12 BERNARDINO PRN Reason: Protocol Stop: 05/14/18 10:01 Levofloxacin (Levaquin) 250 mg PO DAILY BERNARDINO PRN Reason: Protocol Stop: 05/12/18 10:01 Results - Vital Signs Recent Vital Signs: Last Vital Signs Temp 97.9 F 05/05/18 06:00 Pulse 88 05/05/18 06:00 Resp 20 05/05/18 06:00 BP 122/73 05/05/18 06:00 Pulse Ox 95 05/05/18 06:00 - Labs Result Diagrams: 05/04/18 11:00 05/04/18 11:00 Labs: Laboratory Results - last 24 hr 05/04/18 05/04/18 05/04/18 12:40 13:38 13:38 Urine Color Urine Appearance Urine pH Ur Specific [place] Urine Protein Urine Glucose (UA) Urine Ketones Urine Blood Urine Nitrate Urine Bilirubin Urine Urobilinogen Ur Leukocyte Esterase Urine RBC Urine WBC Ur Epithelial Cells Urine Bacteria Urine Eosinophils Ur Random Creatinine 220 Ur Random Sodium 20 Blood Type A POSITIVE Antibody Screen Negative Crossmatch See Detail BBK History Checked Patient has bt 05/04/18 05/04/18 13:38 13:38 Urine Color Yellow Urine Appearance Sl cloudy Urine pH 5.5 Ur Specific [place] 1.025 Urine Protein 100 H Urine Glucose (UA) Negative Urine Ketones Negative Urine Blood Small H Urine Nitrate Negative Urine Bilirubin Negative Urine Urobilinogen 2.0 H Ur Leukocyte Esterase Negative Urine RBC 0 - 2 Urine WBC 0 - 2 Ur Epithelial Cells 0 - 2 Urine Bacteria Mod Urine Eosinophils Negative Ur Random Creatinine Ur Random Sodium Blood Type Antibody Screen Crossmatch BBK History Checked Assessment & Plan - Assessment and Plan (Free Text) Assessment: 68 yo man with multiple myeloma, kappa light chain disease, with clinical evidence of disease progression, with progressive pancytopenia and increased serum creatinine. For now will continue the Neupogen, PRN transfusion and high dose steroids. Will contact Sade regarding the patient's condition.
--- NOTE | 2018-05-05 13:18 | RAD ---
HISTORY: Pneumonia, increasing shortness of breath. COMPARISON: 05/03/2018 FINDINGS: LUNGS: Interval improvement without resolution right lower lobe infiltrate. PLEURA: No significant pleural effusion identified, no pneumothorax apparent. CARDIOVASCULAR: Cardiomegaly. No evidence of acute, significant cardiovascular disease. OSSEOUS STRUCTURES: No significant abnormalities. VISUALIZED UPPER ABDOMEN: Normal. OTHER FINDINGS: None. IMPRESSION: Interval improvement without complete resolution right lower lobe infiltrate.
[2018-05-05] MEDS: diltiaZEM IVPB 100mg in NS 100 ML IV PRN (15:30)
--- NOTE | 2018-05-05 19:38 | CON ---
DATE: 05/05/2018 LOCATION: The patient is in room 271, bed 2, seen earlier today. CHIEF COMPLAINT: Weakness times several days. HISTORY OF PRESENT ILLNESS: This is a 68-year-old male, known to me from previous admissions with history of coronary artery disease, BPH, anemia, myelodysplastic syndrome, status post chemotherapy in the past and hypertension, long history of smoking and anemia, who has had upper extremity and longstanding upper extremity shoulder mass, was seen through the emergency room with pneumonia. Infectious Disease consultation requested. The patient did have fevers and chills and cough. Cough is nonproductive. No chest pain at this time. Review of systems reveals no abdominal pain, diarrhea or constipation. No bright red blood per rectum. No melena. No dysuria. No frequency. No headaches or blurred vision. REVIEW OF SYSTEMS: Twelve-point review of systems performed. PAST MEDICAL HISTORY: Significant for hypertension, coronary artery disease, BPH, myelodysplastic syndrome, anemia. PAST SURGICAL HISTORY: Significant for cardiac catheterization with stent placement, once in 2011 and again in 2013. ALLERGIES: THE PATIENT HAS NO KNOWN ALLERGIES. MEDICATIONS AT HOME: Include enalapril, a statin and omeprazole. PHYSICAL EXAMINATION: GENERAL: The patient is in bed, in no acute distress. VITAL SIGNS: Did have a temperature of 103 and with heart rate of 85, which was up to 112 on admission with a respiratory rate of 20, which is up to 22, blood pressure is 117/70, oxygenation was at 95% saturation on admission, it was 85% saturated. HEENT: Examination of HEENT is unremarkable. NECK: Supple. LUNGS: Decreased breath sounds bilaterally. HEART: Normal S1, S2. ABDOMEN: Soft, nontender. No rebound or guarding. LABORATORY DATA: Laboratory examination reveals a white count of 1.9, hemoglobin of 7, platelets of 239. The patient has 91% granulocytosis today. Yesterday's white count was down to 1.2, hemoglobin of 7. Chemistries reveal the patient's creatinine is 5.6 on admission, it was 1.8 on 05/02/2018 and prior to that in 01/11/2018, it was 0.9 creatinine with a total bilirubin of 2.4 and a CK of 370 and BNP is 1990. Urinalysis is unremarkable. The patient had a chest x-ray, which was reported to be an infiltrate. The EKG showed a QTc of 442. Dr. Michelle's history and physical examination is reviewed. Dr. Michelle's progress note from today is reviewed. ASSESSMENT AND PLAN: This is a 68-year-old male with myelodysplastic syndrome, status post chemotherapy; coronary artery disease; hypertension; benign prostatic hypertrophy; smoking and anemia with fever of 103, tachycardia, dyspnea, hypoxia and renal failure and infiltrate. #1 is severe sepsis, healthcare-associated pneumonia with acute kidney injury and hypoxia. We will treat the patient with one dose of vancomycin. Meropenem adjusted for renal failure and Levaquin adjusted for renal failure. Pending blood cultures, urine cultures, procalcitonin, urine for Legionella antigen, acute renal failure workup, pancultures. We will make further recommendations upon availability of the initial results. We will follow closely with you. Benson Lamb MD
--- NOTE | 2018-05-06 03:26 | CP.PCM.PN ---
Subjective - Date & Time of Evaluation Date of Evaluation: 05/06/18 Time of Evaluation: 03:24 - Subjective Subjective: Patient was seen because he had heart rate of 130's. Has no complaints. Denies chest pain, sob, nausea, sweating , palpitation. Later on, he had short run of non sustained ventricular tachycardia. Is already on cardizem drip at 5 ml / hr. Medical record was reviewed. 68 year old male was admitted with fever, RML PNA. PMH:CAD, HTN,COPD, myelodysplastic syndrome. Objective - Vital Signs/Intake and Output Vital Signs (last 24 hours): Temp Pulse Resp BP Pulse Ox 97.6 F 116 H 20 131/67 94 L 05/06/18 00:01 05/06/18 00:01 05/06/18 00:01 05/06/18 00:01 05/06/18 00:01 Intake and Output: 05/05/18 05/06/18 18:59 06:59 Intake Total 660 Output Total 150 Balance 510 - Medications Medications: Current Medications Acetaminophen (Tylenol 325mg Tab) 650 mg PO Q4H PRN PRN Reason: Fever >100.4 F Last Admin: 05/04/18 16:12 Dose: 650 mg Albuterol/Ipratropium (Duoneb 3 Mg/0.5 Mg (3 Ml) Ud) 3 ml IH [id number] PRN PRN Reason: Shortness of Breath Last Admin: 05/05/18 11:19 Dose: 3 ml Dexamethasone (Decadron Inj) 4 mg IVPB DAILY [facility] Last Admin: 05/05/18 10:55 Dose: 4 mg Guaifenesin/Dextromethorphan (Robitussin Dm) 5 ml PO Q4H PRN PRN Reason: Cough Last Admin: 05/05/18 03:00 Dose: 5 ml Sodium Bicarbonate 50 meq/ (Sodium Chloride) 1,050 mls @ 75 mls/hr IV .Q14H [facility] Last Admin: 05/06/18 01:19 Dose: 75 mls/hr Meropenem 500 mg/ Sodium (Chloride) 50 mls @ 100 mls/hr IVPB Q12 [facility] PRN Reason: Protocol Stop: 05/14/18 10:01 Last Admin: 05/05/18 21:39 Dose: 100 mls/hr diltiaZEM IVPB 100mg in NS (Cardizem 100mg In Ns) 100 mls @ 5 mls/hr IV .Q20H PRN; Protocol; 5 MG/HR PRN Reason: TITRATE PER MD ORDER Last Admin: 05/05/18 15:30 Dose: 5 mg/hr, 5 mls/hr Levofloxacin (Levaquin) 250 mg PO DAILY [facility] PRN Reason: Protocol Stop: 05/12/18 10:01 Last Admin: 05/05/18 10:55 Dose: 250 mg - Labs Labs: 05/04/18 11:00 05/04/18 11:00 PT 18.1 SECONDS (9.4-12.5) H 05/03/18 20:25 INR 1.57 (0.93-1.08) H 05/03/18 20:25 APTT 31.5 Seconds (25.1-36.5) 05/03/18 20:25 Last Vital Signs Temp 97.6 F 05/06/18 00:01 Pulse 116 H 05/06/18 00:01 Resp 20 05/06/18 00:01 BP 131/67 05/06/18 00:01 Pulse Ox 94 L 05/06/18 00:01 - Constitutional Appears: Well, No Acute Distress - Head Exam Head Exam: ATRAUMATIC, NORMAL INSPECTION, NORMOCEPHALIC - Eye Exam Eye Exam: Normal appearance - ENT Exam ENT Exam: Normal External Ear Exam - Neck Exam Neck Exam: Normal Inspection - Respiratory Exam Respiratory Exam: NORMAL BREATHING PATTERN - Cardiovascular Exam Cardiovascular Exam: absent: JVD - GI/Abdominal Exam GI & Abdominal Exam: absent: Distended - Rectal Exam Rectal Exam: Deferred - Exam Additional comments: Deferred. - Extremities Exam Extremities Exam: Normal Inspection - Back Exam Back Exam: NORMAL INSPECTION - Neurological Exam Neurological Exam: Alert, Awake, Oriented x3 - Psychiatric Exam Psychiatric exam: Normal Affect, Normal Mood - Skin Skin Exam: Normal Color Assessment and Plan - Assessment and Plan (Free Text) Assessment: Atrial fibrillation with RVR. HTN. CAD. Myelodysplastic syndrome. PNA.-RML. COPD. Renal insufficiency. Indeterminate troponin level. Plan: Cardizem 10 mg IV bolus was given. Later on, Cardizem 20 mg IV bolus was given. After which, heart rate came down to below 100 per minute. F/U AM labs.Add Mg,Phos, trop levels. Continue present management.
[2018-05-06 07:02] LABS: GRAN # 4.21 (1.4-6.5); GRAN % 86.8 % (50.0-68.0); HEMOGLOBIN 8.7 g/dL (14.0-18.0); LYMPH # 0.1 (1.2-3.4); LYMPH % 1.9 % (22.0-35.0); MEAN CELL VOLUME 93.6 fl (80.0-105.0); MEAN CORPUSCULAR HEMOGLOBIN 30.7 pg (25.0-35.0); MEAN CORPUSCULAR HGB CONC 32.8 g/dl (31.0-37.0); MEAN PLATELET VOLUME 10.4 fl (7.0-11.0); MONO # 0.6 (0.1-0.6); MONO % 11.3 % (1.0-6.0); PLATELET COUNT 294 10^3/uL (120.0-450.0); RBC 2.83 10^6/uL (3.5-6.1); RED CELL DISTRIBUTION WIDTH 18.6 % (11.5-14.5); WHITE BLOOD COUNT 4.9 10^3/ul (4.5-11.0)
[2018-05-06 07:12] LABS: ALB/GLOB RATIO 1.1 (1.1-1.8); ALBUMIN 3.2 g/dL (3.0-4.8); CALCIUM 7.7 mg/dL (8.4-10.5)
[2018-05-06 07:13] LABS: TROPONIN I 0.01 ng/mL
[2018-05-06] MEDS: diltiaZEM IVPB 100mg in NS 100 ML IV PRN ×2 (07:56→16:09)
[2018-05-06 08:12] LABS: BAND 2 % (0-2); LYMPHOCYTE 1 % (22.0-35.0); MONOCYTE 3 % (1.0-6.0); NEUTROPHIL 94 % (50.0-70.0); POIKILOCYTOSIS SLIGHT
[2018-05-06 08:13] LABS: ANISOCYTOSIS SLIGHT; PLATELET ESTIMATE NORMAL (NORMAL)
[2018-05-06] MEDS: Meropenem 500 MG in Sodium Chloride 0.9% 50 ML IVPB SCH ×2 (09:23→21:26)
[2018-05-06] MEDS: Dexamethasone 4 mg/1 ml IVPB SCH (09:27)
--- NOTE | 2018-05-06 09:51 | CP.PCM.PN ---
Subjective - Date & Time of Evaluation Date of Evaluation: 05/06/18 Time of Evaluation: 09:40 - Subjective Subjective: denies cough, no SOB, urinating OK Objective - Vital Signs/Intake and Output Vital Signs (last 24 hours): Temp Pulse Resp BP Pulse Ox 97.7 F 128 H 20 130/68 97 05/06/18 06:00 05/06/18 08:51 05/06/18 06:00 05/06/18 06:00 05/06/18 06:00 Intake and Output: 05/06/18 05/06/18 06:59 18:59 Intake Total 1400 100 Output Total 100 Balance 1300 100 - Medications Medications: Current Medications Acetaminophen (Tylenol 325mg Tab) 650 mg PO Q4H PRN PRN Reason: Fever >100.4 F Last Admin: 05/04/18 16:12 Dose: 650 mg Albuterol/Ipratropium (Duoneb 3 Mg/0.5 Mg (3 Ml) Ud) 3 ml IH [id number] PRN PRN Reason: Shortness of Breath Last Admin: 05/05/18 11:19 Dose: 3 ml Dexamethasone (Decadron Inj) 4 mg IVPB DAILY [facility] Last Admin: 05/06/18 09:27 Dose: 4 mg Guaifenesin/Dextromethorphan (Robitussin Dm) 5 ml PO Q4H PRN PRN Reason: Cough Last Admin: 05/05/18 03:00 Dose: 5 ml Sodium Bicarbonate 50 meq/ (Sodium Chloride) 1,050 mls @ 75 mls/hr IV .Q14H [facility] Last Admin: 05/06/18 01:19 Dose: 75 mls/hr Meropenem 500 mg/ Sodium (Chloride) 50 mls @ 100 mls/hr IVPB Q12 [facility] PRN Reason: Protocol Stop: 05/14/18 10:01 Last Admin: 05/06/18 09:23 Dose: 100 mls/hr diltiaZEM IVPB 100mg in NS (Cardizem 100mg In Ns) 100 mls @ 5 mls/hr IV .Q20H PRN; Protocol; 5 MG/HR PRN Reason: TITRATE PER MD ORDER Last Admin: 05/06/18 07:56 Dose: 5 mg/hr, 5 mls/hr Levofloxacin (Levaquin) 250 mg PO DAILY [facility] PRN Reason: Protocol Stop: 05/12/18 10:01 Last Admin: 05/06/18 09:27 Dose: 250 mg - Labs Labs: 05/06/18 06:00 05/06/18 06:00 PT 18.1 SECONDS (9.4-12.5) H 05/03/18 20:25 INR 1.57 (0.93-1.08) H 05/03/18 20:25 APTT 31.5 Seconds (25.1-36.5) 05/03/18 20:25 - Respiratory Exam Respiratory Exam: Rhonchi, NORMAL BREATHING PATTERN - Cardiovascular Exam Cardiovascular Exam: REGULAR RHYTHM - GI/Abdominal Exam GI & Abdominal Exam: Soft, Normal Bowel Sounds - Extremities Exam Extremities Exam: Normal Inspection - Neurological Exam Neurological Exam: Alert, Awake - Skin Skin Exam: Dry, Warm Assessment and Plan (1) Acute renal insufficiency Status: Acute (2) Pneumonia Status: Acute (3) Myelodysplasia (myelodysplastic syndrome) Status: Chronic (4) Multiple myeloma Status: Chronic - Assessment and Plan (Free Text) Plan: renal/onc/ID consults appreciated, renal US negative, continue IV Abx, monitor renal function
[2018-05-06] MEDS ORDERED: Barium Sulfate Susp 2.1% w/v, 2.0% w/w 450 mL Bottle PO ONE (12:30)
[2018-05-06] MEDS ORDERED: Sodium Bicarbonate 8.4% 100 MEQ in Dextrose 5% In Water 1,000 ML IV SCH (13:50)
--- NOTE | 2018-05-06 15:04 | PN ---
DATE: 05/06/2018 SUBJECTIVE: The patient is seen lying in bed. He is awake. He is alert. He denies any shortness of breath. He complains of cough. He reports he is bringing up some white phlegm. He denies any nausea or vomiting. PHYSICAL EXAMINATION: GENERAL: Elderly male, lying in bed. VITAL SIGNS: Blood pressure 125/78, heart rate 60, respiratory rate 18, temperature 98. HEENT: Normocephalic, atraumatic, positive pallor. NECK: Supple, no JVD. LUNGS: Bilateral equal air entry, bilateral equal expansion, occasional rhonchi, no rales. CARDIAC: S1 and S2, regular rate and rhythm, no murmur, no rub. ABDOMEN: Distended, soft, nontender, bowel sounds present. EXTREMITIES: No lower extremity edema. INTAKE AND OUTPUT: . LABORATORY DATA: WBC 4.9, hemoglobin 8.7, hematocrit 27, platelets 294. Sodium 141, potassium 5, chloride 105, CO2 of 18, BUN 94, creatinine 7.6, glucose 130, calcium 7.7, phosphorus 6.1, albumin 3.2, corrected calcium is 8.3, magnesium 2.5. Urinalysis: Yellow, slightly cloudy, pH 5.5, specific gravity 1.025, protein 100, blood small, rbc's 0-2, wbc's 0-2, urine eosinophils negative. Blood culture, gram-negative heladio from 05/03/2018 in one bottle. Sputum culture, yeast. Urine culture, no growth so far. CHEST X-RAY: Interval improvement without complete resolution of right lower lobe infiltrate. RENAL ULTRASOUND: No hydronephrosis, normal size kidneys. CURRENT MEDICATIONS: Cardizem at 5 mg per hour, Decadron 4 mg daily, DuoNeb, Levaquin, meropenem 500 every 12, Robitussin, half-normal saline with 50 mEq of sodium bicarbonate at 75, Tylenol. ASSESSMENT: 1. 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 2. History of multiple myeloma, unresponsive to treatment, recent chemotherapy 10 days ago. 3. Neutropenic sepsis. 4. Severe anemia. 5. Hypocalcemia. 6. Hyperphosphatemia. 7. History of hypertension. 8. History of coronary artery disease, percutaneous transluminal coronary angioplasty and stents. PLAN: 1. Change IV fluids to D5W with 2 amps of bicarb at 100. 2. No uremic signs or symptoms at this time, but with renal function worsening, may need renal replacement therapy soon. 3. Monitor urine output, currently Lang is out, check bladder scan at 05:00 p.m. If more than 150 ml of urine in bladder, replace Lang. 4. Avoid nephrotoxins. 5. Dose all antibiotics for creatinine clearance less than 10. 6. Continue empiric antibiotics. Genevieve Adamson MD
--- NOTE | 2018-05-06 15:41 | CP.PCM.PN ---
Subjective - Date & Time of Evaluation Date of Evaluation: 05/06/18 Time of Evaluation: 13:40 - Subjective Subjective: Patient is feeling better, no fevers, less cough, no abdominal pain, no diarrhea , no nausea. Objective - Vital Signs/Intake and Output Vital Signs (last 24 hours): Temp Pulse Resp BP Pulse Ox 97.7 F 123 H 20 130/68 97 05/06/18 06:00 05/06/18 06:00 05/06/18 06:00 05/06/18 06:00 05/06/18 06:00 Intake and Output: 05/06/18 05/06/18 06:59 18:59 Intake Total 1400 100 Output Total 100 Balance 1300 100 - Medications Medications: Current Medications Acetaminophen (Tylenol 325mg Tab) 650 mg PO Q4H PRN PRN Reason: Fever >100.4 F Last Admin: 05/04/18 16:12 Dose: 650 mg Albuterol/Ipratropium (Duoneb 3 Mg/0.5 Mg (3 Ml) Ud) 3 ml IH [id number] PRN PRN Reason: Shortness of Breath Last Admin: 05/05/18 11:19 Dose: 3 ml Dexamethasone (Decadron Inj) 4 mg IVPB DAILY [facility] Last Admin: 05/05/18 10:55 Dose: 4 mg Guaifenesin/Dextromethorphan (Robitussin Dm) 5 ml PO Q4H PRN PRN Reason: Cough Last Admin: 05/05/18 03:00 Dose: 5 ml Sodium Bicarbonate 50 meq/ (Sodium Chloride) 1,050 mls @ 75 mls/hr IV .Q14H [facility] Last Admin: 05/06/18 01:19 Dose: 75 mls/hr Meropenem 500 mg/ Sodium (Chloride) 50 mls @ 100 mls/hr IVPB Q12 [facility]INO PRN Reason: Protocol Stop: 05/14/18 10:01 Last Admin: 05/05/18 21:39 Dose: 100 mls/hr diltiaZEM IVPB 100mg in NS (Cardizem 100mg In Ns) 100 mls @ 5 mls/hr IV .Q20H PRN; Protocol; 5 MG/HR PRN Reason: TITRATE PER MD ORDER Last Admin: 05/06/18 07:56 Dose: 5 mg/hr, 5 mls/hr Levofloxacin (Levaquin) 250 mg PO DAILY [facility] PRN Reason: Protocol Stop: 05/12/18 10:01 Last Admin: 05/05/18 10:55 Dose: 250 mg - Labs Labs: 05/06/18 06:00 05/06/18 06:00 PT 18.1 SECONDS (9.4-12.5) H 05/03/18 20:25 INR 1.57 (0.93-1.08) H 05/03/18 20:25 APTT 31.5 Seconds (25.1-36.5) 05/03/18 20:25 - Constitutional Appears: Chronically Ill - Head Exam Head Exam: NORMAL INSPECTION - ENT Exam ENT Exam: Mucous Membranes Moist - Neck Exam Neck Exam: absent: Meningismus - Respiratory Exam Respiratory Exam: Decreased Breath Sounds - Cardiovascular Exam Cardiovascular Exam: +S1, +S2 - GI/Abdominal Exam GI & Abdominal Exam: Soft. absent: Tenderness Assessment and Plan - Assessment and Plan (Free Text) Plan: Assessment Severe sepsis with acute on chronic renal failure due to gram negative bacilli bacteremia, consider due to HCAP, R/O intra-abdominal infection R/O TB myelodysplastic syndrome S/P chemotherapy CAD HTN significant smoking history Plan Continue Merrem and Levaquin (day 2) pending identification and sensitivities of the gram negative bacilli in the blood - repeat blood cx are negative follow up sputum AFB patient does not have indwelling venous catheters of devices - will get CT A/P will monitor clinically
[2018-05-06] MEDS: Sodium Bicarbonate 8.4% 100 MEQ in Dextrose 5% In Water 1,000 ML IV SCH (16:10)
[2018-05-06] MEDS: Heparin25000 units/250ml 1/2NS 25,000 UNITS/250 ML BAG IV PRN (16:49)
[2018-05-06] MEDS: Dexamethasone 20 mg / 5 ml Inj IVP SCH (17:56)
--- NOTE | 2018-05-06 21:09 | CT ---
EXAM: CT Abdomen and Pelvis Without Intravenous Contrast EXAM DATE/TIME: 05/06/2018 12:28 PM CLINICAL HISTORY: The patient age is 68 years old and is male; Signs and symptoms; Other: Neutropenic; Additional info: Rule out intra-abdominal infection Facility exam id and description: Ct abdpels abd pelvis po contrast only TECHNIQUE: Axial computed tomography images of the abdomen and pelvis without intravenous contrast. All CT scans at this facility use one or more dose reduction techniques, viz.: automated exposure control; ma/kV adjustment per patient size (including targeted exams where dose is matched to indication; i.e. head); or iterative reconstruction technique. Coronal and sagittal reformatted images were created and reviewed. COMPARISON: CT - ABD PELVIS PO CONTRAST ONLY 2017-06-02 11:51 FINDINGS: Lung bases: Patchy consolidations are visualized within the right middle lobe, which are new. These consolidations are suggestive of atelectatic change or infiltrates. There is a small right pleural effusion with atelectatic change or infiltrate at the right lung base, which are also new. Heart: There is mild cardiomegaly. There is coronary artery calcification. ABDOMEN: Liver: Scattered hypodense hepatic lesions are identified, without overall progression. Within the right hepatic lobe, there is a 1.5 x 0.9 cm hypodense probable cyst or hemangioma. Some of these lesions are too small to characterize further. Gallbladder and bile ducts: No calcified stones. No ductal dilation. Pancreas: Normal contour. No ductal dilation. Spleen: Artifact limits evaluation of the spleen. No splenomegaly. Adrenals: No mass. Kidneys and ureters: Bilateral perinephric stranding is again visualized, which is nonspecific. This stranding extends inferiorly into the pelvis on each side. Hypodense probable left renal cysts are visualized, the largest at the upper pole of the left kidney measuring 5.0 x 5.1 cm. This measured lesion has mildly increased in size. There is no hydronephrosis bilaterally. Stomach and bowel: Colonic diverticula are identified. Mild pericolonic stranding seen adjacent to the descending colon, likely due to to extension of perinephric stranding, although diverticulitis cannot be excluded. PELVIS: Appendix: Incompletely visualized, without visualized distention. Bladder: See below. Reproductive: There is significant enlargement of the prostate which causes elevation of the bladder floor. There is a large left hydrocele partially visualized. A tiny calcification is seen within the prostate. ABDOMEN and PELVIS: Intraperitoneal space: Stable abnormal density is again visualized within the right anterior pelvis, which may be postoperative or inflammatory. Bones/joints: Hypertrophic degenerative changes are noted within the spine. Vasculature: No abdominal aortic aneurysm. Lymph nodes: No significant retroperitoneal or intrapelvic lymphadenopathy. IMPRESSION: 1. Scattered hypodense hepatic lesions are identified, without overall progression. Within the right hepatic lobe, there is a 1.5 x 0.9 cm hypodense probable cyst or hemangioma. Some of these lesions are too small to characterize further. 2. Bilateral perinephric stranding is again visualized, which is nonspecific. This stranding extends inferiorly into the pelvis on each side. Hypodense probable left renal cysts are visualized, the largest at the upper pole of the left kidney measuring 5.0 x 5.1 cm. This measured lesion has mildly increased in size. 3. There is significant enlargement of the prostate which causes elevation of the bladder floor. 4. Colonic diverticula are identified. Mild pericolonic stranding seen adjacent to the descending colon, likely due to to extension of perinephric stranding, although diverticulitis cannot be excluded. Clinical correlation is recommended. 5. Stable abnormal density is again visualized within the right anterior pelvis, which may be postoperative or inflammatory. 6. There is a large left scrotal hydrocele partially visualized. 7. Patchy consolidations are visualized within the right middle lobe, which are new. These consolidations are suggestive of atelectatic change or infiltrates. There is a small right pleural effusion with atelectatic change or infiltrate at the right lung base, which are also new. A follow-up chest CT is recommended. 8. There is mild cardiomegaly. 9. Incidental/non-acute findings are described above.
[2018-05-07] MEDS: Sodium Bicarbonate 8.4% 100 MEQ in Dextrose 5% In Water 1,000 ML IV SCH ×2 (01:57→12:05)
[2018-05-07] MEDS: Albuterol-Ipratrop 3 mg / 0.5 (3 ml) UD IH PRN ×2 (02:31→22:05)
--- NOTE | 2018-05-07 03:41 | PN ---
DATE: 05/06/2018 LOCATION: The patient in room 271, bed 2. REASON FOR CONSULTATION: Coronary artery disease, new-onset atrial fibrillation, history of multiple myeloma, history of stent insertion, pulmonary hypertension, high cholesterol, HISTORY OF PRESENT ILLNESS: A 68-year-old male, admitted through emergency room with finding of pneumonia, and anemia and low WBC. The patient denied chest pain or palpitation. He says his breathing is stable. The patient has developed aches and pain, and fever of 103. The patient when came in, had a multifocal atrial rhythm on EKG. Later on, he developed atrial fibrillation with rapid rate. Denies any palpitations or any cardiac symptoms at present. PAST MEDICAL HISTORY: Positive for coronary artery disease, history of stent insertion in 2008 and then another stent insertion in 2013 at [facility]. The patient has history of hypertension, pulmonary hypertension, high cholesterol. The patient was found to have also multiple myeloma in somewhere of 2017. He has been following with Dr. Good and receiving Vidaza 5 days per month since the last 5 to 6 months. The patient on admission also found to have high BUN and creatinine. The patient is known to have COPD secondary to tobacco abuse. PAST SURGICAL HISTORY: The patient had removal of lipoma from the shoulder. ALLERGIES: THE PATIENT DENIES ANY ALLERGIES. SOCIAL HISTORY: The patient had been a smoker for many years. He says he stopped smoking 3 to 4 months ago. Denies drinking. Denies drug abuse. MEDICATIONS: The patient's list of medications at home, Zocor 40 daily, enalapril 10 mg daily, omeprazole 20 mg daily. REVIEW OF SYSTEMS: All the systems reviewed. Positives mentioned in the history, others were negative. PHYSICAL EXAMINATION: VITAL SIGNS: Blood pressure 125/78, respirations 18, pulse 60, temperature 98. HEENT: Head is normocephalic. Eyes: Pupils normal. Conjunctivae pale. NECK: JVP low. Carotids equal. THORAX: AP diameter normal. LUNGS: No rales. CARDIOVASCULAR: S1 and S2. ABDOMEN: Soft. No tenderness. No organomegaly. Bowel sound normal. EXTREMITIES: No clubbing. No cyanosis. LABORATORY DATA: WBC on 05/04/2018 was 1.2 and today is 4.9; hemoglobin was 7.6 on 05/04/2018, today is 8.7; hematocrit on 05/04/2018 was 23.3 and today it is 26.5; platelet 294. Granulocytes 86.8, lymphocytes are low at 1.9, monocytes elevated at 11.3. Sodium 141, potassium 5, BUN 94, creatinine 7.6. On 05/03/2018, BUN was 54, creatinine 5.6. Random glucose 130, calcium 7.7, phosphorus 6.1, magnesium 2.5. AST and ALT normal. Total protein normal. Albumin is normal. Troponin negative x2. DR-icy-S-natriuretic peptide 1989. Chest x-ray showed interval improvement without resolution of right lower lobe infiltrate, cardiomegaly. EKG on admission showed multifocal atrial rhythm, nonspecific ST-T changes. Now monitor is showing atrial fibrillation, rapid rate. Echo: at Office: Normal Size LV. Normal LV Systolic Function with Ej.Fr: 55-60%. Flattening of Septum suggestive of RV Vol. Overload.RVSP:64-Moderate Pulm.Hypertension. Mod. to Severe TR, Mild Mitral Regurge. Stress Test: April: Negative for Ischaemia, LV Ej.Fr: 55%. DIAGNOSES: Atrial fibrillation, rapid rate, new onset; right middle and right lower lobe infiltrate; acute renal failure; history of coronary artery disease, status post stent insertion in the past; hypertension; hyperlipidemia; chronic obstructive pulmonary disease; multiple myeloma; leukopenia; anemia; pulmonary hypertension; high cholesterol; coronary artery disease, stent insertion in 2008, stent insertion in 2013; ex-smoker. PLAN: The patient is on 5 mg Cardizem drip, we will increase it to 10 mg because the patient still goes at a higher rate and we will also add Lopressor 50 b.i.d. We will also start heparin because of atrial fibrillation and we will monitor the patient. The patient already on dexamethasone 4 mg IV daily that needs to also changed to dexamethasone 20 mg IV daily. Albuterol and ipratropium hand nebulizer therapy, Granix 480 mcg subcu daily. We will start on heparin drip after bolus of 3000 units because the patient is in atrial fibrillation. Levaquin 250 mg daily, metoprolol 50 mg b.i.d., meropenem 500 mg IV every 12 hours. IV fluid with sodium bicarb, 5% glucose and water 100 mL an hour. We will continue present therapy and we will follow with you. Sindhu Bustos MD [facility] # [id number] MIRANDA
[2018-05-07] MEDS: diltiaZEM IVPB 100mg in NS 100 ML IV PRN (04:25)
--- NOTE | 2018-05-07 07:40 | CP.PCM.PN ---
Subjective - Date & Time of Evaluation Date of Evaluation: 05/07/18 Time of Evaluation: 06:40 - Subjective Subjective: Lying in bed watching TV, awake, alert,no distress Reason for consultation and follow up: Cardiac evaluation for rapid atrial fibrillation,came in due to cough and fever diagnosed with pneumonia.History of coronary artery disease with stents,hypertension Seen and examined by me and Dr. Caldera Objective - Vital Signs/Intake and Output Vital Signs (last 24 hours): Temp Pulse Resp BP Pulse Ox 97.6 F 85 20 123/81 98 05/07/18 06:00 05/07/18 06:00 05/07/18 06:00 05/07/18 06:00 05/07/18 06:00 Intake and Output: 05/07/18 05/07/18 06:59 18:59 Intake Total 320 Output Total 420 Balance -100 - Medications Medications: Current Medications Acetaminophen (Tylenol 325mg Tab) 650 mg PO Q4H PRN PRN Reason: Fever >100.4 F Last Admin: 05/04/18 16:12 Dose: 650 mg Albuterol/Ipratropium (Duoneb 3 Mg/0.5 Mg (3 Ml) Ud) 3 ml IH [id number] PRN PRN Reason: Shortness of Breath Last Admin: 05/07/18 02:31 Dose: 3 ml Dexamethasone (Decadron Inj) 20 mg IVP DAILY [facility] Last Admin: 05/06/18 17:56 Dose: 20 mg Guaifenesin/Dextromethorphan (Robitussin Dm) 5 ml PO Q4H PRN PRN Reason: Cough Last Admin: 05/05/18 03:00 Dose: 5 ml Meropenem 500 mg/ Sodium (Chloride) 50 mls @ 100 mls/hr IVPB Q12 [facility] PRN Reason: Protocol Stop: 05/14/18 10:01 Last Admin: 05/06/18 21:26 Dose: 100 mls/hr Sodium Bicarbonate 100 meq/ (Dextrose) 1,100 mls @ 100 mls/hr IV .Q11H [facility] Last Admin: 05/07/18 01:57 Dose: 100 mls/hr diltiaZEM IVPB 100mg in NS (Cardizem 100mg In Ns) 100 mls @ 10 mls/hr IV .Q10H PRN; Protocol; 10 MG/HR PRN Reason: TITRATE PER MD ORDER Last Admin: 05/07/18 04:25 Dose: 10 mg/hr, 10 mls/hr Heparin Sodium/Sodium Chloride (Heparin 62652 Units/250ml 1/2 Normal Saline) 25 ,000 units in 250 mls @ 9.181 mls/hr IV .Q24H PRN; Protocol; 11 UNITS/KG/HR PRN Reason: ADJUST RATE PER PROTOCOL Last Titration: 05/07/18 01:21 Dose: 15 units/kg/hr, 12.519 mls/hr Levofloxacin (Levaquin) 250 mg PO DAILY [facility] PRN Reason: Protocol Stop: 05/12/18 10:01 Last Admin: 05/06/18 09:27 Dose: 250 mg Metoprolol Tartrate (Lopressor) 50 mg PO BRKDIN [facility] Last Admin: 05/06/18 16:11 Dose: 50 mg - Labs Labs: 05/06/18 06:00 05/06/18 06:00 PT 18.1 SECONDS (9.4-12.5) H 05/03/18 20:25 INR 1.57 (0.93-1.08) H 05/03/18 20:25 APTT 30.3 Seconds (25.1-36.5) 05/07/18 00:40 - Constitutional Appears: No Acute Distress - Head Exam Head Exam: NORMOCEPHALIC - Eye Exam Eye Exam: Normal appearance - ENT Exam ENT Exam: Mucous Membranes Moist - Respiratory Exam Respiratory Exam: Decreased Breath Sounds, NORMAL BREATHING PATTERN - Cardiovascular Exam Cardiovascular Exam: Irregular Rhythm, +S1, +S2 Additional comments: Afib-telemetry 70's - GI/Abdominal Exam GI & Abdominal Exam: Soft, Normal Bowel Sounds - Exam Additional comments: continent - Extremities Exam Extremities Exam: Normal Capillary Refill - Neurological Exam Neurological Exam: Alert, Awake, Oriented x3 - Psychiatric Exam Psychiatric exam: Normal Affect, Normal Mood - Skin Skin Exam: Intact, Normal Color, Warm Assessment and Plan - Assessment and Plan (Free Text) Assessment: A 68 year old male who came in to the ER due to cough and fever, diagnosed with pneumonia. Had new onset rapid atrial fibrillation,thus cardiac consult was called for. History of coronary artery disease with stents,() hypertension.pulmonary hypertension,hypercholesterolemia. Plan: Controlled atrial fibrillation On Cardizem drip 10 mg /hr Will switch to oral Cardizem Denies chest pain On Heparin drip, titrate to protocol Continue IV antibiotics for pneumonia On Meropenem and Levaquin On Lopressor 50 mg BID Continue current management Continue current medications Will follow up Plan and treatment discussed with Dr. Caldera
[2018-05-07] MEDS: Meropenem 500 MG in Sodium Chloride 0.9% 50 ML IVPB SCH ×2 (09:21→21:15)
--- NOTE | 2018-05-07 09:33 | CP.PCM.PN ---
Subjective - Date & Time of Evaluation Date of Evaluation: 05/07/18 Time of Evaluation: 09:20 - Subjective Subjective: denies chest pain, no SOB Objective - Vital Signs/Intake and Output Vital Signs (last 24 hours): Temp Pulse Resp BP Pulse Ox 97.6 F 74 20 111/77 98 05/07/18 06:00 05/07/18 09:22 05/07/18 06:00 05/07/18 09:22 05/07/18 06:00 Intake and Output: 05/07/18 05/07/18 06:59 18:59 Intake Total 320 102 Output Total 420 Balance -100 102 - Medications Medications: Current Medications Acetaminophen (Tylenol 325mg Tab) 650 mg PO Q4H PRN PRN Reason: Fever >100.4 F Last Admin: 05/04/18 16:12 Dose: 650 mg Albuterol/Ipratropium (Duoneb 3 Mg/0.5 Mg (3 Ml) Ud) 3 ml IH [id number] PRN PRN Reason: Shortness of Breath Last Admin: 05/07/18 02:31 Dose: 3 ml Dexamethasone (Decadron Inj) 20 mg IVP DAILY [facility] Last Admin: 05/06/18 17:56 Dose: 20 mg Diltiazem HCl (Cardizem) 60 mg PO TID [facility] Last Admin: 05/07/18 09:22 Dose: 60 mg Guaifenesin/Dextromethorphan (Robitussin Dm) 5 ml PO Q4H PRN PRN Reason: Cough Last Admin: 05/05/18 03:00 Dose: 5 ml Meropenem 500 mg/ Sodium (Chloride) 50 mls @ 100 mls/hr IVPB Q12 [facility] PRN Reason: Protocol Stop: 05/14/18 10:01 Last Admin: 05/07/18 09:21 Dose: 100 mls/hr Sodium Bicarbonate 100 meq/ (Dextrose) 1,100 mls @ 100 mls/hr IV .Q11H [facility] Last Admin: 05/07/18 01:57 Dose: 100 mls/hr Heparin Sodium/Sodium Chloride (Heparin 02632 Units/250ml 1/2 Normal Saline) 25 ,000 units in 250 mls @ 9.181 mls/hr IV .Q24H PRN; Protocol; 11 UNITS/KG/HR PRN Reason: ADJUST RATE PER PROTOCOL Last Titration: 05/07/18 08:40 Dose: 19 units/kg/hr, 15.858 mls/hr Levofloxacin (Levaquin) 250 mg PO DAILY [facility] PRN Reason: Protocol Stop: 05/12/18 10:01 Last Admin: 05/07/18 09:22 Dose: 250 mg Metoprolol Tartrate (Lopressor) 50 mg PO BRKDIN [facility] Last Admin: 05/07/18 07:52 Dose: 50 mg - Labs Labs: 05/06/18 06:00 05/06/18 06:00 PT 18.1 SECONDS (9.4-12.5) H 05/03/18 20:25 INR 1.57 (0.93-1.08) H 05/03/18 20:25 APTT 33.5 Seconds (25.1-36.5) 05/07/18 07:15 - Respiratory Exam Respiratory Exam: Rhonchi - Cardiovascular Exam Cardiovascular Exam: REGULAR RHYTHM - GI/Abdominal Exam GI & Abdominal Exam: Soft, Normal Bowel Sounds - Extremities Exam Extremities Exam: Normal Inspection - Neurological Exam Neurological Exam: Alert, Awake - Skin Skin Exam: Dry, Warm Assessment and Plan (1) Acute renal insufficiency Status: Acute (2) Pneumonia Status: Acute (3) Myelodysplasia (myelodysplastic syndrome) Status: Chronic (4) Multiple myeloma Status: Chronic - Assessment and Plan (Free Text) Plan: continue renal/heme-onc follow-up, IV Abx, will obtain consult Dr. Sandra Man for renal bx.as renal function worsening
[2018-05-07] MEDS: Dexamethasone 20 mg / 5 ml Inj IVP SCH (10:28)
[2018-05-07 11:24] LABS: BASO # 0.01 K/mm3 (0.0-2.0); BASO % 0.2 % (0.0-3.0); GRAN # 5.9 (1.4-6.5); GRAN % 97.8 % (50.0-68.0); LYMPH # 0.1 (1.2-3.4); LYMPH % 1.8 % (22.0-35.0); MEAN CELL VOLUME 94.2 fl (80.0-105.0); MEAN CORPUSCULAR HGB CONC 32.9 g/dl (31.0-37.0); MEAN PLATELET VOLUME 10.3 fl (7.0-11.0); MONO % 0.2 % (1.0-6.0); RBC 2.58 10^6/uL (3.5-6.1); RED CELL DISTRIBUTION WIDTH 18.7 % (11.5-14.5)
[2018-05-07 11:58] LABS: ALB/GLOB RATIO 1.3 (1.1-1.8); ALBUMIN 2.8 g/dL (3.0-4.8)
[2018-05-07 13:53] LABS: FREE KAPPA SERUM 3940.3 mg/L (3.3-19.4)
[2018-05-07] MEDS ORDERED: Lidocaine 1% Inj (20ml) ONE (14:44)
[2018-05-07] MEDS ORDERED: Midazolam 2 MG/2 ML VIAL ONE (14:44)
[2018-05-07] MEDS ORDERED: Sodium Chloride 0.45% 1,000 ML IV SCH (15:30)
--- NOTE | 2018-05-07 17:57 | CT ---
PROCEDURE: CT guided left renal cortex biopsy. HISTORY: Multiple myeloma. Acute renal failure. Needs biopsy with electron microscopy PHYSICIAN(S): Flako Man MD. TECHNIQUE: The relative risks and indications of the procedure were explained to the patient and consent obtained. The patient was placed in a right decubitus position on the CT scanner and preliminary images through the kidneys obtained. Conscious sedation and monitoring were provided throughout the procedure by a nurse. Multiple renal cysts are present. A left lateral approach was selected and the area prepped and draped in the usual sterile fashion. 1% Xylocaine was used to anesthetize the skin and soft tissues. A 17-gauge guiding needle was advanced into the left renal cortex laterally and inferiorly. Its position was confirmed with CT. Using coaxial technique, multiple core biopsies were obtained. The postprocedure images show no evidence of significant hemorrhage. IMPRESSION: 1. CT-guided left renal cortex biopsy as described above.
--- NOTE | 2018-05-07 19:47 | PN ---
DATE: 05/07/2018 SUBJECTIVE: Patient is currently seen just having returned from having a renal biopsy. Patient appears to be short-winded, perhaps secondary to increased exertion to move from the stretcher to his bed. He does remain anemic. MEDICATIONS: Medication list reviewed. Patient is on Cardizem, IV Decadron, DuoNeb, heparin, Levaquin, Lopressor, meropenem, Robitussin, IV fluid with sodium bicarbonate, sodium half normal saline which will be discontinued, Tylenol, and Zofran p.r.n. OBJECTIVE: INTAKE AND OUTPUT: Intake is 900, output is 1820. VITAL SIGNS: Blood pressure 91/56, temperature 97.9, respiratory rate is 22 with a pulse of 65, pulse ox 99%. HEENT: Exam shows him to be normocephalic, atraumatic. Conjunctivae are pale. Sclerae are nonicteric. NECK: Supple. No neck vein distention. CHEST: Actually clear to auscultation and percussion with no rales, rhonchi, or wheezing. CARDIOVASCULAR: Shows a regular rate and rhythm with a soft systolic murmur, left lower sternal border. ABDOMEN: Soft. Bowel sounds normal. No rebound, guarding, or masses. EXTREMITIES: Show no lower extremity cyanosis, clubbing, or edema. IMAGING STUDIES: Abdominal CT scan showed lung infiltrates and an enlarged prostate. Kidneys on the abdominal CT scan showed bilateral perinephric stranding, nonspecific finding; and bilateral renal cysts. Renal ultrasound showed bilateral renal cysts, no hydronephrosis, normal echogenicity, normal sized kidneys. LABORATORY DATA: CBC: White blood cell count up to 6 from a low of 1.2. Hemoglobin is 8, up from a low of 7.4; he is status post 1 unit of packed red blood cells. Hemoglobin yesterday, however, was 8.7. Platelet count is 300,000. Coags: PTT 33.5 as patient had a renal biopsy today. Heparin was placed on hold. Chemistries: Potassium today 5.2, sodium 138. CO2 is 18. BUN on steroids is up to 114. Creatinine is down from a high of 7.6 to 7.2. Glucose is 148. Calcium 7, phosphorus 6.8. Magnesium level is 2.4. Liver enzymes: Mild elevation of ALT, otherwise normal. Albumin is 2.8. Urines were unremarkable. Urine sodium 20 with a urine creatinine of 220 with a low fractional secretion of sodium. Urine Too's stain was negative. Extremely high free kappa light chains with a high [id number] light chain ratio. Microbiology: Sputum was positive for yeast. One blood culture was positive for gram-negative heladio with no further isolation or sensitivity. Urine cultures were negative. Followup blood cultures were all negative. Blood bank: Patient is status post 1 unit of packed red blood cells. ASSESSMENT: 1. Acute renal failure in a patient who earlier this year had a normal BUN and creatinine. 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 Renal biopsy is pending. Uric acid level will be ordered. No evidence for myeloma kidney based on imaging studies. No evidence for hypercalcemia. No evidence for obstructive uropathy. Concern here is with worsening renal parameters. Patient might require acute dialysis. Unfortunately, the hospital he is presently located cannot provide this service. Perhaps transfer out to [facility] where his main physicians are for his myeloma are located. 2. History of multiple myeloma. Patient being followed by a local [facility], but most of his care is being directed through [facility]. 3. History of neutropenic sepsis, gram-negative heladio in the blood, perhaps nonspecific, has followup blood cultures were all negative. Nevertheless, patient will continue on antibiotic therapy. He does have pneumonia. 4. Secondary hyperparathyroidism. Low calcium level at 7, corrects to normal with an albumin of 2.8. Phosphorus level remains elevated. Patient will be started on binder therapy. 5. History of hypertension. Blood pressure is in low normal range. Patient is currently off all blood pressure medications. He had been on an BHAVNA inhibitor and a calcium channel jagdeep in the outpatient setting. 6. History of atherosclerotic heart disease status post percutaneous transluminal coronary angioplasty and stent, appears to be stable. PLAN: 1. A renal biopsy was done prior to my seeing patient. These results likely will not be back until perhaps the earliest tomorrow night. Suspicion is that of kappa light chain injury secondary to refractory myeloma. 2. Should patient's situation worsen, he would require acute dialysis and as much as he cannot receive dialysis in his current hospital, I would suggest transfer to [facility] where patient's main Hematology group is located. Dialysis can be provided there if necessary. 3. Continue empiric antibiotic therapy for his pneumonia and note, gram-negative heladio in his blood, but no further sensitivity or isolation done. 4. Secondary hyperparathyroidism. Patient will start binder therapy. 5. Obtain uric acid level. 6. Continue to monitor accurate I's and O's. 7. We will switch patient back from half-normal saline to IV fluid with sodium bicarbonate in light of his borderline low CO2 level and mild hyperkalemia. 8. We will discuss with Dr. Michelle our recommendations. Joe Husain MD
[2018-05-07] MEDS: guaiFENesin DM 100 mg-10 mg/5 ml UD PO PRN (22:06)
--- NOTE | 2018-05-08 00:05 | PN ---
DATE: 05/07/2018 SUBJECTIVE: Patient is in bed, in no acute distress, nontoxic. Patient is seen earlier this morning in 271, bed 2. PHYSICAL EXAMINATION: VITAL SIGNS: Temperature is 97, blood pressure is 112/70, respiratory rate of 20, heart rate of 62. HEENT: Unremarkable. NECK: Supple. LUNGS: Have decreased breath sounds. HEART: Normal S1, S2. ABDOMEN: Soft, nontender. LABORATORY DATA: Reveals a white count of 6000, 97% polys and granulocyte count. Chemistry reveal a BUN of 114, creatinine of 7.2, procalcitonin is 39. urinalysis is noted. Immunology is noted. Serology, urine for Legionella antigen is negative. The blood cultures initially have gram-negative rods and a urine culture is negative. The identification and sensitivity had gram-negative rods, from 05/04/2018 not available and the sputum culture has yeast and mycobacterial preliminary cultures from April. The smear is negative for acid fast and repeat blood cultures are negative. Review of orders reveals the patient is on p.o. Levaquin and IV meropenem. ASSESSMENT AND PLAN: This is a 68-year-old male who is seen earlier this morning with severe sepsis with [id number] renal failure with gram-negative healdio bacteremia. Neutropenia has resolved in a patient with myelodysplastic syndrome status post chemotherapy, coronary artery disease; hypertension, day number 3 of meropenem and Levaquin, and the patient had a CAT scan-directed biopsy by Dr. Flako Man of the renal cortex. Dr. Michelle's note is reviewed. Patient had a CAT scan of the abdomen and pelvis yesterday. Will complete 4 to 7 days of antibiotics. Consider gram-negative rods. Awaiting for identification and sensitivity of the gram-negative heladio blood bacteremia. We will follow closely with you. Benson Lamb MD
[2018-05-08 05:49] LABS: HEMOGLOBIN 7.8 g/dL (14.0-18.0); MEAN CELL VOLUME 93.1 fl (80.0-105.0); MEAN CORPUSCULAR HEMOGLOBIN 30.1 pg (25.0-35.0); MEAN CORPUSCULAR HGB CONC 32.4 g/dl (31.0-37.0); MEAN PLATELET VOLUME 9.3 fl (7.0-11.0); RBC 2.59 10^6/uL (3.5-6.1); RED CELL DISTRIBUTION WIDTH 18.5 % (11.5-14.5)
[2018-05-08] MEDS: Albuterol-Ipratrop 3 mg / 0.5 (3 ml) UD IH PRN ×2 (06:10→15:04)
[2018-05-08 06:28] LABS: URIC ACID 13.7 mg/dL (3.5-8.5)
--- NOTE | 2018-05-08 06:36 | CP.PCM.PN ---
Subjective - Date & Time of Evaluation Date of Evaluation: 05/08/18 Time of Evaluation: 06:30 - Subjective Subjective: Denies chest pain,denies shortness of breath,lying in bed watching TV, awake, alert Reason for consultation and follow up: Cardiac evaluation for rapid atrial fibrillation,came in due to cough and fever diagnosed with pneumonia.History of coronary artery disease with stents,hypertension Seen and examined by me and Dr. Caldera Objective - Vital Signs/Intake and Output Vital Signs (last 24 hours): Temp Pulse Resp BP Pulse Ox 97.8 F 68 20 127/81 96 05/08/18 06:11 05/08/18 06:11 05/08/18 06:11 05/08/18 06:11 05/08/18 06:11 Intake and Output: 05/07/18 05/08/18 18:59 06:59 Intake Total 1509 1200 Balance 1509 1200 - Medications Medications: Current Medications Acetaminophen (Tylenol 325mg Tab) 650 mg PO Q4H PRN PRN Reason: Fever >100.4 F Last Admin: 05/04/18 16:12 Dose: 650 mg Albuterol/Ipratropium (Duoneb 3 Mg/0.5 Mg (3 Ml) Ud) 3 ml IH [id number] PRN PRN Reason: Shortness of Breath Last Admin: 05/08/18 06:10 Dose: 3 ml Calcium Acetate (Phoslo) 667 mg PO WM [facility] Last Admin: 05/07/18 17:32 Dose: 667 mg Dexamethasone (Decadron Inj) 20 mg IVP DAILY [facility] Last Admin: 05/07/18 10:28 Dose: 20 mg Diltiazem HCl (Cardizem) 60 mg PO TID [facility] Last Admin: 05/07/18 17:32 Dose: 60 mg Guaifenesin/Dextromethorphan (Robitussin Dm) 5 ml PO Q4H PRN PRN Reason: Cough Last Admin: 05/07/18 22:06 Dose: 5 ml Meropenem 500 mg/ Sodium (Chloride) 50 mls @ 100 mls/hr IVPB Q12 [facility] PRN Reason: Protocol Stop: 05/14/18 10:01 Last Admin: 05/07/18 21:15 Dose: 100 mls/hr Sodium Bicarbonate 100 meq/ (Dextrose) 1,100 mls @ 100 mls/hr IV .Q11H [facility] Last Admin: 05/07/18 12:05 Dose: Not Given Heparin Sodium/Sodium Chloride (Heparin 16800 Units/250ml 1/2 Normal Saline) 25 ,000 units in 250 mls @ 9.181 mls/hr IV .Q24H PRN; Protocol; 11 UNITS/KG/HR PRN Reason: ADJUST RATE PER PROTOCOL Last Titration: 05/07/18 08:40 Dose: 19 units/kg/hr, 15.858 mls/hr Levofloxacin (Levaquin) 250 mg PO DAILY [facility] PRN Reason: Protocol Stop: 05/12/18 10:01 Last Admin: 05/07/18 09:22 Dose: 250 mg Metoprolol Tartrate (Lopressor) 50 mg PO BRKDIN [facility] Last Admin: 05/07/18 17:00 Dose: Not Given Ondansetron HCl (Zofran Inj) 4 mg IVP Q6H PRN PRN Reason: Nausea/Vomiting - Labs Labs: 05/08/18 05:30 05/07/18 11:00 PT 18.1 SECONDS (9.4-12.5) H 05/03/18 20:25 INR 1.57 (0.93-1.08) H 05/03/18 20:25 APTT 27.8 Seconds (25.1-36.5) 05/07/18 16:42 - Constitutional Appears: No Acute Distress - Head Exam Head Exam: NORMOCEPHALIC - Eye Exam Eye Exam: Normal appearance - ENT Exam ENT Exam: Mucous Membranes Moist - Respiratory Exam Respiratory Exam: Decreased Breath Sounds, Clear to Ausculation Bilateral, NORMAL BREATHING PATTERN - Cardiovascular Exam Cardiovascular Exam: Irregular Rhythm, +S1, +S2 Additional comments: Telemetry- Afib 70's - GI/Abdominal Exam GI & Abdominal Exam: Soft, Normal Bowel Sounds - Exam Additional comments: continent/urinal - Extremities Exam Extremities Exam: Normal Capillary Refill - Neurological Exam Neurological Exam: Alert, Awake, Oriented x3 - Psychiatric Exam Psychiatric exam: Normal Affect, Normal Mood - Skin Skin Exam: Intact, Normal Color, Warm Assessment and Plan - Assessment and Plan (Free Text) Assessment: A 68 year old male who came in to the ER due to cough and fever, diagnosed with pneumonia. Had new onset rapid atrial fibrillation,thus cardiac consult was called for. History of coronary artery disease with stents,() hypertension.pulmonary hypertension,hypercholesterolemia. 05/07/18.CT guided renal biopsy done. On IV antibiotics for pneumonia. Plan: Controlled rate atrial fibrillation Telemetry Afib 70-90's/min Cardizem IV switch to oral Cardizem Denies chest pain On Heparin drip, titrate to protocol Post renal CT guided biopsy yesterday On Meropenem and Levaquin for pneumonia On Lopressor 50 mg BID Continue current management Continue current medications Will follow up Plan and treatment discussed with Dr. Caldera
[2018-05-08] MEDS: Heparin25000 units/250ml 1/2NS 25,000 UNITS/250 ML BAG IV PRN ×2 (08:17→23:40)
[2018-05-08] MEDS: Meropenem 500 MG in Sodium Chloride 0.9% 50 ML IVPB SCH (10:21)
[2018-05-08] MEDS: Dexamethasone 20 mg / 5 ml Inj IVP SCH (10:22)
[2018-05-08] MEDS: Sodium Bicarbonate 8.4% 100 MEQ in Dextrose 5% In Water 1,000 ML IV SCH ×5 (11:58→17:38)
--- NOTE | 2018-05-08 12:32 | CARD ---
APPROVED REPORT EKG Measurement Heart [id number] <Conclusion> Atrial fibrillation Moderate Ventricular Rate. Abnormal ECG
--- NOTE | 2018-05-08 14:28 | CP.PCM.PN ---
Subjective - Date & Time of Evaluation Date of Evaluation: 05/08/18 Time of Evaluation: 14:00 - Subjective Subjective: feeling better today, denies chest pain, no SOB Objective - Vital Signs/Intake and Output Vital Signs (last 24 hours): Temp Pulse Resp BP Pulse Ox 97.6 F 77 19 105/65 96 05/08/18 12:00 05/08/18 12:00 05/08/18 12:00 05/08/18 12:00 05/08/18 06:11 Intake and Output: 05/08/18 05/08/18 06:59 18:59 Intake Total 1800 Output Total 550 Balance 1250 - Medications Medications: Current Medications Acetaminophen (Tylenol 325mg Tab) 650 mg PO Q4H PRN PRN Reason: Fever >100.4 F Last Admin: 05/04/18 16:12 Dose: 650 mg Albuterol/Ipratropium (Duoneb 3 Mg/0.5 Mg (3 Ml) Ud) 3 ml IH [id number] PRN PRN Reason: Shortness of Breath Last Admin: 05/08/18 06:10 Dose: 3 ml Calcium Acetate (Phoslo) 667 mg PO WM [facility] Last Admin: 05/08/18 11:58 Dose: 667 mg Dexamethasone (Decadron Inj) 20 mg IVP DAILY [facility] Last Admin: 05/08/18 10:22 Dose: 20 mg Diltiazem HCl (Cardizem) 60 mg PO TID [facility] Last Admin: 05/08/18 10:23 Dose: 60 mg Guaifenesin/Dextromethorphan (Robitussin Dm) 5 ml PO Q4H PRN PRN Reason: Cough Last Admin: 05/07/18 22:06 Dose: 5 ml Meropenem 500 mg/ Sodium (Chloride) 50 mls @ 100 mls/hr IVPB Q12 [facility] PRN Reason: Protocol Stop: 05/14/18 10:01 Last Admin: 05/08/18 10:21 Dose: 100 mls/hr Sodium Bicarbonate 100 meq/ (Dextrose) 1,100 mls @ 100 mls/hr IV .Q11H [facility] Last Admin: 05/08/18 12:00 Dose: Not Given Heparin Sodium/Sodium Chloride (Heparin 62807 Units/250ml 1/2 Normal Saline) 25 ,000 units in 250 mls @ 9.181 mls/hr IV .Q24H PRN; Protocol; 11 UNITS/KG/HR PRN Reason: ADJUST RATE PER PROTOCOL Last Admin: 05/08/18 08:17 Dose: 19 units/kg/hr, 15.858 mls/hr Levofloxacin (Levaquin) 250 mg PO DAILY [facility] PRN Reason: Protocol Stop: 05/12/18 10:01 Last Admin: 05/08/18 10:23 Dose: 250 mg Metoprolol Tartrate (Lopressor) 25 mg PO BID [facility] Last Admin: 05/08/18 09:21 Dose: Not Given Ondansetron HCl (Zofran Inj) 4 mg IVP Q6H PRN PRN Reason: Nausea/Vomiting - Labs Labs: 05/08/18 05:30 05/07/18 11:00 PT 18.1 SECONDS (9.4-12.5) H 05/03/18 20:25 INR 1.57 (0.93-1.08) H 05/03/18 20:25 APTT 27.8 Seconds (25.1-36.5) 05/07/18 16:42 - Respiratory Exam Respiratory Exam: Rhonchi, Wheezes - Cardiovascular Exam Cardiovascular Exam: Irregular Rhythm - GI/Abdominal Exam GI & Abdominal Exam: Soft, Normal Bowel Sounds - Extremities Exam Extremities Exam: Normal Inspection - Neurological Exam Neurological Exam: Alert, Awake - Skin Skin Exam: Dry, Warm Assessment and Plan (1) Acute renal insufficiency Status: Acute (2) Pneumonia Status: Acute (3) Myelodysplasia (myelodysplastic syndrome) Status: Chronic (4) Multiple myeloma Status: Chronic - Assessment and Plan (Free Text) Plan: continue heme-onc/renal follow-up, monitor kidney function, may require HD, renal bx pending
[2018-05-08 14:30] LABS: BASO # 0.01 K/mm3 (0.0-2.0); BASO % 0.1 % (0.0-3.0); GRAN # 10.16 (1.4-6.5); GRAN % 97.9 % (50.0-68.0); HEMOGLOBIN 7.9 g/dL (14.0-18.0); LYMPH # 0.2 (1.2-3.4); LYMPH % 1.8 % (22.0-35.0); MEAN CELL VOLUME 92.8 fl (80.0-105.0); MEAN CORPUSCULAR HEMOGLOBIN 31.5 pg (25.0-35.0); MEAN CORPUSCULAR HGB CONC 33.9 g/dl (31.0-37.0); MEAN PLATELET VOLUME 9.6 fl (7.0-11.0); MONO % 0.2 % (1.0-6.0); RBC 2.51 10^6/uL (3.5-6.1); RED CELL DISTRIBUTION WIDTH 18.4 % (11.5-14.5); WHITE BLOOD COUNT 10.4 10^3/ul (4.5-11.0)
[2018-05-08 14:46] LABS: CALCIUM 7.1 mg/dL (8.4-10.5)
--- NOTE | 2018-05-08 15:47 | PN ---
DATE: 05/08/2018 SUBJECTIVE: The patient is seen lying in bed. He is awake. He is alert. He is comfortable. He denies any shortness of breath, although he appears a little bit dyspneic. He denies any nausea or vomiting. Appetite is good. He reports he ate his lunch. He has no asterixis. PHYSICAL EXAMINATION: GENERAL: Elderly male, lying in bed. VITAL SIGNS: Blood pressure 105/65, heart rate 77, respiratory rate 19, temperature 97.6. HEENT: Normocephalic, atraumatic, positive pallor. NECK: Supple, no JVD. LUNGS: Bilateral equal air entry, bilateral equal expansion. CARDIAC: S1 and S2, regular rate and rhythm, no murmur, no rub. ABDOMEN: Obese, distended, soft, nontender, bowel sounds present. EXTREMITIES: Trace lower extremity edema. INTAKE AND OUTPUT: 3357/550. LABORATORY DATA: WBC 10, hemoglobin 7.9, hematocrit 23, platelets 302. Sodium 136, potassium 5.1, chloride 95, CO2 of 23, BUN 129, creatinine 7.1, glucose 152, calcium 7.1, phosphorus 7.5, magnesium 2.3, albumin 2.8, corrected calcium is 8.1. Blood cultures, Klebsiella in one bottle. Sputum culture, yeast. EKG, atrial fibrillation. Kidney biopsy done yesterday. CURRENT MEDICATIONS: Cardizem 60 t.i.d., Decadron, DuoNeb, Levaquin, Lopressor 25 b.i.d., meropenem 500 every 12, PhosLo with meals, IV fluids with sodium bicarbonate at 100 mL per hour, Tylenol, Zofran. ASSESSMENT: 1. 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 2. Severe anemia, ? gastrointestinal blood loss superimposed on chronic anemia from myeloma. 3. Status post neutropenic sepsis. 4. Hypocalcemia, hyperphosphatemia, secondary hyperparathyroidism. 5. Hypertension. 6. Coronary artery disease, history of percutaneous transluminal coronary angioplasty and stents. PLAN: 1. Decrease IV fluids to 80 mL/hour. 2. Check stool occults x3. 3. Check iron studies. 4. Currently, the patient does not have any uremic signs or symptoms, his creatinine is somewhat improved, so we will hold off on dialysis. 5. Followup kidney biopsy report. 6. Agree with plans to consider transfer to [facility] where the patient is receiving his treatment for multiple myeloma. We will discuss with Dr. Michelle. 7. Continue phosphate binder. 8. Check intact PTH levels. Past medical and surgical history, family history, social history, review of systems all reviewed and unchanged unless mentioned in the history of presenting illness. Genevieve Adamson MD
[2018-05-08 16:38] LABS: IRON 108 ug/dL (45-180)
[2018-05-08 16:48] LABS: % IRON SATURATION 48 % (20-55); TOTAL IRON BINDING CAPACITY 224 ug/dL (261-462)
[2018-05-08] MEDS: Cefpodoxime (Vantin) 100 mg Tab PO SCH (17:36)
--- NOTE | 2018-05-08 18:00 | PN ---
DATE: 05/08/2018 SUBJECTIVE: The patient is in room 271, bed 2. He was seen earlier this morning. No fevers and no chills. PHYSICAL EXAMINATION VITAL SIGNS: Temperature is 98, blood pressure is 120/70, respiratory rate 16. HEENT: Unremarkable. NECK: Supple. LUNGS: Have decreased breath sounds. HEART: Normal S1 and S2. ABDOMEN: Soft, nontender. LABORATORY EXAMINATION: Reveals a white count of 10,000, hemoglobin of 7, platelets of 302. Chemistries reveals a BUN of 129, creatinine 7.1. Urinalysis is noted. Serology is noted. Urine for Legionella antigen is negative. Microbiology reveals the patient has urine culture, no growth. Mycobacterium, no acid fast. Sputum culture, yeast. Blood culture does have Klebsiella ozaenae, which is pansensitive, sensitive to quinolones. Repeat blood cultures are negative. The patient's EKG from today shows a QTc of 479. An EKG from 05/03/2018 shows a QTc of 442. Review of orders reveals the patient to be on p.o. Levaquin and meropenem. ASSESSMENT AND PLAN: A 68-year-old male who was seen earlier this morning, the patient with severe sepsis, [id number] renal failure with Klebsiella bacteremia, neutropenia, which is also resolved in a patient with myelodysplastic syndrome status post chemotherapy with a patient with coronary artery disease, hypertension, day #4 of meropenem and Levaquin. The patient had a CAT scan-directed biopsy. We would discontinue the Levaquin and meropenem and complete with p.o. Vantin at 100 mg p.o. b.i.d. We will follow with you. Benson Lamb MD
[2018-05-09 04:18] LABS: BASO # 0.02 K/mm3 (0.0-2.0); BASO % 0.2 % (0.0-3.0); GRAN # 12.15 (1.4-6.5); GRAN % 97.9 % (50.0-68.0); HEMOGLOBIN 7.5 g/dL (14.0-18.0); LYMPH # 0.2 (1.2-3.4); LYMPH % 1.9 % (22.0-35.0); MEAN CELL VOLUME 92.5 fl (80.0-105.0); MEAN CORPUSCULAR HEMOGLOBIN 31.3 pg (25.0-35.0); MEAN CORPUSCULAR HGB CONC 33.8 g/dl (31.0-37.0); MEAN PLATELET VOLUME 10.3 fl (7.0-11.0); RBC 2.4 10^6/uL (3.5-6.1); RED CELL DISTRIBUTION WIDTH 18.5 % (11.5-14.5); WHITE BLOOD COUNT 12.4 10^3/ul (4.5-11.0)
[2018-05-09 04:26] LABS: ALB/GLOB RATIO 1.4 (1.1-1.8); ALBUMIN 3.1 g/dL (3.0-4.8); ALT/SGPT 63 U/L (7-56); AST/SGOT 46 U/L (17-59); BLOOD UREA NITROGEN > 120 mg/dL (7-21); GFR AFRICAN-AMERICAN 9; GFR NON-AFRICAN AMERICAN 8
[2018-05-09] MEDS: Sodium Bicarbonate 8.4% 100 MEQ in Dextrose 5% In Water 1,000 ML IV SCH ×2 (04:36→17:28)
[2018-05-09] MEDS: Albuterol-Ipratrop 3 mg / 0.5 (3 ml) UD IH PRN ×3 (04:55→20:11)
[2018-05-09 06:27] VITALS: O2SAT 90
--- NOTE | 2018-05-09 06:51 | CP.PCM.PN ---
Subjective - Date & Time of Evaluation Date of Evaluation: 05/09/18 Time of Evaluation: 06:20 - Subjective Subjective: No distress,lying in bed watching TV, awake, alert Reason for consultation and follow up: Cardiac evaluation for rapid atrial fibrillation,came in due to cough and fever diagnosed with pneumonia.History of coronary artery disease with stents,hypertension Seen and examined by me and Dr. Caldera Objective - Vital Signs/Intake and Output Vital Signs (last 24 hours): Temp Pulse Resp BP Pulse Ox 97.7 F 87 19 136/73 90 L 05/09/18 06:00 05/09/18 06:00 05/09/18 06:00 05/09/18 06:00 05/09/18 06:00 Intake and Output: 05/08/18 05/09/18 18:59 06:59 Intake Total 90 1450 Output Total 350 Balance 90 1100 - Medications Medications: Current Medications Acetaminophen (Tylenol 325mg Tab) 650 mg PO Q4H PRN PRN Reason: Fever >100.4 F Last Admin: 05/04/18 16:12 Dose: 650 mg Albuterol/Ipratropium (Duoneb 3 Mg/0.5 Mg (3 Ml) Ud) 3 ml IH [id number] PRN PRN Reason: Shortness of Breath Last Admin: 05/09/18 04:55 Dose: 3 ml Calcium Acetate (Phoslo) 667 mg PO WM [facility] Last Admin: 05/08/18 17:36 Dose: 667 mg Cefpodoxime Proxetil (Vantin) 100 mg PO Q24H [facility] PRN Reason: Protocol Last Admin: 05/08/18 17:36 Dose: 100 mg Dexamethasone (Decadron Inj) 20 mg IVP DAILY [facility] Last Admin: 05/08/18 10:22 Dose: 20 mg Diltiazem HCl (Cardizem) 60 mg PO TID [facility] Last Admin: 05/08/18 18:51 Dose: 60 mg Guaifenesin/Dextromethorphan (Robitussin Dm) 5 ml PO Q4H PRN PRN Reason: Cough Last Admin: 05/07/18 22:06 Dose: 5 ml Heparin Sodium/Sodium Chloride (Heparin 45959 Units/250ml 1/2 Normal Saline) 25 ,000 units in 250 mls @ 9.181 mls/hr IV .Q24H PRN; Protocol; 11 UNITS/KG/HR PRN Reason: ADJUST RATE PER PROTOCOL Last Admin: 05/08/18 23:40 Dose: 21 units/kg/hr, 17.527 mls/hr Sodium Bicarbonate 100 meq/ (Dextrose) 1,100 mls @ 80 mls/hr IV .[id number] [facility] Last Admin: 05/09/18 04:36 Dose: 80 mls/hr Metoprolol Tartrate (Lopressor) 25 mg PO BID [facility] Last Admin: 05/08/18 17:35 Dose: 25 mg Ondansetron HCl (Zofran Inj) 4 mg IVP Q6H PRN PRN Reason: Nausea/Vomiting - Labs Labs: 05/09/18 03:50 05/09/18 03:50 PT 18.1 SECONDS (9.4-12.5) H 05/03/18 20:25 INR 1.57 (0.93-1.08) H 05/03/18 20:25 APTT 54.3 Seconds (25.1-36.5) H 05/09/18 03:50 - Constitutional Appears: No Acute Distress - Head Exam Head Exam: NORMOCEPHALIC - Eye Exam Eye Exam: Normal appearance - ENT Exam ENT Exam: Mucous Membranes Moist - Respiratory Exam Respiratory Exam: Decreased Breath Sounds, Rhonchi, NORMAL BREATHING PATTERN - Cardiovascular Exam Cardiovascular Exam: REGULAR RHYTHM, +S1, +S2 Additional comments: Telemetry- Afib=70's - GI/Abdominal Exam GI & Abdominal Exam: Soft, Normal Bowel Sounds - Extremities Exam Extremities Exam: Normal Capillary Refill - Neurological Exam Neurological Exam: Alert, Awake, Oriented x3 - Psychiatric Exam Psychiatric exam: Normal Affect, Normal Mood - Skin Skin Exam: Intact, Normal Color, Warm Assessment and Plan - Assessment and Plan (Free Text) Assessment: A 68 year old male who came in to the ER due to cough and fever, diagnosed with pneumonia. Had new onset rapid atrial fibrillation,thus cardiac consult was called for. History of coronary artery disease with stents,() hypertension.pulmonary hypertension,hypercholesterolemia. 05/07/18.CT guided renal biopsy done. On IV antibiotics for pneumonia.IV cardizem changed to oral cardizem. Controlled Afib rate. Plan: Stable cardiac status Blood pressure controlled Controlled rate atrial fibrillation Telemetry Afib 70's/min On oral Cardizem Denies chest pain On Heparin drip, titrate to protocol Post renal CT guided biopsy IV antibiotics changed to oral (Vantin) On Lopressor 50 mg BID Renal on consult for elevated BUN/creatinine Continue current management Continue current medications Will follow up Plan and treatment discussed with Dr. Caldera
--- NOTE | 2018-05-09 09:09 | CARD ---
APPROVED REPORT EKG Measurement Heart [id number] <Conclusion> Atrial fibrillation with rapid ventricular response Abnormal ECG
--- NOTE | 2018-05-09 11:38 | CP.PCM.PN ---
Subjective - Date & Time of Evaluation Date of Evaluation: 05/09/18 Time of Evaluation: 09:30 - Subjective Subjective: NAD, denies chest pain, no SOB Objective - Vital Signs/Intake and Output Vital Signs (last 24 hours): Temp Pulse Resp BP Pulse Ox 97.7 F 108 H 19 121/75 90 L 05/09/18 06:00 05/09/18 10:06 05/09/18 06:00 05/09/18 10:06 05/09/18 06:00 Intake and Output: 05/09/18 05/09/18 06:59 18:59 Intake Total 1450 Output Total 350 Balance 1100 - Medications Medications: Current Medications Acetaminophen (Tylenol 325mg Tab) 650 mg PO Q4H PRN PRN Reason: Fever >100.4 F Last Admin: 05/04/18 16:12 Dose: 650 mg Albuterol/Ipratropium (Duoneb 3 Mg/0.5 Mg (3 Ml) Ud) 3 ml IH [id number] PRN PRN Reason: Shortness of Breath Last Admin: 05/09/18 04:55 Dose: 3 ml Calcium Acetate (Phoslo) 667 mg PO WM [facility] Last Admin: 05/09/18 08:12 Dose: 667 mg Cefpodoxime Proxetil (Vantin) 100 mg PO Q24H [facility] PRN Reason: Protocol Last Admin: 05/08/18 17:36 Dose: 100 mg Dexamethasone (Decadron Inj) 20 mg IVP DAILY [facility] Last Admin: 05/08/18 10:22 Dose: 20 mg Diltiazem HCl (Cardizem) 60 mg PO TID [facility] Last Admin: 05/09/18 10:06 Dose: 60 mg Guaifenesin/Dextromethorphan (Robitussin Dm) 5 ml PO Q4H PRN PRN Reason: Cough Last Admin: 05/07/18 22:06 Dose: 5 ml Heparin Sodium/Sodium Chloride (Heparin 35038 Units/250ml 1/2 Normal Saline) 25 ,000 units in 250 mls @ 9.181 mls/hr IV .Q24H PRN; Protocol; 11 UNITS/KG/HR PRN Reason: ADJUST RATE PER PROTOCOL Last Admin: 05/08/18 23:40 Dose: 21 units/kg/hr, 17.527 mls/hr Sodium Bicarbonate 100 meq/ (Dextrose) 1,100 mls @ 80 mls/hr IV .[id number] [facility] Last Admin: 05/09/18 04:36 Dose: 80 mls/hr Metoprolol Tartrate (Lopressor) 25 mg PO BID [facility] Last Admin: 05/09/18 10:06 Dose: 25 mg Ondansetron HCl (Zofran Inj) 4 mg IVP Q6H PRN PRN Reason: Nausea/Vomiting - Labs Labs: 05/09/18 03:50 05/09/18 03:50 PT 18.1 SECONDS (9.4-12.5) H 05/03/18 20:25 INR 1.57 (0.93-1.08) H 05/03/18 20:25 APTT 54.3 Seconds (25.1-36.5) H 05/09/18 03:50 - Respiratory Exam Respiratory Exam: Rhonchi, NORMAL BREATHING PATTERN - Cardiovascular Exam Cardiovascular Exam: REGULAR RHYTHM - GI/Abdominal Exam GI & Abdominal Exam: Soft, Normal Bowel Sounds - Extremities Exam Extremities Exam: Normal Inspection - Neurological Exam Neurological Exam: Alert, Awake - Skin Skin Exam: Dry, Warm Assessment and Plan (1) Acute renal insufficiency Status: Acute (2) Pneumonia Status: Acute (3) Myelodysplasia (myelodysplastic syndrome) Status: Chronic (4) Multiple myeloma Status: Chronic - Assessment and Plan (Free Text) Plan: continue heme-onc/renal/ID follow-up. For possible transfer to [facility]. Renal bx pending
[2018-05-09] MEDS: Heparin25000 units/250ml 1/2NS 25,000 UNITS/250 ML BAG IV PRN (12:42)
[2018-05-09] MEDS: Dexamethasone 20 mg / 5 ml Inj IVP SCH (12:42)
[2018-05-09] MEDS: Cefpodoxime (Vantin) 100 mg Tab PO SCH (17:27)
[2018-05-09] MEDS: guaiFENesin DM 100 mg-10 mg/5 ml UD PO PRN (17:28)
[2018-05-09 17:31] VITALS: BP 120/75
[2018-05-09 17:50] VITALS: RESP 18; TEMP 98
[2018-05-09 18:48] VITALS: PULSE 89
--- NOTE | 2018-05-09 22:50 | PN ---
DATE: 05/09/2018 SUBJECTIVE: The patient is in bed, in no acute distress, nontoxic. PHYSICAL EXAMINATION: VITAL SIGNS: Temperature is 98, blood pressure is 120/70, respiratory rate of 16. HEENT: Unremarkable. NECK: Supple. LUNGS: Have decreased breath sounds. HEART: Normal S1, S2. ABDOMEN: Soft and nontender. LABORATORY DATA: Reveals a white count of 12,400, hemoglobin of 7.5. Coagulation is noted and chemistries reveal a BUN of 128, creatinine 7.2. Microbiology is noted. ASSESSMENT AND PLAN: This is a 68-year-old male seen early this morning in room 271, bed 2 who was admitted with severe sepsis, [id number] renal failure, Klebsiella bacteremia, neutropenia, myelodysplastic syndrome status post chemotherapy. Completed with IV antibiotics, Levaquin and meropenem, now on p.o. Vantin to complete therapy with p.o. antibiotics. We will follow closely with you. Benson Lamb MD
--- NOTE | 2018-05-10 03:26 | PN ---
DATE: 05/09/2018 SUBJECTIVE: Patient is seen lying in bed. He is awake, he is alert. He denies any shortness of breath. He denies any chest tightness. He denies any nausea or vomiting. PHYSICAL EXAMINATION: GENERAL: An elderly male lying in bed. VITAL SIGNS: Blood pressure 120/75, heart rate 66, respiratory rate 18, temperature 98. HEENT: Normocephalic, atraumatic, positive pallor. NECK: Supple, no JVD. LUNGS: Bilateral equal air entry, bilateral rhonchi, no rales. CARDIAC: S1, S2. Regular rate and rhythm. No murmur, no rub. ABDOMEN: Obese, distended, soft, nontender, bowel sounds present. EXTREMITIES: No lower extremity edema. INTAKE AND OUTPUT: 1450/350. LABORATORY DATA: WBC 12, hemoglobin 7.5, hematocrit 22, platelets 336. Sodium 133, potassium 5, chloride 93, CO2 of 23, BUN greater than 120, creatinine 7.2, glucose 168, calcium 7, albumin 3.1, corrected calcium is 7.7. PTH 313. Iron saturation 48, iron 108, ferritin 982. CURRENT MEDICATIONS: Cardizem 60 t.i.d., Decadron, DuoNeb, heparin at 21 units per kg per minute, Lopressor, PhosLo, IV fluids with sodium bicarbonate, Tylenol, Vantin, Zofran. ASSESSMENT: 1. Acute kidney injury, acute tubular necrosis (?), myeloma kidney (?) 2. Severe anemia. 3. History of multiple myeloma. 4. Hypertension. 5. Noninsulin-dependent diabetes mellitus. 6. Hyperphosphatemia. 7. Secondary hyperparathyroidism. PLAN: 1. Creatinine unchanged in the last 72 hours, hopefully all recovery of renal function. 2. No uremic signs or symptoms at this time, continue to monitor closely. 3. Continue Decadron as per Oncology. 4. Continue IV fluids with sodium bicarbonate. 5. Plan is being made for transfer to [place]. Genevieve Adamson MD
== END 2018-05-09 20:56 | disposition short-term general hospital (02) | DRG 871 ==
LOC: ED 18:39 → ERH 21:32 → 2RSO 05-04 00:05
PROVIDERS: ADMIT Internal Medicine; ATTEND Internal Medicine
PROC: 30233N1 Transfusion of Nonautologous Red Blood Cells into Peripheral Vein, Percutaneous Approach (ICD-10-PCS; principal; 2018-05-04)
DX: A41.59 Other Gram-negative sepsis (principal); J18.9 Pneumonia, unspecified organism; N17.0 Acute kidney failure with tubular necrosis; J44.0 Chronic obstructive pulmonary disease with (acute) lower respiratory infection; C90.00 Multiple myeloma not having achieved remission; N25.81 Secondary hyperparathyroidism of renal origin; D61.818 Other pancytopenia; E87.2 Acidosis; I47.2 Ventricular tachycardia; I48.91 Unspecified atrial fibrillation; R65.20 Severe sepsis without septic shock; E86.0 Dehydration; D46.9 Myelodysplastic syndrome, unspecified; I12.9 Hypertensive chronic kidney disease with stage 1 through stage 4 chronic kidney disease, or unspecified chronic kidney disease; N18.2 Chronic kidney disease, stage 2 (mild); N40.0 Benign prostatic hyperplasia without lower urinary tract symptoms; Y95 Nosocomial condition; I25.10 Atherosclerotic heart disease of native coronary artery without angina pectoris; E78.5 Hyperlipidemia, unspecified; I27.20 Pulmonary hypertension, unspecified; E78.00 Pure hypercholesterolemia, unspecified; D70.3 Neutropenia due to infection; E83.51 Hypocalcemia; D70.1 Agranulocytosis secondary to cancer chemotherapy; T45.1X5A Adverse effect of antineoplastic and immunosuppressive drugs, initial encounter; E83.39 Other disorders of phosphorus metabolism; F17.200 Nicotine dependence, unspecified, uncomplicated; E87.5 Hyperkalemia; Z95.5 Presence of coronary angioplasty implant and graft